=== PATIENT | female | born 1975 | race Caucasian/White ===

== ENCOUNTER 2023-01-12 13:26 | Emergency (ER) | payer OTHER, SELFPAY ==
[2023-01-12 13:31] VITALS: BP 158/88; PULSE 77; RESP 16; TEMP 36.7; O2SAT 99; BMI 47.6
--- NOTE | 2023-01-12 14:15 | CT_ITS ---
The [address] [address] Patient Name: RADHA BENTLEY MRN: [id number] date: 1975 Sex: F Assigned Patient Location: ER Current Patient Location: ER Accession/Order Number: [id number] Exam Date: 01/12/2023 14:38 Report Date: 01/12/2023 14:59 At the request of: ERWIN DOMINGUEZ Procedure: CT cervical spine wo con CT cervical spine CLINICAL: Neck pain. TECHNIQUE: Contiguous transaxial images obtained from skullbase through cervical spine without administration of intravenous contrast. Coronal and sagittal reformations were obtained. Dose reduction: mA and/or kV are were adjusted by automated exposure control software based upon patients height and weight. FINDINGS: There are no prior exams for comparison. There is no prevertebral soft tissue swelling or acute cervical spine fracture. There is no significant intervertebral disc space narrowing. There is no listhesis. The osseous central canal and osseous neural foramina are patent. There is atlantodental articulation osteoarthritis. CT/CT cervical spine wo con IMPRESSION: 1. No acute cervical spine fracture. Electronically authenticated by: MILEY SPRING Date: 01/12/2023 14:59
--- NOTE | 2023-01-12 14:19 | ED_ITS ---
HPI - Neck Pain/Injury General Chief Complaint: Neck Pain/Injury Stated Complaint: NECK PAIN Time Seen by Provider: 01/12/23 14:09 Source: patient Mode of arrival: walk-in History of Present Illness HPI Narrative: Patient is coming to the ER with a left-sided neck pain associated with no numbness tingling but she did mention that initially when she had the neck pain she felt that it was radiating down her back, the patient have a left hip and lower back pain that not a new complaint No numbness tingling or no radiation down her legs The patient also has no radiation down her arms no weakness She mentioned that the injury happened at work she was not carrying any heavy objects but she was turning her neck to the left side when all of a sudden the pain started Related Data Previous Rx's Medication Instructions Recorded diclofenac sodium 75 mg 75 mg PO BID PRN pain #14 tabs 01/12/23 tablet,delayed release orphenadrine citrate 100 mg 100 mg PO DAILY PRN muscle spasm 01/12/23 tablet,extended release #10 tabs Allergies Allergy/AdvReac Type Severity Reaction Status Date / Time amoxicillin [From Augmentin] Allergy Severe Verified 01/12/23 13:38 cefaclor [From Ceclor] Allergy Severe Verified 01/12/23 13:38 clavulanic acid Allergy Severe Verified 01/12/23 13:38 [From Augmentin] Sulfa (Sulfonamide Allergy Severe Verified 01/12/23 13:38 Antibiotics) Review of Systems ROS Status of ROS 10 or more systems reviewed and unremarkable except as noted in history and below Exam Narrative Exam Narrative: Nurses notes and vital signs reviewed and patient is not hypoxic. General: Well-appearing and in no apparent distress. Skin: Warm, dry, no pallor noted. No rash. Head: Normocephalic, atraumatic. Neck: Supple, left paraspinal muscle tenderness and no intervertebral line tenderness Eye: Pupils are equal, round and EOMI. No scleral icterus. Ears, Nose, Mouth, and Throat: TM are clear, no nasal mucosal hypertrophy. Oral mucosa is moist, no posterior oropharynx erythema, uvula is mid-line Cardiovascular: Regular Rate and Rhythm without murmur, gallop or rub. Respiratory: No accessory muscle use or respiratory distress. Lungs are clear to auscultation, no wheezing, rales or rhonchi Chest Wall: no tenderness Back: No midline thoracic or lumbar vertebral tenderness. No CVA tenderness Musculoskeletal: normal ROM, no calf or popliteal tenderness, no lower extremity edema/swelling GI: Abdomen is soft, non-distended. Normal bowel sounds. No masses appreciated. No tenderness to palpation. No rebound, guarding, or rigidity noted. Neurological: A&O x4. No cranial nerve dysfunction observed. No truncal ataxia. Moves all extremities. Sensation intact. Psychiatric: Cooperative and interactive. Normal mood and affect. Constitutional Vital Signs, click to edit/add: Last Vital Signs Temp 98.1 F 01/12/23 13:31 Pulse 77 01/12/23 13:31 Resp 16 01/12/23 13:31 BP 158/88 H 01/12/23 13:31 Pulse Ox 99 01/12/23 13:31 O2 Del Method Room Air 01/12/23 13:31 Course Vital Signs Vital signs: Vital Signs Temperature 98.1 F 01/12/23 13:31 Pulse Rate 77 01/12/23 13:31 Respiratory Rate 16 01/12/23 13:31 Blood Pressure 158/88 H 01/12/23 13:31 Pulse Oximetry 99 01/12/23 13:31 Oxygen Delivery Method Room Air 01/12/23 13:31 Temperature 98.1 F 01/12/23 13:31 Pulse Rate 77 01/12/23 13:31 Respiratory Rate 16 01/12/23 13:31 Blood Pressure 158/88 H 01/12/23 13:31 Pulse Oximetry 99 01/12/23 13:31 Oxygen Delivery Method Room Air 01/12/23 13:31 MDM - Neck Pain/Injury MDM Narrative Medical decision making narrative: Treated in the ER with Toradol and Norflex The patient also had a CAT scan of the cervical spine showing no acute significant pathology the patient was discharged home with more supportive care with rest from carrying any heavy objects more than 10 pounds for the next 2 to 3 days Follow-up with occupational health as outpatient Discharge Plan Discharge Chief Complaint: Neck Pain/Injury Clinical Impression: Strain of neck muscle Patient Disposition: Home, Self-Care Time of Disposition Decision: 15:14 Condition: Good Prescriptions / Home Meds: New orphenadrine citrate 100 mg tablet extended release 100 mg PO DAILY PRN (Reason: muscle spasm) Qty: 10 0RF diclofenac sodium 75 mg tablet,delayed release (DR/EC) 75 mg PO BID PRN (Reason: pain) Qty: 14 0RF Instructions: Cervical Strain (ED) Stand Alone Forms: Portal Instructions Referrals: [facility] [Outside] - As soon as possible Physician,Non-Staff, MD [Primary Care Provider] - 1 week
[2023-01-12] MEDS: ORPHENADRINE 60 MG/ 2 ML VIAL IM (14:22)
[2023-01-12] MEDS: KETOROLAC TROMETHAMINE 60 MG/2 ML VIAL IM (14:22)
== END 2023-01-12 15:39 | disposition home or self-care (01) ==
PROVIDERS: Emergency Provider Emergency Medicine
DX: S16.1XXA Strain of muscle, fascia and tendon at neck level, initial encounter (principal); X50.9XXA Other and unspecified overexertion or strenuous movements or postures, initial encounter
CPT/HCPCS: 72125; 96372; 99285

== ENCOUNTER 2025-01-24 12:11 | Emergency (ER) | payer OTHER, SELFPAY ==
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
[2025-01-24 12:14] VITALS: BP 175/94; PULSE 82; TEMP 36.9; O2SAT 100; BMI 38.0
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
--- OUTSIDE RECORDS SUMMARY | 2025-01-24 12:47 | XMS_ITS | Encounter Summary ---
Author Organization [facility] Address [address] [place] [address] Care Team Providers Care Perfect Binder Feeder Offbearer Name Role Phone Jacky Rolle MD Primary Care Provider [phone] Encounter Details DateTypeDepartmentCare Team (Latest Contact Info)Jputpscksok68/06/2025Travel Social History Tobacco UseTypesPacks/DayYears UsedDateSmoking Tobacco: NlzmznMsbhlvtvdg0927 - 2012Smokeless Tobacco: NeverAlcohol UseStandard Drinks/WeekCommentsYes0 (1 standard drink = 0.6 oz pure alcohol)PHQ-2AnswerDate RecordedPatient Health Questionnaire-2 Gbmqb43303/19/2024Humiliation, Afraid, Rape, and Kick questionnaireAnswerDate RecordedWithin the [...] relatives?Twice a week01/17/2025How often do you attend bahai or restorationism services?Never01/17/2025Do you belong to any clubs or organizations such as bahai groups, unions, fraternal or athletic groups, or school groups?No01/17/2025How often do you attend meetings of the clubs or organizations you belong to?Never01/17/2025re you , , , , never , or living with a partner?Never epgxcbs7101/17/2025 AUDIT-CAnswerDate RecordedQ1: How often do you have a drink containing alcohol? Monthly or less01/17/2025Q2: How many drinks containing alcohol do you have on a typical day when you are drinking?3 or Q3: How often do you have six or more drinks on one occasion?Less than lnqtubz7401/17/2025Overall Financial Resource Strain (CARDIA)AnswerDate RecordedHow hard is it for you to pay for the very basics like food, housing, medical care, and heating?Not hard at all 01/17/2025[facility] [place] [facility] - Occupational Stress QuestionnaireAnswerDate RecordedDo you feel stress - tense, restless, nervous, or anxious, or unable to sleep at night because yourmind is troubled all the time - these days?Only a mxsnsr7501/17/2025Exercise Vital SignAnswerDate Recorded On average, how many [...] were you homeless or living in a [place] health care facility (including now)?No01/17/2025B1300 Health LiteracyAnswerDate RecordedHow often do you need to have someone help you when you read instructions, pamphlets, or other written material from your doctor or pharmacy?Never01/17/2025CommentsUnknownSex and Gender InformationValue Date RecordedSex Assigned at BirthNot on fileLegal LbnImdcrt43/15/2023 11:19 PM EDTGender IdentityNot on fileSexual OrientationNot on filedocumented as of this encounter Functional Status * AUDIT-C ScoreAnswerDate of MgwhtgdzolJrkkrm006/06/2025 7:55 AM Lianne, Generic * Q1: How often do you have a drink containing alcohol?AnswerDate of Assessment AuthorMonthly or less01/17/2025 7:55 AM Lianne, Generic * Q2: How many drinks containing alcohol do you have on a typical day when you are drinking?AnswerDate of AssessmentAuthor3 or 7:55 AM EST [place], Generic * Q3: How often do you have six or more drinks on one occasion?AnswerDate of AssessmentAuthorLess than cyeukok6201/17/2025 7:55 AM Lianne, Generic * Over the past 2 weeks, how often have you been bothered by any of the following problems?QuestionAnswerDate of AssessmentAuthorLittle interest or pleasure in doing thingsNot at all01/17/2025 8:42 AM Concepcion Vitale LPN Feeling down, depressed, or hopelessNot at all01/17/2025 8:42 AM Concepcion Vitale LPNPatient Health Questionnaire-2 Xrqtv859 8:42 AM Concepcion Vitale LPN documented as of this encounter Plan of Treatment Not on file documented as of this encounter Visit Diagnoses Not on filedocumented in this encounter Care Teams Team MemberRelationshipSpecialtyStart DateEnd Date Jacky Rolle MD [address] [address] PCP - GeneralInternal Medicine03/21/23documented as of this encounter
--- OUTSIDE RECORDS SUMMARY | 2025-01-24 12:47 | XMS_ITS | Clinical Summary ---
Author Organization [facility] Address [address] [facility] [place] [address] Care Team Providers Care Head Tennis Professional Name Role Phone Ruslan Chong MD Unavailable [phone] Monique Jensen MD Unavailable [phone] Source Comments The following information is NOT included in Care Everywhere downloads:Psychiatric notes, ECG results, Cardiac Rehab notes, Pulmonary Function notes, data from [employer] (includes but not limited toPregnancy data,audiograms, eye exams, pre-surgical evaluation notes, well-child exam data).[facility] Allergies Active AllergyReactionsCriticalityNoted DateCommentsAmoxicillin-Pot Clavulanate Ytjhiksy37/09/2011upropionRash,Chest pain,Dry mouth,Cprgboo3912/09/2020efaclor Rash11/28/20152797WjksilzzwbmCkysomjw01/03/2000 took amoxicillin with no problem Sulfa Civrrrhojpc17/03/2000 stomache pains Medications MedicationSigDispense QuantityRefillsLast FilledStart DateEnd DateStatus Multiple Vitamin (MULTI-VITAMIN ORAL) Take by mouth daily.Active albuterol (PROVENTIL HFA) INHALATION HFA inhaler (VENTOLIN,PROAIR,PROVENTIL) 90mcg Inhale 2 Puffs by mouth every 4 hours as needed for Wheezing. 8.5 g ctive levothyroxine (SYNTHROID) 137 MCG tablet TAKE 1 TABLET BY MOUTH ONCE DAILY (30 MINUTES BEFORE BREAKFAST) 90 Tablet ctive venlafaxine (EFFEXOR XR) 37.5 MG ER capsule Take 1 Capsule by mouth daily. 90 Capsule 12/14/2022ctive triamterene-hydrochlorothiazide (DYAZIDE) 37.5-25 MG per capsule TAKE 1 CAPSULE BY MOUTH EVERY MORNING 90 Capsule 03/10/2023ctive Active Problems ProblemNoted DateDiagnosed DateCOVID-19 with pulmonary znjiggnsfvr12/28/2022 Yvzzouutfsmy29/18/2022ilateral carpal tunnel abgridlu42/02/2021arpal tunnel syndrome, hagrhvdwv30/08/2020Routine general medical examination at a health care mpmgbind73/27/2018Plantar jzzrrhepq07/27/2018Portal vein thrombosis 10/22/2015Right upper quadrant abdominal pain10/15/2015Postablative kzfymcrnofapaf31/14/2009sthma Overview (06/29/2018): asthma Other seborrheic dermatitisRosacea Resolved Problems ProblemNoted DateDiagnosed DateResolved DateGraves' icizgrl96 Overview (06/29/2018): Grave's disease Immunizations ImmunizationAdministration DatesNext DueInfluenza, unspecified formulation (CVX=88)01/25/2002MMR, Aohdnis-Gtdbd-Efnbhuj (CVX=03)02/08/2005Moderna Monovalent (12+ yrs) COVID-19 vaccine, mRNA, spike protein, LNP, PF, 100 mcg/0.5 mL (GVE=094)05/23/2021,04/25/2021TST-PPD, intradermal (PPD) (CVX=96)02/05/2005, 01/26/2005Td (adult), unspecified formulation (MPU=336)01/26/2005,08/10/1995Tdap (XGP=225)11/19/2013 Family History Medical HistoryRelationNameCommentsGood healthFatherGood healthMotherCoronary Artery DiseasePaternal GrandfatherHypertensionPaternal GrandfatherLipid Disorder Paternal GrandfatherCancerPaternal Grandmotherbrain tumorRelationNameStatus CommentsFatherMotherPaternal GrandfatherPaternal Grandmother Social History Tobacco UseTypesPacks/DayYears UsedDateSmoking Tobacco: FormerCigarettes0.55 Smokeless Tobacco: Never Tobacco Cessation:Counseling Given: Not Answered Alcohol UseStandard Drinks/WeekCommentsNo0 (1 standard drink = 0.6 oz pure alcohol)Humiliation, Afraid, Rape, and Kick questionnaireAnswerDate Recorded Within the last year, have you been afraid of your partner or ex-partner?No 07/07/2022Within the last year, have you been humiliated or emotionally abused in other ways by your partner or ex-partner?No07/07/2022Within the last year, have you been kicked, hit, slapped, or otherwise physically hurt by your partner or ex-partner?No07/07/2022Within the last year, have you been raped or forced to have any kind of sexual activity by your partner or ex-partner?No07/07/2022 Social Connection and Isolation Panel [NHANES]AnswerDate RecordedIn a typical week, how many times do you talk on the phone with family, friends, or neighbors?More than three times a week07/07/2022How often do you get together with friends or relatives?Once a week07/07/2022How often do you attend anabaptism or christian services?Never07/07/2022o you belong to any clubs or organizations such as anabaptism groups, unions, fraternal or athletic groups, or school groups? Yes07/07/2022How often do you attend meetings of the clubs or organizations you belong to?More than 4 times per year07/07/2022re you , , , , never , or living with a partner?Living with partner 07/07/2022Overall Financial Resource Strain (CARDIA)AnswerDate RecordedHow hard is it for you to pay for the very basics like food, housing, medical care, and heating?Not very hard07/07/2022HQ-2AnswerDate RecordedPHQ-2 Nojuc926 [place] [employer] - Occupational Stress Questionnaire AnswerDate RecordedDo you feel stress - tense, restless, nervous, or anxious, or unable to sleep at night because yourmind is troubled all the time - these days?To some htuxfq6207/07/2022Exercise Vital SignAnswerDate RecordedOn average, how many days per week do you engage in moderate to strenuous exercise (like a brisk walk)?3 days07/07/2022On average, how many minutes do you engage in exercise at this level?30 min07/07/2022Hunger Vital SignAnswerDate Recorded Within the past 12 months, you worried that your food would run out before you got the money to buymore.Never true07/07/2022Within the past 12 months, the food you bought just didn't last and you didn't have money to get more.Never true 07/07/2022RAPARE - TransportationAnswerDate RecordedIn the past 12 months, has lack of transportation kept you from medical appointments or from getting medications?No07/07/2022In the past 12 months, has lack of transportation kept you from meetings, work, or from getting things needed for daily living?No 07/07/2022Housing Stability Vital SignAnswerDate RecordedIn the last 12 months, was there a time when you were not able to pay the mortgage or rent on time?No 07/07/2022In the last 12 months, how many places have you lived?In the last 12 months, was there a time when you did not have a steady place to sleep or slept in pemaquidelter (including now)?No07/07/2022EducationAnswerDate RecordedWhat is the highest level of school you have completed or the highest degree you have received?Associate degree: occupational, technical, or vocational eogngiy2010/22/2020exually ActiveBirth ControlPartnersCommentsYesMale Substance UseTypesUse/WeekCommentsNoCommentsNoSex and Gender Information ValueDate RecordedSex Assigned at BirthNot on fileLegal RxbCfqwxi63/04/2012 8:07 AM ESTGender IdentityNot on fileSexual OrientationNot on file Last Filed Vital Signs Vital SignReadingTime TakenCommentsBlood Euxscwim827/8907/07/2022 3:28 PM EDT Wifib880407/07/2022 3:23 PM YWEVrhsjweamnm50.9 ??C (98.4 ??F)07/07/2022 3:23 PM EDTRespiratory Scgj804607/07/2022 3:23 PM EDTOxygen Tzzqdycxdp419%07/07/2022 3:23 PM EDTInhaled Oxygen Concentration--Nscbbg889.3 kg (271 lb 12.8 oz)07/07/2022 3:23 PM BLBRtnoic482.5 cm (5' 2 )07/07/2022 3:23 PM EDTBody Mass Index49.71 07/07/2022 3:23 PM EDT Plan of Treatment Health MaintenanceDue DateLast CryaIjhajztqTbxgtdhxlor40/03/1977Hepatitis C Kiavybkk33/03/1995Hepatitis A (HAV) Vaccine (optional start 19+ years)10/15/1995 Hepatitis B (HBV) Vaccine (1 of 3 - 19+ 3-dose series)10/15/1995Pneumococcal Vaccine(s) (1 of 2 - PCV)10/15/1995CRC Wwzglpcfy38/03/2022Cologuard (Stool DNA) 2021FIT2021TSH208/01/2021, 02/18/2020, 01/18/2019, Additional history existsBasic Metabolic Panel/ (Previously completed), 02/18/2020, 01/18/2019, Additional history existsMammography /, 1Pap Smear/01/2021, 02/28/2013, 02/11/2012, Additional history existsTetanus (Td or Tdap) Iafaftz2611/20/2023 11/19/2013, 01/26/2005, 08/10/1995COVID-19 Vaccine ( season) 503/02/2022, 04/25/2021Influenza Vaccine (#1)/ Worjrxhtvsy41/11/959081/01/2021, 02/18/2020, 01/18/2019, Additional history existsShingles (RZV) Vaccine (1 of 2)2026Tdap TdafzzfQrcrlgfuv01/08/2014 HIV UthyCccwdjotu71/07/2016, 12/18/2013, 01/26/2005, Additional history exists Goals GoalPatient Goal TypeAssociated ProblemsRecent ProgressPatient-Stated?Author Blood Pressure < 140/90 Blood Nefjvirk166/89(07/07/2022 3:28 PM EDT)Kadi Peters MD Lose weight GeneralNot on track(04/08/2015 10:39 AM EST)Geovanna Lopez MA Procedures Procedure NamePriorityDate/TimeAssociated DiagnosisCommentsMG MAMMO SCREEN BILAT KOBE W/TIQJebfwzn39/26/2023 12:48 PM EDT Screening mammogram for breast cancer SBRCayjyeu95/11/2021 9:47 AM EDT Irregular menses FULL LIPID BZLZLFBCsntysz67/11/2021 9:47 AM EDT Elevated cholesterol PAP JLWMATtceijo69/11/2021 9:47 AM EDT Encounter for gynecological examination with Papanicolaou smear of cervix BASIC METABOLIC YEEANMsbyrqw43/07/2020 9:37 AM EST Hypertension, unspecified type HIV 1/HIV 2 COMBO AG/EBWkxbabd84/07/2016 12:15 PM EST Portal vein thrombosis from Last 3 Months or Most Recently Relevant to Health Maintenance Results * MG MAMMO SCREEN BILAT KOBE W/CAD (07/07/2022 12:48 PM EDT)ComponentValueRef RangeTest MethodAnalysis TimePerformed AtPathologist SignatureBreast Density The breast tissue is heterogeneously dense, which may obscure detection of small masses.RADIOLOGYBI-RADS Category0: Incomplete, Needs Additional Imaging EvaluationRADIOLOGYEstimated lifetime Breast Cancer riskAverage (less than 15%, as per the Tyrer-Cuzick/BRISA model)RADIOLOGYAnatomical RegionLaterality ModalityMG ScreeningN/AMammographySpecimen (Source)Anatomical Location / LateralityCollection Method / VolumeCollection TimeReceived Time07/07/2022 12:48 PM EDT Narrative 07/07/2022 1:11 PM EDT EXAM: BILATERAL SCREENING MAMMOGRAM W/TOMOSYNTHESIS AND CAD CLINICAL HISTORY: Patient is 46 years old and is seen for screening. The patient has no personal history of cancer. The patient has no family history of breast cancer. COMPARISON: The present examination has been compared to a prior imaging study performed at [facility] on 11/04/2020. TECHNIQUE: The following mammographic views were obtained: bilateral CC, CC with tomosynthesis, MLO and MLO with tomosynthesis. Computer-aided detection was utilized by the radiologist in the interpretation of this examination. MAMMOGRAM FINDINGS: The breast tissue is heterogeneously dense, which may obscure detection of small masses. There is a mass in the lower inner quadrant of the left breast at posterior depth. No suspicious masses, calcifications or other abnormalities are seen in the right breast. IMPRESSION: Mass in the left breast requires additional evaluation. A diagnostic left breast ultrasound exam ([id number]) is recommended. There is no evidence of malignancy in the right breast. BI-RADS Category 0: Incomplete, Needs Additional Imaging Evaluation The Breast Center Coordinator and Navigator will place a reflexive Epic order, contact and schedulethe appropriate appointments. RISK ASSESSMENT: Estimated lifetime breast cancer risk: Average (less than 15%, as per the Tyrer-Cuzick/BRISA model) NCI Lifetime Risk Score: 9.7% Procedure Note Pamella Stapleton MD - 07/07/2022 EXAM: BILATERAL SCREENING MAMMOGRAM W/TOMOSYNTHESIS AND CAD CLINICAL HISTORY: Patient is 46 years old and is seen for screening. The patient has nopersonal history of cancer. The patient has no family history of breastcancer. COMPARISON: The present examination has been compared to a [facility]. TECHNIQUE: The following mammographic views were obtained: bilateral CC, CC with tomosynthesis, MLO and MLO with tomosynthesis. Computer-aided detectionwas utilized by the radiologist in the interpretation of thisexamination. MAMMOGRAM FINDINGS: The breast tissue is heterogeneously dense, which may obscure detection ofsmall masses. There is a mass in the lower inner quadrant of the left breast atposterior depth. No suspicious masses, calcifications or other abnormalities are seen inthe right breast. IMPRESSION: Mass in the left breast requires additional evaluation. A diagnostic leftbreast ultrasound exam ([id number]) is recommended. There is no evidence of malignancy in the right breast. BI-RADS Category 0: Incomplete, Needs Additional Imaging Evaluation The Breast Center Coordinator and Navigator will place a reflexive Epicorder, contact and schedule the appropriate appointments. RISK ASSESSMENT: Estimated lifetime breast cancer risk: Average (less than 15%, as per the Tyrer-Cuzick/BIRSA model) NCI Lifetime Risk Score: 9.7% Authorizing ProviderResult TypeResult StatusMarAllison BYRD MAMMOGRAPHY Final Result * PAP SMEAR (10/22/2020 9:47 AM EDT)ComponentValueRef RangeTest MethodAnalysis TimePerformed AtPathologist SignatureCase ReportGynecologic Cytology Report ? Case: [id number] ? Authorizing Provider: ??Monique Jensen MD ?Collected: ? 10/22/2020 0947 ? Ordering Location: ? [facility] ? Received: ?10/23/2020 0955 ? HEALTH INFORMATION SYSTEMS TECHNICIAN ? First Screen: ?PersolRowena Klein, ? CT(ASCP) ? Specimen: ?CTP PAP SCREEN, Cervical Thin Prep ? 10/28/2020 9:30 AM [facility] LABORATORYSpecimen AdequacySatisfactory for evaluation; endocervical/transformation zone component rlkkvmw8510/28/2020 9:30 AM [facility] LABORATORYGeneral CategorizationNegative for intraepithelial lesion or bsycscryks91/17/2021 9:30 AM [facility] LABORATORYEvaluated by: . I certify that I personally conducted the diagnostic evaluation of the above specimen(s) and have rendered the final diagnosis(es). 10/28/2020 9:30 AM [facility] LABORATORYReflex HPVPerform HPV if Negative or ASCUS10/28/2020 9:30 AM [facility] LABORATORYEducational Note10/28/2020 9:30 AM [facility] LABORATORYComment: The Pap smear is a screen test for the detection of precancerous or cancerous lesions. A negative result does not entirely exclude the presence of an abnormality. This ThinPrep pap test was scanned by the [employer] Imaging System ([employer]), as well as examined by the certified addiction counselor and/or Cytopathologist listed above to enhance the sensitivity of this screening test for cervical cancer and precancerous disease. Specimen (Source)Anatomical Location / LateralityCollection Method / Volume Collection TimeReceived TimeThinPrep (Cervical Thin Prep)10/22/2020 9:47 AM EDT 10/23/2020 9:55 AM EDT Narrative Authorizing ProviderResult TypeResult StatusMonique BYRD CP/AP ORDERABLEFinal ResultPerforming OrganizationAddressty/State/ZIP CodePhone Number [facility] [address] [place] [address] * TSH (10/22/2020 9:47 AM EDT)ComponentValueRef RangeTest MethodAnalysis Time Performed AtPathologist SignatureTSH3.1010.450 - 5.330 uIU/mL10/22/2020 5:09 PM EDCOOS[facility] PATHOLOG[facility] LABORATORYComment: Referance range for women as applicable: First Trimester: ?? 0. 050 to 3.700 uIU/mL Second Trimester: ??0. 310 to 4.350 uIU/mL Third Trimester: ?? 0. 410 to 5.180 uIU/mL Specimen (Source)Anatomical Location / LateralityCollection Method / Volume Collection TimeReceived TimeBloodBLOOD SPECIMEN / UnknownVenipuncture / Unknown 10/22/2020 9:47 AM EDT10/22/2020 1:51 PM EDT Narrative Authorizing ProviderResult TypeResult StatusMonique Jensen MD98 GENERAL LAB Final ResultPerforming OrganizationAddressCity/State/ZIP CodePhone Number [facility] [address] [place] [phone] * (ABNORMAL) FULL LIPID PROFILE (10/22/2020 9:47 AM EDT)ComponentValueRef Range Test MethodAnalysis TimePerformed AtPathologist RfvlsipadSnlsyipkmmh333(H)<181 mg/dL10/22/2020 6:16 PM EDCO[facility] UFXEOCLTLZGhroirlniloaa750(H)<151 mg/dL10/22/2020 6:16 PM EDCO[facility] PATHOLOGY LABORATORYHDL Txcsmjmremz45(L)>54 mg/dL10/22/2020 6:16 PM EDCO[facility] PATHOLOGY LABORATORYLDL beflnzftdmj986(H)<111 mg/dL10/22/2020 6:16 PM EDCO[facility] PATHOLOGY LABORATORYNon-HDL Bswvlvnmadb049(H) <130 mg/dL10/22/2020 6:16 PM EDCO[facility] PATHOLOGY LABORATORYChol/HDL Ratio4.69 10/22/2020 6:16 PM [facility] LABORATORYLDL/HDL Ratio2.98<3.57010/22/2020 6:16 PM [facility] LABORATORYSpecimen (Source)Anatomical Location / LateralityCollection Method / VolumeCollection TimeReceived TimeBloodBLOOD SPECIMEN / UnknownVenipuncture / Whkzuja4010/22/2020 9:47 AM EDT10/22/2020 1:51 PM EDT Narrative Authorizing ProviderResult TypeResult StatusPaula Tre Jensen MD98 GENERAL LAB Final ResultPerforming OrganizationAddressCity/State/ZIP CodePhone Number [facility] [address] [place] [address] * (ABNORMAL) BASIC METABOLIC PANEL (02/18/2020 9:37 AM EST)ComponentValueRef RangeTest MethodAnalysis TimePerformed AtPathologist JnimetfzkEubbqmo475(H)68 - 110 mg/dL02/18/2020 2:09 PM [facility] VWOTSOOENZAcdjwx515584 - 148 mmol/L104/20/2019 2:09 PM [facility] LABORATORYPotassium4.03.3 - 5.3 mmol/L104/20/2019 2:09 PM [facility] LABORATORYCarbon Nrgjdwe1229 - 30 mmol/L104/20/2019 2:09 PM [facility] DCBGKSYZEGRdqoindx47775 - 111 mmol/L 02/18/2020 2:09 PM [facility] LABORATORYBlood Urea Fifocdaf769 - 22 mg/dL02/18/2020 2:09 PM [facility] LABORATORYCreatinine0.800.50 - 1.10 mg/dL02/18/2020 2:09 PM [facility] LABORATORYCalcium9.78.4 - 10.4 mg/dL 02/18/2020 2:09 PM [facility] LABORATORYAnion Nah707 - 13104/20/2019 2:09 PM [facility] LABORATORYEstimated GFR (CKD-EPI)91>=60 mL/min/1.73sqm 02/18/2020 2:09 PM [facility] PATH[facility] LABORATORYSpecimen (Source)Anatomical Location / LateralityCollection Method / VolumeCollection TimeReceived Time BloodBLOOD SPECIMEN / UnknownVenipuncture / Ckmtrot3302/18/2020 9:37 AM EST 02/18/2020 1:41 PM EST Narrative Authorizing ProviderResult TypeResult StatusKadi Moreno MD98 GENERAL LAB Final ResultPerforming OrganizationAddressty/State/ZIP CodePhone Number [facility] [address] [place] [address] * HIV 1/HIV 2 COMBO AG/AB (01/19/2016 12:15 PM EST)ComponentValueRef RangeTest MethodAnalysis TimePerformed AtPathologist SignatureHIV 1/2 Ag/AbNonreactive Nonreactive 01/19/2016 5:37 PM ESTUNM CHILDREN'S H[facility] PATHOLOGY LABORATORYSpecimen (Source)Anatomical Location / LateralityCollection Method / VolumeCollection TimeReceived TimeBlood BLOOD SPECIMEN / UnknownVenipuncture / Ojsgwfc2601/19/2016 12:15 PM EST01/19/2016 2:48 PM EST Narrative Authorizing ProviderResult TypeResult StatusDat BYRD HIV/HEP/SYPH TESTINGFinal ResultPerforming OrganizationAddressty/State/ZIP CodePhone Number [facility] [address] [place] [phone] from Last 3 Months or Most Recently Relevant to Health Maintenance Insurance Advance Directives TypeDate RecordedPatient RepresentativeExplanationLiving Will06/29/2006Healthcare Power of Attorney06/29/2006 * No Code Status (Latest Code Status on File) Date ActivatedDate InactivatedComments07/22/2003 3:05 PM07/22/2003 3:05 PM Care Teams Team MemberRelationshipSpecialtyStart DateEnd Date Ruslan Chong MD [address] [place] [address] PhysicianOrthopaedics05/16/20 Monique Jensen MD [address] [place] [address] PhysicianObstetrics/Gynecology11/14/20
--- OUTSIDE RECORDS SUMMARY | 2025-01-24 12:47 | XMS_ITS | Encounter Summary ---
Author Organization [facility] Address [address] [place] [address] Care Team Providers Care Ehs Manager Name Role Phone Jacky Rolle MD Primary Care Provider [phone] Encounter Details DateTypeDepartmentCare Team (Latest Contact Info)Rikcfvpxuuc42/06/2025bstract [facility] [address] [place] [address] Jacky Rolle MD [address] [place] [address] Social History Tobacco UseTypesPacks/DayYears UsedDateSmoking Tobacco: PussziFhnikwhzrz0770 - 2012Smokeless Tobacco: NeverAlcohol UseStandard Drinks/WeekCommentsYes0 (1 standard drink = 0.6 oz pure alcohol)PHQ-2AnswerDate RecordedPatient Health Questionnaire-2 Hetww42703/19/2024Humiliation, Afraid, Rape, and Kick questionnaireAnswerDate RecordedWithin the [...] sexual activity by your part ner or ex-partner?No11/06/2025Social Connection and Isolation PanelAnswerDate RecordedIn a typical week, how many times do you talk on the phone with family, friends, or neighbors?More than three times a week01/17/2025How often do you get together with friends or relatives?Twice a week01/17/2025How often do you attend uatsdin or yarsanism services?Never01/17/2025Do you belong to any clubs or organizations such as uatsdin groups, unions, fraternal or athletic groups, or school groups?No01/17/2025How often do you attend meetings of the clubs or organizations you belong to?Never01/17/2025re you , , , , never , or living with a partner?Never obfxwed4401/17/2025 AUDIT-CAnswerDate RecordedQ1: How often do you have a drink containing alcohol? Monthly or less01/17/2025Q2: How many drinks containing alcohol do you have on a typical day when you are drinking?3 or Q3: How often do you have six or more drinks on one occasion?Less than sjnfmkq1301/17/2025Overall Financial Resource Strain (CARDIA)AnswerDate RecordedHow hard is it for you to pay for the very basics like food, housing, medical care, and heating?Not hard at all 01/17/2025Finsteward [facility] [place] [facility] Occupational [employer] - Occupational Stress QuestionnaireAnswerDate RecordedDo you feel stress - tense, restless, nervous, or anxious, or unable to sleep at night because yourmind is troubled all the time - these days?Only a hxczxf7801/17/2025Exercise Vital SignAnswerDate Recorded On average, how many [...] were you homeless or living in a group home (including now)?No01/17/2025B1300 Health LiteracyAnswerDate RecordedHow often do you need to have someone help you when you read instructions, pamphlets, or other written material from your doctor or pharmacy?Never01/17/2025CommentsUnknownSex and Gender InformationValue Date RecordedSex Assigned at BirthNot on fileLegal OsoEptqlv17/15/2023 11:19 PM EDTGender IdentityNot on fileSexual OrientationNot on filedocumented as of this encounter Functional Status * AUDIT-C ScoreAnswerDate of CmpkkdtunzFasjuy022/06/2025 7:55 AM Lianne Generic * Q1: How often do you have a drink containing alcohol?AnswerDate of Assessment AuthorMonthly or less01/17/2025 7:55 AM Lianne Generic * Q2: How many drinks containing alcohol do you have on a typical day when you are drinking?AnswerDate of AssessmentAuthor3 or 7:55 AM NORMA Perry Generic * Q3: How often do you have six or more drinks on one occasion?AnswerDate of AssessmentAuthorLess than vmufsej2001/17/2025 7:55 AM Lianne Generic * Over the past 2 weeks, how often have you been bothered by any of the following problems?QuestionAnswerDate of AssessmentAuthorLittle interest or pleasure in doing thingsNot at all01/17/2025 8:42 AM Concepcion Vitale LPN Feeling down, depressed, or hopelessNot at all01/17/2025 8:42 AM Concepcion Vitale LPNPatient Health Questionnaire-2 Djzbv74803/19/2024 8:42 AM Concepcion Vitale LPN documented as of this encounter Plan of Treatment Not on file documented as of this encounter Visit Diagnoses Not on filedocumented in this encounter Care Teams Team MemberRelationshipSpecialtyStart DateEnd Date Jacky Rolle MD [address] [place] [id number] PCP - GeneralInternal Medicine03/21/23documented as of this encounter
--- OUTSIDE RECORDS SUMMARY | 2025-01-24 12:49 | XMS_ITS | CCD ---
Author Organization [facility] Care Team Providers Care Tree Shear Operator Name Role Phone Kadi Moreno MD Primary Care Provider Ruslan Chong MD Unavailable [phone] Monique Jensen MD, V. Unavailable [facility] Primary Care Unavailable LATIA HOLLAND Consulting Unavailable AMALIA, LATIA Admitting Unavailable LATIA HOLLAND Attending Unavailable ADARSH ., JAKOB Consulting Unavailable RONI RAMOS Consulting Unavailable Kadi Moreno MD Primary Care Provider Ruslan Chong MD Unavailable [phone] Monique Jensen MD, V. Unavailable PROVIDER, UNKNOWN Attending Unavailable KADI MORENO Primary Care Unavailable OMAR, KAVON Referring Unavailable PROVIDER, UNKNOWN Admitting Unavailable PROVIDER, UNKNOWN Attending Unavailable PROVIDER, UNKNOWN Admitting Unavailable KADI MORENO Primary Care Unavailable PROVIDER, UNKNOWN Attending Unavailable KADI MORENO Primary Care Unavailable DANAWABRYNN, KAVON Referring Unavailable PROVIDER, UNKNOWN Admitting Unavailable PROVIDER, UNKNOWN Attending Unavailable KADI MORENO Primary Care Unavailable DANAWALA, KAVON Referring Unavailable PROVIDER, UNKNOWN Admitting Unavailable ESEQUIEL Rolle Primary Care Provider MD Suze Gonzalez Emergency Provider Jacky Rolle MD Primary Care Provider Ruslan Chong MD Unavailable Suze Gonzalez Attending Unavailable Suze Gonzalez Admitting Unavailable Jacky Rolle Primary Care Unavailable ROSALIO, JOSELYN Attending Unavailable ALISHA LOU Attending Unavailable SANTAAMRIA, JOSELYN Attending Unavailable SANTAMARIA, JOSELYN Attending Unavailable SANTAMARIA, JOSELYN Attending Unavailable SANTAMARIA, JOSELYN Attending Unavailable HEMMER, ALISHA Berry Attending Unavailable HEMMER, ALISHA Berry Attending Unavailable MEE PRAKASH Attending Unavailable HEMMER, ALISHA Berry Attending Unavailable HEMMER, ALISHA Berry Attending Unavailable SANTAMARIA, JOSELYN Attending Unavailable JACKY ROLLE Referring Unavailable SANTAMARIA, JOSELYN Attending Unavailable SANTAMARIA, JOSELYN Attending Unavailable SANTAMARIA, JOSELYN Attending Unavailable SANTAMARIA, JOSELYN Attending Unavailable SANTAMARIA, JOSELYN Attending Unavailable Allergies Allergy ClassificationReported Allergen(s)Allergy TypeDate of OnsetReaction(s) Facility (20 sources)Amoxicillin / Clavulanate; Translations: [AMOXICILLIN-POT CLAVULANATE]Drug Lmimnwe45-40-2643Rghfqyhk, GI intoleranceMetro[facility] (20 sources)buPROPion; Translations: [BUPROPION]Drug Ggoaaxz03-25-8650Xtzz, Chest pain, Dry mouth, Itching, OtherMetro[facility] Work Phone: (20 sources)Cefaclor; Translations: [CEFACLOR]Drug Xmkrvxa88-46-5170Hyet [facility] Work Phone: (20 sources)Penicillins; Translations: [PENICILLINS]Propensity to adverse reactions to vyfe42-74-1991Rcildsyv, GI intoleranceMetroHealth Work Phone: (20 sources)Sulfonamides (Antibiotic); Translations: [SULFA ANTIBIOTICS] Propensity to adverse reactions to tvjb25-82-8282GpdsbTppvfu (2 sources)AmoxicillinDrug Bhzdozc10-24-5048KgojzvwbWzf [facility] Repository (1 source)Amoxicillin / ClavulanateDrug Nsyxnky17-75-3361Ghp [facility] Repository (1 source)CefaclorDrug Ctzykjs80-97-2576Lzp [facility] Repository (1 source)Sulfonamides (Antibiotic)Drug allergy (disorder)69-40-2423Nzx [facility] Repository (2 sources)Clavulanate; Translations: [clavulanic acid]Drug Ifeuttv56-20-7069 [facility] (2 sources)Sulfonamides (Antibiotic); Translations: [Sulfa (Sulfonamide Antibiotics)]Allergy to ihzpgvftw64-09-2248Ewrvdlromtbgtdct [facility] (12 sources)Amphetamine / DextroamphetamineDrug Poabnnf66-72-2156KoyyoljrCFNL Healthcare Work Phone: (8 sources)LisdexamfetamineDrug Motrafl69-16-4639E[facility] (1 source)AmoxicillinDrug Yojsouk24-67-3048KslgjtqiiPremier Health [facility] (1 source)CefaclorDrug Rfbfvdj32-52-9669CahtukxjyPremier Health [facility] Rep[facility] (2 sources)atomoxetineDrug Iikyyzz09-73-6364DjceaLQNQ Healthcare Medications Current Medications MedicationDrug Class(es)DatesSig (Normalized)Sig (Original)[id number] 200 actuat albuterol 0.09 mg/actuat metered dose inhaler (12 sources)beta2-Adrenergic AgonistStart: 79-55-9216gazo 2 puff(s) by mouth every four hours as needed for wheezingalbuterol (PROVENTIL HFA) INHALATION HFA inhaler (VENTOLIN,PROAIR,PROVENTIL) 90mcg Inhale 2 Puffs by mouth every 4 hours as needed for Wheezing. 8.5 g 1 03/31/2021 Rhjjyx59 hr amphetamine aspartate 3.75 mg / amphetamine sulfate 3.75 mg / dextroamphetamine saccharate 3.75 mg / dextroamphetamine sulfate 3.75 mg extended release oral capsule (1 source)Central Nervous System StimulantStart: 06-13-2024 End: 04-47-0837odqj 1 capsule by mouth every twenty-four hours in the morning amphetamine-dextroamphetamine XR (Adderall XR) 15 MG 24 hr capsule Indications: Attention or concentration deficit Take 1 capsule (15 mg) by mouth in the morning. Do not crush or chew.. 30 capsule 06/13/2024 07/13/2024 Active atomoxetine 25 mg oral capsule (12 sources)Norepinephrine Reuptake InhibitorStart: 07-31-2024 End: 56-52-4202hqld 1 capsule by mouth once dailyatomoxetine (Strattera) 25 MG capsule Indications: Attention or concentration deficit Take 1 capsule (25 mg) by mouth Daily Swallow capsule whole; do not open. If opened accidentally, do not touch eyes; wash hands immediately (product is an eye irritant). 100 capsule 3 07/31/2024 01/17/2025 DiscontinuedcloNIDine hydrochloride 0.1 mg oral tablet (2 sources)Central alpha-2 Adrenergic AgonistStart: 36-88-1227guxm 1 tablet by mouth in the morningcloNIDine (Catapres) 0.1 MG tablet Indications: Attention or concentration deficit Take 1 tablet (0.1 mg) by mouth in the morning and 1 tablet (0.1 mg) before bedtime. 60 tablet 2 01/17/2025 ActiveStart: 01-17-2025 take 1 tablet by mouth in the morningcloNIDine (Catapres) 0.1 MG tablet Indications: Attention or concentration deficit Take 1 tablet (0.1 mg) by mouth in the morning and 1 tablet (0.1 mg) before bedtime. 60 tablet 2 01/17/2025 Activecodeine phosphate 2 mg/ml / guaiFENesin 40 mg/ml oral solution (3 sources)Opioid AgonistStart: 07-07-2022 End: 63-71-7973qdsv 5 mL by mouth every four hours as needed for cough guaifenesin-codeine 200-10 MG/5ML oral liquid Indications: Cough, unspecified type Take 5 mL by mouth every 4 hours as needed for Cough for up to 7 days. 240 mL 0 07/07/2022 07/14/2022 ActivehydroCHLOROthiazide 25 mg / triamterene 37.5 mg oral capsule (20 sources)Potassium-sparing Diuretic, Thiazide DiureticStart: 19-56-8123kzvw 1 capsule by mouth in the morningtriamterene-hydroCHLOROthiazide (Dyazide) 37.5-25 MG capsule Indications: Primary hypertension Take1 capsule by mouth in the morning. 90 capsule 3 05/14/2024 ActiveStart: 44-05-0240jjwv 1 capsule by mouth in the morningtriamterene-hydroCHLOROthiazide (Dyazide) 37.5-25 MG capsule Indications: Primary hypertension (CMS/HCC) Take 1 capsule by mouth in the morning. 90 capsule 2 06/14/2023 ActiveStart: 49-79-0379lkgb 1 capsule by mouth once daily in the morningtriamterene-hydrochlorothiazide (DYAZIDE) 37.5-25 MG per capsule TAKE 1 CAPSULE BY MOUTH EVERY MORNING 90 Capsule 03/10/2023 Active Start: 66-33-2731xcyd 1 capsule by mouth once daily in the morningtriamterene- hydrochlorothiazide (DYAZIDE) 37.5-25 MG per capsule Take 1 Capsule by mouth every morning. 90 Capsule 3 01/08/2022 ActivelevoFLOXacin 750 mg oral tablet (5 sources)Quinolone AntimicrobialStart: 11-18-2023 End: 63-91-0011mivy 1 tablet by mouth once dailylevoFLOXacin (Levaquin) 750 MG tablet Indications: Acute pyelonephritis Take 1 tablet (750 mg) by mouth Daily for 6 days 6 tablet 11/22/2023 11/28/2023 Activelevothyroxine sodium 0.137 mg oral tablet (20 sources)l-ThyroxineStart: 26-56-4138ypbg 1 tablet by mouth before mealtime levothyroxine (Synthroid, Levoxyl) 137 MCG tablet Indications: Postablative hypothyroidism Take 137mcg by mouth in the morning. Take before meals. 90 tablet 3 04/02/2024 ActiveStart: 12-08-2022 End: 29-95-1037pvjc 1 tablet by mouth before mealtimelevothyroxine (Synthroid, Levoxyl) 137 MCG tablet Indications: Postablative hypothyroidism (CMS/HCC) Take 137 mcg by mouth in the morning. Take before meals. 90 tablet 2 06/14/2023 03/31/2024 Discontinued (Reorder)Start: 96-58-5040kged 1 tablet by mouth once daily 30 minutes before breakfastlevothyroxine (SYNTHROID) 137 MCG tablet Take 137 mcg by mouth daily (30 minutes before breakfast).90 Tablet 3 01/08/2022 ActiveMultiple Vitamin (MULTI-VITAMIN ORAL) (12 sources)Multiple Vitamin (MULTI-VITAMIN ORAL) Take by mouth daily. Active Multiple Vitamin (MULTI-VITAMIN ORAL) Take by mouth daily. 0 ActiveoxyCODONE hydrochloride 5 mg oral capsule (1 source)Opioid AgonistStart: 16-58-2526rxba 5 mg by mouth every eight hours Oxycodone Active 5 MG PO Q8H 6 2 November 17ermethrin 50 mg/ml topical cream (2 sources)PyrethroidStart: 01-17-2025 End: 96-67-2389sydiypdfwi (Elimite) 5 % cream Indications: Dermatitis Apply topically 1 (one) time for 1 dose Apply to skin from hairline to toes and wash off 8-10 hours later. 60 g 01/17/2025 01/17/2025 Activephenazopyridine hydrochloride 200 mg delayed release oral tablet (2 sources)Start: 11-22-2023 End: 15-65-9246vdox 1 tablet by mouth three times daily as needed for muscle spasmsphenazopyridine (Pyridium) 200 MG tablet Indications: Acute pyelonephritis Take 1 tablet (200 mg) by mouth 3 (three) times a day as needed for bladder spasms for up to 2 days 6 tablet 11/22/2023 11/24/2023 ActivepredniSONE 20 mg oral tablet (3 sources)Start: 07-07-2022 End: 73-12-1615lovw 2 tablets by mouth once dailypredniSONE (DELTASONE) 20 MG tablet Take 2 Tablets by mouth daily for 5 days. 10 Tablet 0 07/07/2022 07/12/2022 ActivetraMADol hydrochloride 50 mg oral tablet (20 sources)Opioid AgonistStart: 04-02-2024 End: 16-96-9252syzl 1 tablet by mouth every six hours for paintraMADol (Ultram) 50 MG tablet Indications: Bilateral hand pain Take 1 tablet (50 mg) by mouth every 6 (six) hours if needed for severe pain 90 tablet 11/13/2024 ActiveStart: 02-08-2024 End: 84-49-8688pegi 1 tablet by mouth every six hours for paintraMADol (Ultram) 50 MG tablet Indications: Bilateral hand pain Take 1 tablet (50 mg) by mouth every 6 (six) hours if needed for severe pain for up to 10 days 30 tablet 02/27/2024 ActiveStart: 01-20-2024 End: 53-78-6832phuz 1 tablet by mouth every six hours for paintraMADol (Ultram) 50 MG tablet Indications: Nephrolithiasis Take 1 tablet (50 mg) by mouth every 6 (six) hours if needed for severe pain for up to 10 days 30 tablet 01/20/2024 01/30/2024 ActiveStart: 12-09-2023 End: 63-34-6280nkjn 1 tablet by mouth every six hours for paintraMADol (Ultram) 50 MG tablet Indications: Nephrolithiasis Take 1 tablet (50 mg) by mouth every 6 (six) hours if needed for severe pain for up to 10 days 30 tablet 12/09/2023 12/19/2023 ActiveStart: 11-21-2023 End: 78-38-7477dfia 1 tablet by mouth every six hours for paintraMADol (Ultram) 50 MG tablet Indications: Nephrolithiasis Take 1 tablet (50 mg) by mouth every 6 (six) hours if needed for severe pain for up to 10 days 30 tablet 11/21/2023 12/01/2023 ActivevalACYclovir 1000 mg oral tablet (4 sources)Herpesvirus Nucleoside Analog DNA Polymerase Inhibitor, Herpes Simplex Virus Nucleoside Analog DNA Polymerase Inhibitor, Herpes Zoster Virus Nucleoside Analog DNA Polymerase InhibitorStart: 12-24-2024 End: 93-88-8504duqz 1 tablet by mouth every eight hoursvalACYclovir (Valtrex) 1 g tablet Indications: Herpes zoster without complication Take 1 tablet (1,000 mg) by mouth every 8 (eight) hours for 7 days 21 tablet 12/24/2024 12/31/2024 ActiveStart: 10-31-2023 End: 61-44-8082glkm 1 tablet by mouth in the morning, then take 1 tablet by mouth in the evening, then take 1 tablet by mouth at bedtimevalACYclovir (Valtrex) 1 g tablet Indications: Herpes zoster without complication Take 1 tablet (1,000 mg) by mouth in the morning and 1 tablet (1,000 mg) in the evening and 1 tablet (1,000 mg) before bedtime. Do all this for 7 days. 21 tablet 10/31/2023 11/07/2023 Lnjhax09 hr venlafaxine 37.5 mg extended release oral capsule (20 sources)Serotonin and Norepinephrine Reuptake InhibitorStart: 11-13-2024 End: 73-00-5091weyo 1 capsule by mouth once dailyvenlafaxine XR (Effexor XR) 37.5 MG 24 hr capsule Indications: Generalized anxiety disorder Take 1 capsule (37.5 mg) by mouth Daily 30 capsule 5 11/13/2024 01/17/2025 Discontinued (Ineffective)Start: 06-01-2024 End: 59-94-8257wxdt 1 capsule by mouth once dailyvenlafaxine XR (Effexor XR) 75 MG 24 hr capsule Indications: Generalized anxiety disorder Take 1 capsule by mouth once daily 30 capsule 11 06/01/2024 11/13/2024 Discontinued (Reorder) Start: 76-34-9282mwkk 1 capsule by mouth once dailyvenlafaxine XR (Effexor XR) 75 MG 24 hr capsule Indications: Generalized anxiety disorder (CMS/HCC)Take 1 capsule by mouth once daily 30 capsule 04/30/2024 ActiveStart: 83-79-8952luym 1 capsule by mouth once dailyvenlafaxine XR (Effexor XR) 75 MG 24 hr capsule Indications: Generalized anxiety disorder (CMS/HCC)Take 1 capsule (75 mg) by mouth Daily 30 capsule 04/02/2024 ActiveStart: 02-08-2024 End: 54-13-6700fjox 1 capsule by mouth once dailyvenlafaxine XR (Effexor XR) 75 MG 24 hr capsule Indications: Generalized anxiety disorder (CMS/HCC)Take 1 capsule (75 mg) by mouth Daily 02/08/2024 03/31/2024 Discontinued (Reorder) Start: 12-14-2022 End: 77-92-4327gujf 1 capsule by mouth once dailyvenlafaxine XR (Effexor XR) 37.5 MG 24 hr capsule Indications: Rosacea Take 1 capsule (37.5 mg) by mouth Daily 90 capsule 2 06/14/2023 02/08/2024 Discontinued (Reorder)Start: 01-08-2022 End: 57-66-4074xvsv 1 capsule by mouth once dailyvenlafaxine (EFFEXOR XR) 37.5 MG ER capsule Take 1 Capsule by mouth daily. 90 Capsule 3 01/08/2022 Active Completed/Discontinued Medications MedicationDrug Class(es)DatesSig (Normalized)Sig (Original)busPIRone hydrochloride 10 mg oral tablet (20 sources)Start: 02-08-2024 End: 18-49-1631ctcp 1 tablet by mouth twice daily as needed for anxietybusPIRone (Buspar) 10 MG tablet Indications: Generalized anxiety disorder (CMS/HCC) Take 1 tablet (10 mg) by mouth 2 (two) times a day as needed (Anxiety) 60 tablet 2 02/08/2024 04/24/2024 Discontinued (Ineffective)cyclobenzaprine hydrochloride 10 mg oral tablet (20 sources)Muscle RelaxantStart: 11-17-2023 End: 39-95-1841fwet 1 tablet by mouth in the morning, then take 1 tablet by mouth in the evening, then take 1 tablet by mouth at bedtimecyclobenzaprine (Flexeril) 10 MG tablet Indications: Muscle spasm Take 1 tablet (10 mg) by mouth inthe morning and 1 tablet (10 mg) in the evening and 1 tablet (10 mg) before bedtime. Do all this for 20 days. 30 tablet 1 11/17/2023 12/24/2024 Discontinued (Therapy completed)Start: 09-56-2781unpd 1 tablet by mouth in the morning, then take 1 tablet by mouth in the evening, then take 1 tablet by mouth at bedtime cyclobenzaprine (Flexeril) 10 MG tablet Indications: Muscle spasm Take 1 tablet (10 mg) by mouth inthe morning and 1 tablet (10 mg) in the evening and 1 tablet (10 mg) before bedtime. Do all this for 20 days. 30 tablet 1 04/13/2023 Active diclofenac sodium 75 mg delayed release oral tablet (6 sources)Nonsteroidal Anti-inflammatory DrugStart: 01-12-2023 End: 00-49-4554tvxh 1 tablet by mouth twice daily as neededdiclofenac (Voltaren) 75 MG EC tablet Take 75 mg by mouth 2 (two) times a day as needed 01/12/2023 0 11/22/2023 Discontinuedgabapentin 300 mg oral capsule (6 sources)Anti-epileptic AgentStart: 04-13-2023 End: 43-38-5164nafp 1 capsule by mouth in the morninggabapentin (Neurontin) 300 MG capsule Indications: Herpes zoster without complication Take 1 capsule (300 mg) by mouth in the morning and 1 capsule (300 mg) before bedtime. 60 capsule 2 04/13/2023 11/22/2023 Discontinuedlisdexamfetamine dimesylate 30 mg oral capsule (13 sources)Central Nervous System StimulantStart: 06-11-2024 End: 25-05-5708ahqc 1 capsule by mouth in the morninglisdexamfetamine (Vyvanse) 30 MG capsule Indications: Attention or concentration deficit , Binge eating Take 1 capsule (30 mg) by mouth in the morning. 30 capsule 06/11/2024 06/12/2024 Discontinued (Side effects)Start: 04-24-2024 End: 12-71-2137viqu 1 capsule by mouth in the morninglisdexamfetamine (Vyvanse) 20 MG capsule Indications: Attention or concentration deficit , Binge eating Take 1 capsule (20 mg) by mouth in the morning. 30 capsule 04/24/2024 05/24/2024 Activenystatin 464249 unt/ml oral suspension (20 sources)Polyene AntifungalStart: 03-21-2023 End: 07-06-4023pkfxnayb (Mycostatin) 631510 UNIT/ML suspension 03/21/2023 04/24/2024 Discontinued (Therapy completed)ondansetron 4 mg oral tablet (20 sources)Serotonin-3 Receptor AntagonistStart: 11-18-2023 End: 11-55-6850bdkl 1 tablet by mouth every eight hours for nauseaondansetron (Zofran) 4 MG tablet Indications: Nephrolithiasis Take 1 tablet (4 mg) by mouth every 8(eight) hours if needed for nausea 20 tablet 11/21/2023 06/12/2024 Discontinued (Other)1 ml triamcinolone acetonide 40 mg/ml prefilled syringe (4 sources)CorticosteroidStart: 01-17-2025 End: 61-28-2562vopkdybmiarow acetonide (Kenalog-40) injection 40 mgStart: 01-17-2025 End: 64-88-5627vudfnw 40 mg by intramuscular injection once40 mg, Intramuscular, Once, On Tue01/17/25 at 0915, For 1 dose Problems Active Problems Problem ClassificationProblemDateDocumented DateEpisodic/ChronicAdjustment disorders (20 sources)Adjustment disorder with mixed anxiety and depressed mood; Translations: [Adjustment disorder with mixed anxiety and depressed mood]Onset: 538349-65-9929PcwyshcKxpbmrmr reactions (2 sources)Urticaria; Translations: [Urticaria, unspecified]37-08-1121Sodydwrb Anxiety disorders (20 sources)Generalized anxiety disorder; Translations: [Generalized anxiety disorder]Onset: 448997-80-7755ZbsxgvpLwvegp (20 sources)Asthma; Translations: [Unspecified asthma, uncomplicated]Onset: 226326-00-8993LyvvqcoHxdlokroh-waghawb, conduct, and disruptive behavior disorders (2 sources)Attention deficit hyperactivity disorder, predominantly inattentive type; Translations: [Other specified behavioral and emotional disorders with onset usually occurring in childhood and adolescence]24-45-3754KmdlibvTtcldgtf of urinary tract (5 sources)Kidney stone; Translations: [Calculus of kidney]48-06-0315Cinbvkeg Complications of surgical procedures or medical care (20 sources)Postablative hypothyroidism; Translations: [Postprocedural hypothyroidism]Onset: 351344-22-5961MunrnzwNxuzpppuk hypertension (20 sources)Hypertensive disorder; Translations: [Essential (primary) hypertension]Onset: 825048-37-1771VwobrgpJagzbdbktjpju and screening for infectious disease (2 sources)Exposure to sexually transmissible disorder; Translations: [Contact with and (suspected) exposure to infections with a predominantly sexual mode of transmission]37-85-0802OwbvatspRypoy inflammatory condition of skin (20 sources)Rosacea; Translations: [Rosacea, unspecified]Onset: 03-08-2023 25-57-6728AcfwukpNnjjm nervous system disorders (2 sources)Poor concentration; Translations: [Attention and concentration deficit]86-12-2075NdtgndkMfjlk nervous system disorders (20 sources)Disturbance of attention; Translations: [Attention and concentration deficit]Onset: 443867-17-9534BghlttqXacjs nervous system disorders (20 sources)Chronic pain; Translations: [Other chronic pain]Onset: 04-24-2024 78-54-3435FcdsepiKqdfn nutritional; endocrine; and metabolic disorders (20 sources)Severe obesity; Translations: [Class 3 severe obesity due to excess calories with serious comorbidity and body mass index (BMI) of 45.0 to 49.9 in adult ([facility])]Onset: 459189-57-7726KllgndrEdjqh nutritional; endocrine; and metabolic disorders (3 sources)Polyphagia; Translations: [Polyphagia]11-11-1935JelchaiiPfqem skin disorders (4 sources)Inflammatory dermatosis; Translations: [Dermatitis, unspecified] 10-46-9019IkapesqbExkek upper respiratory infections (1 source)Acute upper respiratory infection, unspecified; Translations: [ACUTE UP RESPIRATORY INFECTION UNS]Onset: 56-04-4105RovgyxxnOuysfmxjh and history of mental health and substance abuse codes (1 source)Personal history of nicotine dependence; Translations: [PERSONAL HISTORY OF NICOTINE DEPEND]Onset: 76-35-3685EirzzixlNqoqnqksowqp (2 sources)COUGH, UNSPECIFIED; Translations: [COUGH, UNSPECIFIED]Onset: 84-47-2547Qjkrengdtwzh (1 source)PERSONAL HISTORY OF COVID-19; Translations: [PERSONAL HISTORY OF COVID-19]Onset: 23-50-0000Iznztpvebwsu (4 sources)Patient encounter mjshxu61-43-8113 Past or Other Problems Problem ClassificationProblemDateDocumented DateEpisodic/ChronicAbdominal pain (20 sources)Right upper quadrant pain; Translations: [Right upper quadrant pain] Onset: 10-15-2015 Resolved: 709457-14-4863SsiomhbzYisjzul disorders (20 sources)Irritability and anger; Translations: [Irritability and anger]Onset: 334199-10-8646UurkinukSjkxjphy mellitus without complication (20 sources)Impaired fasting glycemia; Translations: [Impaired fasting glucose] Onset: 174128-81-6404FzljexrtDajdz connective tissue disease (20 sources)Plantar fasciitis; Translations: [Plantar fascial fibromatosis] Onset: 689022-42-6974OcsizufeSbewu connective tissue disease (20 sources)Pain of bilateral hands; Translations: [Pain in right hand]Onset: 121818-14-0946ZjfyewvxTaurw infections; including parasitic (17 sources)Personal history of other infectious and parasitic diseases; Translations: [History of COVID-19]Onset: 679245-48-4887MkgmfwyxBmtua inflammatory condition of skin (20 sources)Seborrheic dermatitis; Translations: [Other seborrheic dermatitis] Onset: 897441-62-2648OxtocskuKrlnz liver diseases (20 sources)ALT (SGPT) level raised; Translations: [Elevated ALT measurement] Onset: 051274-95-4323MxxbgxoyPpawf nervous system disorders (20 sources)Bilateral carpal tunnel syndrome; Translations: [Carpal tunnel syndrome, bilateral upper limbs]Onset: 12-20-2019 Resolved: 112753-03-9335HuppobsZpfwn screening for suspected conditions (not mental disorders or infectious disease) (20 sources)Patient encounter status; Translations: [Encounter for screening mammogram for malignant neoplasm of breast]Onset: 71-44-8189PejvqyugDxqqgecsh; thrombophlebitis and thromboembolism (20 sources)Portal vein thrombosis; Translations: [Portal vein thrombosis]Onset: 939281-17-1197XdgjjbpfYaztlgv disorders (12 sources)Graves' disease; Translations: [Thyrotoxicosis with diffuse goiter without thyrotoxic crisis or storm]Onset: 10-25-2008 Resolved: 961956-18-2315PerpwwwSltkuznnrtfy (1 source)COUGH, UNSPECIFIED; Translations: [COUGH, UNSPECIFIED]Onset: 65-67-2529Ufjzqxmapcgq (2 sources)Cancer cervix screening ekybpg78-55-5248Pguszat tract infections (20 sources)Pyelonephritis; Translations: [Tubulo-interstitial nephritis, not specified as acute or chronic]Onset: 02-08-2024 Resolved: 668531-64-0451GrwtwdqmCaqqp infection (20 sources)Disease caused by 2019-nCoV; Translations: [COVID-19]Onset: 04-10-2021 Resolved: 048625-47-5612Mjnvlzac Results Test NameValueInterpretationReference RangeFacilityHIV 1/2 ANTIGEN/ANTIBODY,FOURTH GENERATION W/RFLon 34-60-0505WQU AG/AB, 4TH GEN Oql-HulcidmdLleddrLWR-ITGPELQOLbswl DiagnosticsComment on above:Performed By: #### [id number] #### [facility] [address] , [address] [place] [address] Blood Bank Specialist: Pantera Gavriia MDMOAngel FINAL INTERPRETATIONNormalQuest DiagnosticsComment on above:Result Comment: HIV Negative HIV-1 antigen and HIV-1/HIV-2 antibodies were not detected. There is no laboratory evidence of HIV infection.Performed By: #### [id number] #### [facility] [address] , [address] [place] [id number] Blood Bank Specialist: Pantera Gaviria MDCBC (INCLUDES DIFF/PLT)on 94-25-7270Xgrwmmvod (Bld) [#/Vol]0.037 10*3/uLNormal0-200Quest DiagnosticsComment on above:Performed By: #### [id number] #### [facility] [address], [address] [place] [address] Blood Bank Specialist: Pantera Gaviria MD #### [id number], [id number] #### [facility] [address] Blood Bank Specialist: Minal UmanaiBasophils/100 WBC (Bld)0.6 %NormalQuest DiagnosticsComment on above:Performed By: #### 7600 #### [facility] [address], [address] [place] [address] Blood Bank Specialist: Pantera Gaviria MD #### [id number], 45373 #### [facility] [address] Blood Bank Specialist: Minal Harry FlatiEosinophils (Bld) [#/Vol]0.143 10*3/uLNormal 15-500Quest DiagnosticsComment on above:Performed By: #### 7600 #### [facility] [address], [address] [place] [address] Blood Bank Specialist: Pantera Gaviria MD #### [id number], [id number] #### [facility] [address] Blood Bank Specialist: Minal Harry FlatiEosinophils/100 WBC (Bld)2.3 %NormalQuest DiagnosticsComment on above:Performed By: #### 7600 #### [facility] [address], [address] [place] [address] Blood Bank Specialist: Pantera Gaviria MD #### [id number], 53178 #### [facility] [address] Blood Bank Specialist: Minal UmanaiErythrocyte distribution width (RBC) [Ratio] 13.5 %Bwknsb22.0-15.0Quest DiagnosticsComment on above:Performed By: #### 7600 #### [facility] [address], [address] [place] [address] Blood Bank Specialist: Pantera Gaviria MD #### [id number], 79437 #### [facility] [address] [place] [address] Blood Bank Specialist: Minal Harry FlatiHematocrit (Bld) [Volume fraction]47.6 %High 35.0-45.0Quest DiagnosticsComment on above:Performed By: #### 7600 #### [facility] [address], [address] [place] [address] Blood Bank Specialist: Pantera Gaviria MD #### [id number], 57182 #### [facility] [address] [place], [place] [address] Blood Bank Specialist: Minal Harry FlatiHemoglobin (Bld) [Mass/Vol]15.7 g/dLHigh 11.7-15.5Quest DiagnosticsComment on above:Performed By: #### 7600 #### [facility] [address], [address] [place] [address] Blood Bank Specialist: Pantera Gaviria MD #### [id number], 48359 #### [facility] [address] [place] [address] Blood Bank Specialist: Minal Harry FlatiLymphocytes (Bld) [#/Vol]2.418 10*3/uLNormal 850-3900Quest DiagnosticsComment on above:Performed By: #### 7600 #### [facility] [address], [address] [place], [place] [address] Blood Bank Specialist: Pantera Gaviria MD #### [id number], [id number] #### [facility] [address] [place] [address] Blood Bank Specialist: Minal Harry FlatiLymphocytes/100 WBC (Bld)39.0 %NormalQuest DiagnosticsComment on above:Performed By: #### 7600 #### [facility] [address], [address] [place] [address] Blood Bank Specialist: Pantera Gaviria MD #### [id number], 26287 #### [facility] Blood Bank Specialist: Minal UmanaiMCH (RBC) [Entitic mass]29.2 hcLsqopt53.0-33.0 [facility] DiagnosticsComment on above:Performed By: #### 7600 #### [facility] [address], [address] [place] [address] Blood Bank Specialist: Pantera Gaviria MD #### [id number], 71545 #### [facility] [address] Blood Bank Specialist: Minal UmanaiMCHC (RBC) [Mass/Vol]33.0 g/vRWwsldq70.0-36.0 [facility] DiagnosticsComment on above:Result Comment: For adults, a slight decrease in the calculated MCHC value (in the range of 30 to 32 g/dL) is most likely not clinically significant; however, it should be interpreted with caution in correlation with other red cell parameters and the patient's clinical condition.Performed By: #### 7600 #### [facility] [address], [address] [place] [address] Blood Bank Specialist: Pantera Gaviria MD #### [id number], 71728 #### [facility] [address] Blood Bank Specialist: Minal UmanaiMCV (RBC) [Entitic vol]88.5 jJIkvrdu27.0-100.0 [facility] DiagnosticsComment on above:Performed By: #### 7600 #### [facility] [address], [address] [place] [address] Blood Bank Specialist: Pantera Gaviria MD #### [id number], 55164 #### [facility] [address] Blood Bank Specialist: Minal R FlatiMonocytes (Bld) [#/Vol]0.502 10*3/uLNormal 200-950Quest DiagnosticsComment on above:Performed By: #### 7600 #### [facility] [address], [address] [place] [address] Blood Bank Specialist: Pantera Gaviria MD #### [id number], [id number] #### [facility] [address] [place] [address] Blood Bank Specialist: Minal Harry FlatiMonocytes/100 WBC (Bld)8.1 %NormalQuest DiagnosticsComment on above:Performed By: #### 7600 #### [facility] [address], [address] [place] [address] Blood Bank Specialist: Pantera Gaviria MD #### [id number], 35647 #### [facility] [address] Blood Bank Specialist: Minal Harry FlatiNeutrophils (Bld) [#/Vol]3.1 10*3/uLNormal 1500-7800Quest DiagnosticsComment on above:Performed By: #### 7600 #### [facility] [address], [address] [place] [address] Blood Bank Specialist: Pantera Gaviria MD #### [id number], 09695 #### [facility] [address] [place] [address] Blood Bank Specialist: Minal Harry FlatiNeutrophils/100 WBC (Bld)50.0 %NormalQuest DiagnosticsComment on above:Performed By: #### 7600 #### [facility] [address], [address] [place] [address] Blood Bank Specialist: Pantera Gaviria MD #### [id number], 38906 #### [facility] [address] [place], [place] [address] Blood Bank Specialist: Minal Harry FlatiPlatelet mean volume (Bld) [Entitic vol]9.6 fL Normal7.5-12.5Quest DiagnosticsComment on above:Performed By: #### 7600 #### [facility] [address], [address] [place] [address] Blood Bank Specialist: Pantera Gaviria MD #### [id number], 70040 #### [facility] [address] [place] [address] Blood Bank Specialist: Minal UmanaiPlatelets (Bld) [#/Vol]285 10*3/uLNormal 140-400Quest DiagnosticsComment on above:Performed By: #### 7600 #### [facility] [address] , [address] [place] [address] Blood Bank Specialist: Pantera Gaviria MD #### [id number], 07586 #### [place] [address] Blood Bank Specialist: Minal UmanaiRBC (Bld) [#/Vol]5.38 10*6/uLHigh3.80-5.10 [facility] DiagnosticsComment on above:Performed By: #### 7600 #### [facility] [place] [address], [address] [place] [address] Blood Bank Specialist: Pantera Gaviria MD #### [id number], 11255 #### [place] [address] Blood Bank Specialist: Minal UmanaiWBC (Bld) [#/Vol]6.2 10*3/uLNormal3.8-10.8 [facility]osticsComment on above:Performed By: #### 7600 #### [facility] [address] , [address] [place] [address] Blood Bank Specialist: Pantera Gaviria MD #### [id number], 26542 #### [place] [address] Blood Bank Specialist: Minal UmanaiCOMPREHENSIVE METABOLIC PANELon 10-02-2024 Albumin [Mass/Vol]4.6 g/dLNormal3.6-5.1Quest DiagnosticsComment on above: Performed By: #### 7600 #### [facility] of [address], [address] [place] [address] Blood Bank Specialist: Pantera Gaviria MD #### [id number], 30861 #### [facility] [address] [place], [place] [address] Blood Bank Specialist: Minal Harry FlatiAlbumin/Globulin [Mass ratio]1.8 {ratio}Normal 1.0-2.5Quest DiagnosticsComment on above:Performed By: #### 7600 #### [facility] of [address], [address] [place] [address] Blood Bank Specialist: Pantera Gaviria MD #### [id number], 47610 #### [facility] Blood Bank Specialist: Minal Harry FlatiALP [Catalytic activity/Vol]67 U/LBeemnx98-672 [facility] DiagnosticsComment on above:Performed By: #### 7600 #### [facility] of [address], [address] [place] [address] Blood Bank Specialist: Pantera Gaviria MD #### 6399, 36210 #### [facility] [address] [place] [address] Blood Bank Specialist: Minal Harry FlatiALT [Catalytic activity/Vol]20 U/LNormal6-29 [facility] DiagnosticsComment on above:Performed By: #### 7600 #### [facility] [place] [address] [address] , [address] [place] [address] Blood Bank Specialist: Pantera Gaviria MD #### [id number], 09941 #### [facility] [address] [place], [place] [address] Blood Bank Specialist: Minal Harry FlatiAST [Catalytic activity/Vol]15 U/GFxysai05-88 [facility]osticsComment on above:Performed By: #### 7600 #### [facility] [place] [address] [address] , [address] [place] [address] Blood Bank Specialist: Pantera Gvairia MD #### 6399, 50914 #### [facility] [address] [place], [place] [address] Blood Bank Specialist: Minal Harry FlatiBilirubin [Mass/Vol]0.6 mg/dLNormal0.2-1.2 [facility] DiagnosticsComment on above:Performed By: #### 7600 #### [facility] [address], [address] [place] [address] Blood Bank Specialist: Pantera Gaviria MD #### 6399, 76078 #### [facility] [address] [place], [place] [phone] Blood Bank Specialist: Minal UmanaiBUN/CREATININE RATIOSEE NOTE:Normal6-22Quest DiagnosticsComment on above:Result Comment: Not Reported: BUN and Creatinine are within reference range.Performed By: #### 7600 #### [facility] [address], [address] [place] [address] Blood Bank Specialist: Pantera Gaviria MD #### 6399, 10887 #### [facility] [address] [place], [place] [address] Blood Bank Specialist: Minal Harry FlatiCalcium [Mass/Vol]9.7 mg/dLNormal8.6-10.2Quest DiagnosticsComment on above:Performed By: #### 7600 #### [facility] [address], [address] [place] [address] Blood Bank Specialist: Pantera Gaviria MD #### 6399, 59910 #### [facility] [address] [place] [phone] Blood Bank Specialist: Minal Harry FlatiChloride [Moles/Vol]104 mmol/GJpkkob96-661 [facility]osticsComment on above:Performed By: #### 7600 #### [facility] [address], [address] [place] [address] Blood Bank Specialist: Pantera Gaviria MD #### 6399, 55130 #### [facility] [address] [place], [place] [address] Blood Bank Specialist: Minal Harry FlatiCO2 [Moles/Vol]30 mmol/QGgbgjl90-46Nzbki DiagnosticsComment on above:Performed By: #### 7600 #### [facility] [address], [address] [place] [address] Blood Bank Specialist: Pantera Gaviria MD #### 6399, 63359 #### [facility] [address] [place], [place] [address] Blood Bank Specialist: Minal Harry FlatiCreatinine [Mass/Vol]0.73 mg/dLNormal0.50-0.99 [facility] DiagnosticsComment on above:Performed By: #### 7600 #### [facility] [address], [address] [place] [address] Blood Bank Specialist: Pantera Gaviria MD #### 6399, 28953 #### [facility] [address] Blood Bank Specialist: Minal UmanaiGFR/1.73 sq M.predicted among non-blacks MDRD (S/P/Bld) [Vol rate/Area]102 mL/min/{1.73_m2}Normal> OR = 60[facility] Comment on above:Performed By: #### 7600 #### [facility] [address], [address] [place] [address] Blood Bank Specialist: Pantera Gaviria MD #### 6399, 97025 #### [facility] Blood Bank Specialist: Minal Harry FlatiGlobulin (S) [Mass/Vol]2.5 g/dLNormal1.9-3.7 [facility] DiagnosticsComment on above:Performed By: #### 7600 #### [facility] [address], [address] [place] [address] Blood Bank Specialist: Pantera Gaviria MD #### 6399, 85178 #### [facility] Blood Bank Specialist: Minal Harry FlatiGlucose [Mass/Vol]93 mg/tJWsqudk16-47Rfqey DiagnosticsComment on above:Result Comment: Fasting reference intervalPerformed By: #### 7600 #### [facility] [address], [address] [place] [address] Blood Bank Specialist: Pantera Gaviria MD #### 6399, 94338 #### [facility] [address] Blood Bank Specialist: Minal Harry FlatiPotassium [Moles/Vol]3.9 mmol/LNormal3.5-5.3 [facility]osticsComment on above:Performed By: #### 7600 #### [facility] [address], [address] [place] [address] Blood Bank Specialist: Pantera Gaviria MD #### 6399, 02363 #### [facility] [address] [place] [address] Blood Bank Specialist: Minal Harry FlatiProtein [Mass/Vol]7.1 g/dLNormal6.1-8.1Quest DiagnosticsComment on above:Performed By: #### 7600 #### [facility] [address], [address] [place] [address] Blood Bank Specialist: Pantera Gaviria MD #### 6399, 02770 #### [facility] [address] Blood Bank Specialist: Minal Harry FlatiSodium [Moles/Vol]142 mmol/MUzavic726-636Nfnom DiagnosticsComment on above:Performed By: #### 7600 #### [facility] [address], [address] [place] [address] Blood Bank Specialist: Pantera Gaviria MD #### 6399, 77681 #### [facility] [address] Blood Bank Specialist: Minal Harry FlatiUrea nitrogen [Mass/Vol]17 mg/dLNormal7-25 [facility] DiagnosticsComment on above:Performed By: #### 7600 #### [facility] [address], [address] [place], [place] [address] Blood Bank Specialist: Pantera Gaviria MD #### 6399, 43567 #### [facility] [address] [place] [address] Blood Bank Specialist: Minal UmanaiHEMOGLOBIN A1con 07-41-3685TpB9u (Bld) [Mass fraction]5.7 %High<5.7Quest DiagnosticsComment on above:Result Comment: For someone without known diabetes, a hemoglobin A1c value between 5.7% and 6.4% is consistent with prediabetes and should be confirmed with a follow-up test. For someone with known diabetes, a value <7% indicates that their diabetes is well controlled. A1c targets should be individualized based on duration of diabetes, age, comorbid conditions, and other considerations. This assay result is consistent with an increased risk of diabetes. Currently, no consensus exists regarding use of hemoglobin A1c for diagnosis of diabetes for children.Performed By: #### 7600 #### [facility] [address], [address] [place], [place] [address] Blood Bank Specialist: Pantera Gaviria MD #### 6399, 92973 #### [facility] [address] [place] [address] Blood Bank Specialist: Minal UmanaiLIPID PANEL, STANDARDon 94-31-8720Doqbhcnbjvo [Mass/Vol]202 mg/dLHigh<200Quest DiagnosticsComment on above:Order Comment: FASTING:YES FASTING: YESPerformed By: #### 7600 #### [facility] [address], [address] [place], [place] [address] Blood Bank Specialist: Pantera Gaviria MD #### 6399, 80686 #### [facility] [address] [place] [address] Blood Bank Specialist: Minal UmanaiCholesterol in HDL [Mass/Vol]47 mg/dLLow> OR = 50Quest DiagnosticsComment on above:Order Comment: FASTING:YES FASTING: YESPerformed By: #### 7600 #### [facility] [address] [facility], [address] Blood Bank Specialist: Pantera Gaviria MD #### 6399, 57486 #### [facility] [address] [place] [address] Blood Bank Specialist: Minal UmanaiCholesterol in LDL [Mass/Vol]130 mg/dLHigh [facility] DiagnosticsComment on above:Order Comment: FASTING:YES FASTING: YESResult Comment: Reference range: <100 Desirable range <100 mg/dL for primary prevention; <70 mg/dL for patients with CHD or diabetic patients with > or = 2 CHD risk factors. LDL-C is now calculated using the Rhonda calculation, which is a validated novel method providing better accuracy than the Friedewald equation in the estimation of LDL-C. Anjum SS et al. LEONID. 2013;310(19): 5288-5930 (http://education.[employer]/faq/KVS994)Performed By: #### 7600 #### [facility] [address], [address] [place], [place] [address] Blood Bank Specialist: Pantera Gaviria MD #### 6399, 52774 #### [facility] [address] [place] [address] Blood Bank Specialist: Minal UmanaiCholesterol.total/Cholesterol in HDL [Mass ratio]4.3 {ratio}Normal<5.0Quest DiagnosticsComment on above:Order Comment: FASTING:YES FASTING: YESPerformed By: #### 7600 #### [facility] [address] [facility], [address] [place] [address] Blood Bank Specialist: Pantera Gaviria MD #### 6399, 80828 #### [facility] [address] [place] [address] Blood Bank Specialist: Minal UmanaiNON HDL CZQJGBJCUOV376 mg/dL (calc)High<130 [facility] DiagnosticsComment on above:Order Comment: FASTING:YES FASTING: YESResult Comment: For patients with diabetes plus 1 major ASCVD risk factor, treating to a non-HDL-C goal of <100 mg/dL (LDL-C of <70 mg/dL) is considered a therapeutic option.Performed By: #### 7600 #### [facility] [address], [address] [place] [address] Blood Bank Specialist: Pantera Gaviria MD #### 6399, 94763 #### [facility] [address] [place] [address] Blood Bank Specialist: Minal UmanaiTriglyceride [Mass/Vol]134 mg/dLNormal<150 [facility] DiagnosticsComment on above:Order Comment: FASTING:YES FASTING: YESPerformed By: #### 7600 #### [facility] [address], [address] [place] [address] Blood Bank Specialist: Pantera Gaviria MD #### 6399, 19710 #### [facility] [address] [place] [address] Blood Bank Specialist: Minal UmanaiTSH W/REFLEX TO FT4on 56-94-5603OWI W/REFLEX TO FT40.94 mIU/LNormalQuest DiagnosticsComment on above:Result Comment: Reference Range > or = 20 Years 0.40-4.50 Ranges First trimester 0.26-2.66 Second trimester 0.55-2.73 Third trimester 0.43-2.91Performed By: #### 19563 #### [facility] [address], [address] [place] [address] Blood Bank Specialist: Pantera Gaviria MDUrinalysis macro (dipstick) panel (U)on 44-61-8701Dtzslvvhr, UANegativeNegative - 4(70) +++ mg/dLNOMS HealthcareBlood, UAPositiveNegative - 50 Khanh/mcLNOMS HealthcareComment on above:Trace, Non-hemolyzedClarity, UACloudyNOMS HealthcareColor, UALight YellowNOMS HealthcareGlucose, UANegativeNegative - 2000(110) ++++ mg/dLNOMS Healthcare Interpretation and review of laboratory resultsAbnormalNOIA HealthcareKetones, UANegativeNegative - 160(16) ++++ mg/dLJohn J. Pershing VA Medical CenterLeukocytes, UA3+Negative - 500+++ Troy/mcLNOSSM Health Cardinal Glennon Children's HospitalNitrite, UANegativeNegative - PositiveNOIA HealthcarepH, UA6.05 - 9NOIA HealthcareProtein, UANegativeNegative - 2000(20) ++++ mg/dLTIMPANOGOS REGIONAL HOSPITAL HealthcareSpec Grav, UA1.0151 - 1.03NOIA HealthcareUrobilinogen, UA0.20.2 - 12 mg/dLRay County Memorial Hospital HealthcareAlanine aminotransferase [Enzymatic activity/volume] in Serum or PlasmaOrdered By: Suze Gonzalez on 24-66-1267KTJ [Catalytic activity/Vol]27 U/L7-52Prem[facility] Atrium Medical CenterAlbumin [Mass/volume] in Serum or Plasma by Bromocresol green (BCG) dye binding methoOrdered By: Suze Gonzalez on 78-56-8266Qktefqb BCG dye [Mass/Vol] 4.5 g/dL3.5-5.7FMiddletown HospitalAlkaline phosphatase [Enzymatic activity/volume] in Serum or PlasmaOrdered By: Suze Gonzalez on 86-38-4533PEY [Catalytic activity/Vol]55 U/P66-523IrhxlhqagPremier Health Atrium Medical CenterAspartate aminotransferase [Enzymatic activity/volume] in Serum or PlasmaOrdered By: Suze Gonzalez on 07-65-2360HOJ [Catalytic activity/Vol]20 U/T11-42LyauxrcivPremier Health Atrium Medical CenterBacteria [Presence] in Urine by AutomatedOrdered By: Suze Gonzalez on 16-15-5241Tiujvsdq Auto Ql (U)Rare [HPF]None SeenPremier Health Atrium Medical CenterBasophils Auto (Bld) [#/Vol]Ordered By: Suze Gonzalez on 30-20-8669Lkcifduft (Bld) [#/Vol]0.1 10*3/uL0.0-0.2FMiddletown HospitalBasophils/100 WBC Auto (Bld)Ordered By: Suze Gonzalez on 11-18-2023 Basophils/100 WBC (Bld)1.0 %.[facility] Medical CenterBilirubin Test strip Ql (U)Ordered By: Suze Gonzalez on 75-07-8862Tsojpmwle Ql (U)Negative NegativePremier Health Atrium Medical CenterBilirubin.direct [Mass/volume] in Serum or PlasmaOrdered By: Suze Gonzalez on 93-81-8879Nwpppvnxf.direct [Mass/Vol] 0.10 mg/dL0.03-0.18FMiddletown HospitalBilirubin.total [Mass/volume] in Serum or PlasmaOrdered By: Suze Gonzalez on 11-18-2023 Bilirubin [Mass/Vol]0.4 mg/dL0.3-1.0Prem[facility] Medical CenterCalcium [Mass/volume] in Serum or PlasmaOrdered By: Suze oGnzalez on 78-14-7894Flnaqay [Mass/Vol]9.5 mg/dL8.6-10.3FMiddletown HospitalCarbon dioxide, total [Moles/volume] in Serum or PlasmaOrdered By: Suze Gonzalez on 11-18-2023 CO2 [Moles/Vol]29.4 mmol/L21.0-31.0Prem[facility] Medical CenterChloride [Moles/volume] in Serum or PlasmaOrdered By: Suze Gonzalez on 11-18-2023 Chloride [Moles/Vol]103 mmol/R87-612KxxaauyrtPremier Health Atrium Medical CenterColor Auto (U)Ordered By: Suze Gonzalez on 39-12-0792Psupu (U)Light-yellowYellowPremier Health Atrium Medical CenterCreatinine [Mass/volume] in Serum or PlasmaOrdered By: Suze Gonzalez on 19-82-0746Flmyolcncu [Mass/Vol]0.95 mg/dL0.60-1.20[facility] Medical CenterEosinophils Auto (Bld) [#/Vol]Ordered By: Suze Gonzalez on 49-21-2226Lrymikstwoe (Bld) [#/Vol]0.3 10*3/uL0.0-0.45Prem[facility] Medical CenterEosinophils/100 WBC Auto (Bld)Ordered By: Suze Gonzalez on 16-30-5691Pqbzajgcwwb/100 WBC (Bld)3.0 %.[facility] Epithelial cells.squamous [#/area] in Urine sediment by Automated countOrdered By: Suze Gonzalez on 16-91-7219Hlwyaptxcn cells.squamous Auto (Urine sed) [#/Area]1-2 [HPF]0-2FMiddletown HospitalErythrocyte distribution width Auto (RBC) [Ratio]Ordered By: Suze Gonzalez on 54-08-3875Acztisqhgui distribution width (RBC) [Ratio]13.9 %11.9-15.3FMiddletown Hospital Erythrocytes [#/area] in Urine sediment by Automated countOrdered By: Suze Gonzalez on 45-47-2023WMT Auto (Urine sed) [#/Area]1-2 [HPF]0-4FMiddletown HospitalGlobulin Calc (S) [Mass/Vol]Ordered By: Suze Gonzalez on 72-45-2385Rxfylufh (S) [Mass/Vol]2.4 g/dLPremier Health Atrium Medical Center Glucose [Mass/volume] in Serum or PlasmaOrdered By: Suze Gonzalez on 11-18-2023 Glucose [Mass/Vol]114 mg/sUZroc82-831XounylbwaPremier Health Atrium Medical CenterComment on above:ADA recommended reference rangeRandom Glucose Reference Range is dependent on time and content of last meal. Glucose of more than 200 mg/dL in a nonstressed, ambulatory subject supports the diagnosisof Diabetes Mellitus. Glucose [Mass/volume] in Urine by Test stripOrdered By: Suze Gonzalez on 35-04-4685Qgchkjm Test strip (U) [Mass/Vol]Normal mg/dLNormalPremier Health Atrium Medical CenterHCG ( test) IA.rapid Ql (U)Ordered By: Suze Gonzalez on 95-77-7760NMM ( test) Ql (U)NegativePremier Health Atrium Medical Center Hematocrit Auto (Bld) [Volume fraction]Ordered By: Suze Gonzalez on 11-18-2023 Hematocrit (Bld) [Volume fraction]41.8 %34.0-46.4FMiddletown HospitalHemoglobin Test strip Ql (U)Ordered By: Suze Gonzalez on 11-18-2023 Hemoglobin Ql (U)NegativeNegativePremier Health Atrium Medical CenterHemoglobin [Mass/volume] in BloodOrdered By: Suze Gonzalez on 03-99-2127Zvmwjxisds (Bld) [Mass/Vol]14.5 g/dL11.8-15.4FMiddletown HospitalHyaline casts [#/area] in Urine sediment by Automated countOrdered By: Suze Gonzalez on 28-77-9771Bkzeiqy casts Auto (Urine sed) [#/Area]0-8 [LPF]0-8Prem[facility]rium Medical CenterKetones Test strip Ql (U)Ordered By: Suze Gonzalez on 11-18-2023 Ketones Ql (U)NegativeNegativePremier Health Atrium Medical CenterLeukocyte esterase [Presence] in Urine by Test stripOrdered By: Suze Gonzalez on 65-26-1618Xetiuxlmy esterase Test strip Ql (U)3+HighNegativePremier Health Atrium Medical CenterLeukocytes [#/area] in Urine sediment by Automated countOrdered By: Suze Gonzalez on 64-28-5338GOL Auto (Urine sed) [#/Area]10-19 [HPF]High0-4 [facility] Medical CenterLeukocytes [#/volume] corrected for nucleated erythrocytes in Blood by Automated counOrdered By: Suze Gonzalez on 11-18-2023 WBC corrected for nucl RBC Auto (Bld) [#/Vol]8.5 10*3/uL3.8-11.6FMiddletown HospitalLipase [Enzymatic activity/volume] in Serum or Plasma Ordered By: Suze Gonzalze on 40-07-2561Iegllc [Catalytic activity/Vol]49.0 U/L 11.0-82.0[facility] Medical CenterLymphocytes Auto (Bld) [#/Vol]Ordered By: Suze Gonzalez on 20-32-0592Oqcfmouupjq (Bld) [#/Vol]3.5 10*3/uL1.00-4.8 [facility] CenterLymphocytes/100 WBC Auto (Bld)Ordered By: Suze Gonzalez on 01-49-9759Ovdjvhvkzdv/100 WBC (Bld)40.9 %.[facility] Auto (RBC) [Entitic mass]Ordered By: Suze Gonzalez on 22-92-1464TQI (RBC) [Entitic mass]30.1 pg24.7-34.3FThe Surgical Hospital at SouthwoodsHC Auto (RBC) [Mass/Vol]Ordered By: Suze Gonzalez on 24-04-9407YBCF (RBC) [Mass/Vol]34.7 g/dL32.0-35.0[facility] CenterMCV Auto (RBC) [Entitic vol]Ordered By: Suze Gonzalez on 32-44-2965XNV (RBC) [Entitic vol]86.7 pF42-229GlvvcgqbmPremier Health Atrium Medical CenterMonocyte distribution width [Entitic volume] in Blood by AutomatedOrdered By: Suze Gonzalez on 11-18-2023 Monocyte distribution width Auto (Bld) [Entitic vol]18.55 %0.00-20.00[facility] CenterMonocytes Auto (Bld) [#/Vol]Ordered By: Suze Gonzalez on 90-64-0132Jqwttmxre (Bld) [#/Vol]0.7 10*3/uL0.0-0.8[facility] CenterMonocytes/100 WBC Auto (Bld)Ordered By: Suze Gonzalez on 11-18-2023 Monocytes/100 WBC (Bld)8.5 %.[facility] CenterMucus [Presence] in Urine by AutomatedOrdered By: Suze Gonzalez on 06-76-7572Rglzj Auto Ql (U) Rare [LPF][facility] CenterNeutrophils Auto (Bld) [#/Vol]Ordered By: Suze Gonzalez on 92-94-9126Avywhqxrkem (Bld) [#/Vol]4.0 10*3/uL1.8-7.7 [facility] CenterNeutrophils/100 WBC Auto (Bld)Ordered By: Suze Gonzalez on 12-80-8847Gtteqdepmsq/100 WBC (Bld)46.6 %.[facility] CenterNitrite Test strip Ql (U)Ordered By: Suze Gonzalez on 11-18-2023 Nitrite Ql (U)NegativeNegativePremier Health Atrium Medical CenterNo Panel InformationOrdered By: Suze Gonzalez on 05-77-3249Qjfmyseov GFR (CKD-EPI)> 60.0 mL/MinPremier Health Atrium Medical CenterPharmacy Creatinine Clearance (Chem93.06 [facility] CenterNucleated erythrocytes [Presence] in Blood by Automated countOrdered By: Suze Gonzalez on 49-11-1202Dedainbdt RBC Auto Ql (Bld)0.1 /100{WBC}0-0.5FMiddletown HospitalPlatelet mean volume Auto (Bld) [Entitic vol]Ordered By: Suze Gonzalez on 82-10-4093Nszsyguh mean volume (Bld) [Entitic vol]7.7 fL6.3-10.7FMiddletown Hospital Platelets Auto (Bld) [#/Vol]Ordered By: Suze Gonzalez on 22-40-9053Pcscclwax (Bld) [#/Vol]260 10*3/cB556-923XysgmngzfPremier Health Atrium Medical CenterPotassium [Moles/volume] in Serum or PlasmaOrdered By: Suze Gonzalez on 11-18-2023 Potassium [Moles/Vol]3.7 mmol/L3.5-5.1FMiddletown HospitalProtein Test strip (U) [Mass/Vol]Ordered By: Suze Gonzalez on 45-94-2907Jvwvfzj (U) [Mass/Vol]NegativeNegativePremier Health Atrium Medical CenterProtein [Mass/volume] in Serum or PlasmaOrdered By: Suze Gonzalez on 21-33-3181Qlsdqdz [Mass/Vol]6.9 g/dL6.4-8.9[facility] Medical CenterRBC Auto (Bld) [#/Vol]Ordered By: Suze Gonzalez on 05-03-8969LAM (Bld) [#/Vol]4.82 10*6/uL3.60-5.00The Christ Hospitalerum or plasma albumin/globulin mass ratioOrdered By: Suze Gonzalez on 80-78-3434Aefnczg/Globulin [Mass ratio]1.9 {ratio}[facility] Hospitalerum or plasma anion gap determinationOrdered By: Suze Gonzalez on 40-06-9069Kivrw gap [Moles/Vol]9.3 mmol/L6.0-15.0[facility] Hospitalerum or plasma non-glucuronidated bilirubin measurement (mass/volume)Ordered By: Suze Gonzalez on 71-53-3442Wckuuueto.indirect [Mass/Vol]0.3 mg/dLThe Christ Hospitalodium [Moles/volume] in Serum or PlasmaOrdered By: Suze Gonzalez on 71-37-4236Yaohew [Moles/Vol]138 mmol/A073-414DjrvcfqvxThe Christ Hospitalpecific gravity Test strip (U) [Rel density]Ordered By: Suze Gonzalez on 35-83-4447Drlbycix gravity (U) [Rel density]1.0201.001-1.030[facility] Medical CenterUrea nitrogen [Mass/volume] in Serum or PlasmaOrdered By: Suze Gonzalez on 78-41-1102Jdib nitrogen [Mass/Vol]19 mg/dL7-25Prem[facility] Medical CenterUrine appearance Ordered By: Suze Gonzalez on 67-51-6828Retqncalft (U)ClearClearFMiddletown HospitalUrobilinogen Test strip (U) [Mass/Vol]Ordered By: Suze Gonzalez on 09-49-4171Idcjtdwspcis (U) [Mass/Vol]Normal mg/dLNormalPremier Health Atrium Medical CenterWBC Auto (Bld) [#/Vol]Ordered By: Suze Gonzalez on 95-83-0684TGN (Bld) [#/Vol]8.5 10*3/uL3.8-11.6FMiddletown Hospital pH Test strip (U)Ordered By: Suze Gonzalez on 89-47-8129vO (U)5.5 [pH]5.0-9.0 [facility] Medical CenterTelephone Encounteron [phone] Authentication Interface Message TextRequested Prescriptions Pending Prescriptions Disp Refills triamterene-hydrochlorothiazide (DYAZIDE) 37.5-25 MG per capsule [Pharmacy Med Name: Triamterene-HCTZ 37.5-25 MG Oral Capsule] 90 Capsule 0 Sig: TAKE 1 CAPSULE BY MOUTH EVERY MORNING Last visit with PCP (KADI MORENO) was 07/07/2022 No future appointment with PCP (KADI MORENO)NormalUniversity Hospitals Conneaut Medical CenterSocialthing System Telephone Encounteron [phone] Authentication Interface Message TextRequested Prescriptions Pending Prescriptions Disp Refills triamterene-hydrochlorothiazide (DYAZIDE) 37.5-25 MG per capsule 90 Capsule 3 Sig: Take 1 Capsule by mouth every morning. venlafaxine (EFFEXOR XR) 37.5 MG ER capsule 90 Capsule 3 Sig: Take 1 Capsule by mouth daily. Last visit with PCP (KADI MORENO) was 07/07/2022 No future appointment with PCP (KADI MORENO)[facility] [employer] Patient Instructionson [phone] Authentication Interface Message TextCall [phone] to reach the office of Dr. Chong and Karley Orta PA-C. To reach Lucille Adams RN, Hand and Upper Extremity Surgery Nurse Coordinator, please send a [employer] message to your provider and address it to Lucille. She monitors the [employer] messages regularly. If you have been offered surgery, you can expect to be contacted by the office in the near future at your provided phone number to schedule surgery at your convenience. Please contact the office to update your contact information if needed. Your Preop Exam (PSE) or PSE phone call will be scheduled by the audio visual secretary when you schedule surgery. Please do no miss your PSE exam or phone call. The day prior to surgery, you will receive a phone call from the operating room with your expected surgery time and arrival time. If you were referred to therapy call [phone] to schedule your therapy (both PT and OT). Their office relies on you calling them to schedule. If you were referred for an EMG call [phone] to schedule your EMG. Their office relies on you calling them to schedule. Once scheduled, please call our office to schedule your follow up appointment for two weeks afterwards to review your study with your surgeon. If you were referred for an MRI/CT scan or diagnostic ultrasound, please call [phone] to schedule your study. Be sure to ask for the [facility] HospitalContextbrokera scheduling if there is a long delay in availability. Radiology relies on you calling them to schedule. If you received a steroid injection today, it can take several days to take effect. Please be patient. If you are diabetic, please monitor your blood sugar for a transient elevation over the next few days from the injection. If you have diagnosed with a fragility fracture, such as a wrist or shoulder fracture, please contact your primary care provider regarding medical management of osteoporosis. For specific questions regarding your bill, please contact Medical Billing at [phone]. Additional information on your condition may be found online at [email or web address] Memorial Hospitale [facility] HospitalSocialthing SystemProgress Noteson 08-24-2022 Jailer/Training Officer Authentication Interface Message TextTeaching Physician Note: I saw and evaluated the patient. I personally obtained the quezada and critical portions of the history and physical exam. I reviewed the resident's documentation and discussed the patient with the resident. I agree with the resident's medical decision making as documented in the resident's note. Ruslan Chong MD I am concerned that her job may be too hard on her hands. We discussed this. NormalThe [employer] SystemTranscription Authentication Interface Message Text Patient was identified by name and date of . Max Jefferson Patient at risk for falls:No Falls Risk protocol implemented: NoNormalThe [employer] SystemProgress Noteson [id number] Authentication Interface Message [id number] FMLA/JAVAD received via External [facility] [employer] fax queue. Forwarding to provider for review/signature/faxing. Route to p correspondence for revisions. When approved, forms weill automatically be faxed to [facility] at [phone] [employer] Progress Noteson [id number] Authentication Interface Message Text Breast imaging reviewed by radiologist. Impression/Recommendation: MAMMOGRAM FINDINGS: The breast tissue is heterogeneously dense, which may obscure detection of small masses. There is a mass in the lower inner quadrant of the left breast at posterior depth. No suspicious masses, calcifications or other abnormalities are seen in the right breast. IMPRESSION: Mass in the left breast requires additional evaluation. A diagnostic left breast ultrasound exam ([id number]) is recommended. There is no evidence of malignancy in the right breast. Orders placed per radiologist recommendations. Patient will be contacted to schedule appropriate appointments. Erika Bazzi RN Breast Piercing Artist/Navigator [phone] Voodle - Memories in MotionDBT Breast - bilateral screeningOrdered By: Pamella Stapleton on 30-78-0874Aonnwu DensityThe breast tissue is heterogeneously dense, which may obscure detection of small masses.[employer] Work Phone: Estimated lifetime Breast Cancer riskAverage (less than 15%, as per the Tyrer-Cuzick/BRISA model)[employer] Work Phone: [employer] Work Phone: DBT Breast - bilateral screeningon 42-22-5043SAGO: BILATERAL SCREENING MAMMOGRAM W/TOMOSYNTHESIS AND CAD CLINICAL HISTORY: Patient is 46 years old and is seen for screening. The patient has no personal history of cancer. The patient has no family history of breast cancer. COMPARISON: The present examination has been compared to a prior imaging study performed at [facility] on 11/04/2020. TECHNIQUE: The following mammographic [...] evaluation. A diagnostic left breast ultrasound exam ([id number]) is recommended. There is no evidence of malignancy in the right breast. BI-RADS Category 0: Incomplete, Needs Additional Imaging Evaluation The Breast Center Coordinator and Navigator will place a reflexive Epic order, contact and schedulethe appropriate appointments. RISK ASSESSMENT: Estimated lifetime breast cancer risk: Average (less than 15%, as per the Tyrer-Cuzick/BRISA model) NCI Lifetime Risk Score: 9.7% Pamella Mittal MD - 07/07/2022 EXAM: BILATERAL SCREENING MAMMOGRAM W/TOMOSYNTHESIS AND CAD CLINICAL HISTORY: Patient is 46 years old and is seen for screening. The patient has no personal history of cancer. The patient has no family history of breast cancer. COMPARISON: The present examination has been compared to a prior imaging study performed at [facility] on 11/04/2020. TECHNIQUE: The following mammographic [...] evaluation. A diagnostic left breast ultrasound exam ([id number]) is recommended. There is no evidence of malignancy in the right breast. BI-RADS Category 0: Incomplete, Needs Additional Imaging Evaluation The Breast Center Coordinator and Navigator will place a reflexive Epic order, contact and schedulethe appropriate appointments. RISK ASSESSMENT: Estimated lifetime breast cancer risk: Average (less than 15%, as per the Tyrer-Cuzick/BRISA model) NCI Lifetime Risk Score: 9.7% [facility] Centeriology Study observation (narrative)[facility] MAMMO SCREEN BILAT KOBE W/CADon [id number] MAMMO SCREEN BILAT KOBE W/CADEXAM: BILATERAL SCREENING MAMMOGRAM W/TOMOSYNTHESIS AND CAD CLINICAL HISTORY: Patient is 46 years old and is seen for screening. The patient has no personal history of cancer. The patient has no family history of breast cancer. COMPARISON: The present examination has been compared to a prior imaging study performed at [facility] on 11/04/2020. TECHNIQUE: The following mammographic [...] evaluation. A diagnostic left breast ultrasound exam ([id number]) is recommended. There is no evidence of malignancy in the right breast. BI-RADS Category 0: Incomplete, Needs Additional Imaging Evaluation The Breast Center Coordinator and Navigator will place a reflexive Epic order, contact and schedulethe appropriate appointments. RISK ASSESSMENT: Estimated lifetime breast cancer risk: Average (less than 15%, as per the Tyrer-Cuzick/BRISA model) NCI Lifetime Risk Score: 9.7%NormalThe [facility] SystemProgress Noteson [id number] Authentication Interface Message TextUrgent visit: CC: resp illness seen at [facility] resp cultures and chest film done neg per pt scant mucus no fever cough leading to vomit bodyaches n/v/d seen 07/01 missing work just completed prednisone pulse ox 100% USING ALBUTEROL and nebs up to 3 times daily is wheezing feels rattle in chest BP Readings from Last 6 Encounters: 07/07/22 152/89 03/31/21 129/88 12/09/20 136/88 10/22/20 127/79 10/06/20 113/69 10/06/20 119/58 will need bp follow up Lipids (last 3 years, up to 5 values) Chol- esterol TG HDL LDL Chol / HDL LDL / HDL Non HDL 10/22/20 0947 211 245 45 134 4.69 2.98 166 02/18/20 0937 204 154 49 135 4.16 2.76 155 reviewed Physical exam: BP 152/89 (BP Location: right arm, BP position: sitting, Cuff Size: large adult ) Pulse 77 Temp 98.4 ???F (36.9 ???C) (Temporal) Resp 16 Ht 5' 2 (1.575 m) Wt 271 lb 12.8 oz (123.3 kg) LMP (LMP Unknown) SpO2 100% BMI 49.71 kg/m??? Alert, well hydrated, in no acute distress. Extraocular movements intact. Hearing is adequate. Frontal and maxillary sinuses nontender. Oropharynx normal; no erythema or exudate. Neck supple, without adenopathy. Chest clear to auscultation. slight end exp wheeze anteriorly Heart has regular rate and rhythm; no murmur or gallop. Abdomen soft, nontender, without masses or organomegaly. External auditory canal and tympanic membrane are normal. Assessment ICD-10-CM 1. Hypertension, unspecified type I10 2. Postablative hypothyroidism E89.0 3. Intermittent asthma without complication, unspecified asthma severity J45.20 4. Cough, unspecified type R05.9 guaifenesin-codeine 200-10 MG/5ML oral liquid Medications ordered/changed in this encounter Disp Refills Start End predniSONE (DELTASONE) 20 MG tablet 10 Tablet 0 07/07/2022 07/12/2022 Sig - Route: Take 2 Tablets by mouth daily for 5 days. - Oral guaifenesin-codeine 200-10 MG/5ML oral liquid 240 mL 0 07/07/2022 07/14/2022 Sig - Route: Take 5 mL by mouth every 4 hours as needed for Cough for up to 7 days. - OralNormalThe [facility] HospitalSocialthing SystemTranscription Authentication Interface Message TextPatient was identified by name and date of . Rosi Guzman The [employer] SystemUS BREAST/AXILLA LEFTon [id number] BREAST/AXILLA LEFT EXAM: Left US BREAST/AXILLA LEFT CLINICAL HISTORY: Patient is 46 years old and is seen for diagnostic exam and follow up from a previous breast imaging study in the left breast. The patient has no personal history of cancer. The patient has no familyhistory of breast cancer. COMPARISON: The present examination has been compared to a prior imaging study performed at [facility] on 11/04/2020. TECHNIQUE: Handheld real-time ultrasound study was done by registered technologist with images submitted for review and dictation. Examination was done in a directed fashion of the site(s) of interest. ULTRASOUND FINDINGS: There is a cyst measuring 1.1 x 0.9 x 1.3 cm in the left breast at 6 o'clock, 4 cm from the nipple.This likely accounts for the mammographic area of interest. IMPRESSION: Cyst in the left breast is benign. A return to screening in 1 year is recommended. BI-RADS Category 2: Benign Finding(s)NormalThe [facility] HospitalSocialthing [facility] Breast - leftOrdered By: Pamella Stapleton on 37-57-5238KF-RADS Category2: Benign Finding(s)[facility] Work Phone: [facility] Work Phone: US Breast - lefton [id number]: Left US BREAST/AXILLA LEFT CLINICAL HISTORY: Patient is 46 years old and is seen for diagnostic exam and follow up from a previous breast imaging study in the left breast. The patient has no personal history of cancer. The patient has no familyhistory of breast cancer. COMPARISON: The present examination has been compared to a prior imaging study performed at [facility] on 11/04/2020. TECHNIQUE: Handheld real-time ultrasound study was done by registered technologist with images submitted for review and dictation. Examination was done in a directed fashion of the site(s) of interest. ULTRASOUND FINDINGS: There is a cyst measuring 1.1 x 0.9 x 1.3 cm in the left breast at 6 o'clock, 4 cm from the nipple.This likely accounts for the mammographic area of interest. IMPRESSION: Cyst in the left breast is benign. A return to screening in 1 year is recommended. BI-RADS Category 2: Benign Finding(s) Pamella Mittal MD - 07/07/2022 EXAM: Left US BREAST/AXILLA LEFT CLINICAL HISTORY: Patient is 46 years old and is seen for diagnostic exam and follow up from a previous breast imaging study in the left breast. The patient has no personal history of cancer. The patient has no familyhistory of breast cancer. COMPARISON: The present examination has been compared to a prior imaging study performed at [facility] on 11/04/2020. TECHNIQUE: Handheld real-time ultrasound study was done by registered technologist with images submitted for review and dictation. Examination was done in a directed fashion of the site(s) of interest. ULTRASOUND FINDINGS: There is a cyst measuring 1.1 x 0.9 x 1.3 cm in the left breast at 6 o'clock, 4 cm from the nipple.This likely accounts for the mammographic area of interest. IMPRESSION: Cyst in the left breast is benign. A return to screening in 1 year is recommended. BI-RADS Category 2: Benign Finding(s) [facility] HospitalRadiology Study observation (narrative)[facility] AUTO DIFFon [id number] #0.0 103/ulNormal0.0-0.1Henry County HospitalComment on above: Performed By: #### CBC #### [facility] [address] [place], [place] [address] Dr. Duran Aguileraphils/100 WBC (Bld)0.5 %Normal0.2-2.0[facility] Comment on above:Performed By: #### CBC #### [facility] [address] [place], [place] [address] Dr. Duran Klein #0.1 103/ulNormal0.0-0.7The [facility] NorthComment on above: Performed By: #### CBC #### [facility] [address] [place] [address] [address] Duran Ricoosinophils/100 WBC (Bld)2.1 %Normal0.9-7.0The [facility] Comment on above:Performed By: #### CBC #### [facility] [address] [place] [address] Dr. Duran Ricorythrocyte distribution width (RBC) [Ratio]13.1 %Czxjgl69.0-15.0 The [facility] NorthComment on above:Performed By: #### CBC #### [facility] [address] [place] [address] Dr. Duran BrooksHematocrit (Bld) [Volume fraction]45.7 %Jrdbrp63.0-48.0The [facility] NorthComment on above:Performed By: #### CBC #### [facility] [address] [place] [address] Dr. Duran BrooksHemoglobin (Bld) [Mass/Vol]15.3 g/eWUepeub69.0-16.0The [facility] NorthComment on above:Performed By: #### CBC #### [facility] [address] [place] [address] Dr. Duran Vasquez #0.01 10e3/ulNormal0.00-0.03The [facility] NorthComment on above:Performed By: #### CBC #### [facility] [address] [place] [address] Dr. Duran BrooksIG %0.2 %Normal0.0-0.5The [facility] NorthComment on above: Performed By: #### CBC #### [facility] [address] [place] [address] Dr. Duran DamonH #1.5 103/ulNormal1.2-3.8The [facility] NorthCommymichigan medical center [place] on above:Performed By: #### CBC #### [facility] [address] [place] [address] Dr. Duran Boylemphocytes/100 WBC (Bld)24.5 %Lffbss13.5-60.0The [facility] on above:Performed By: #### CBC #### [facility] [address] [address] [address] Duran Dye DIFF REQNONormalThe [facility] NorthCommymichigan medical center [place] on above: Performed By: #### CBC #### [facility] [address] [place] [address] Dr. Duran Bateman (RBC) [Entitic mass]29.0 lcImtyth71.7-34.0The [facility] NorthComment on above:Performed By: #### CBC #### [facility] [address] [place] [address] Dr. Duran Bateman (RBC) [Mass/Vol]33.5 g/eLBtyism85.9-35.2The [facility] on above:Performed By: #### CBC #### [facility] [address] [place] [address] Dr. Duran Bateman (RBC) [Entitic vol]86.7 rTXriyfn02.0-99.0The [facility] on above:Performed By: #### CBC #### [facility] [address] [place] [address] Dr. Duran Gooden #0.8 103/ulNormal0.3-0.8The [facility] on above:Performed By: #### CBC #### [facility] [address] [place] [address] Dr. Duran Cabralesocytes/100 WBC (Bld)12.3 %Critically high1.7-12.0The [facility] on above:Performed By: #### CBC #### [facility] [address] [place] [address] Dr. Duran Morataya #3.7 103/ulNormal1.4-6.5The [facility] on above:Performed By: #### CBC #### [facility] [address] [place] [address] Dr. Duran Bernalutrophils/100 WBC (Bld)60.4 %Acjppo19.0-75.0The [facility] NorthComment on above:Performed By: #### CBC #### [facility] [address] [address] [address] Duran Camargolet mean volume (Bld) [Entitic vol]9.6 fLNormal9.5-13.5The [facility] NorthComment on above:Performed By: #### CBC #### [facility] [address] [place] [address] Dr. Duran BrooksPLT266 103/yqLmbgkl956-627Hto [facility] NorthComment on above: Performed By: #### CBC #### [facility] [address] [place] [address] Dr. Duran BrooksRBC5.27 106/ulNormal4.20-5.40The [facility] NorthComment on above:Performed By: #### CBC #### [facility] [address] [place] [address] Dr. Duran BrooksWBC6.1 103/ulNormal4.0-11.0The [facility] NorthComment on above: Performed By: #### CBC #### [facility] [address] [place] [address] Dr. Duran BrooksGROUP A STREP CULTUREon 07-01-2022S. pyogenes Ag Ql (Unsp spec) Culture Observations: NEGATIVE FOR GROUP A STREPTOCOCCUS.NormalThe [facility] NorthComment on above: Performed By: #### SSCRN, GRASTCX #### [facility] [address] [place] [address] Dr. Duran BrooksPROF CHEM 8 (BAS METB)on 10-70-2558Mzlqq gap [Moles/Vol]13.4 mmol/LNormalThe [facility] NorthComment on above:Performed By: #### BMP #### [facility] [address] [place] [address] Dr. Duran BrooksCalcium [Mass/Vol]9.2 mg/dLNormal8.5-10.1The [facility] Comment on above:Performed By: #### BMP #### [facility] [address] [place], [place] [id number] Dr. Duran BrooksChloride [Moles/Vol]103 mmol/XPyozdi62-468Leu [facility] Comment on above:Performed By: #### BMP #### [facility] [address] [address] [address] Duran BrooksCO2 [Moles/Vol]27.7 mmol/QMqhofn24.0-32.0The [facility] Comment on above:Performed By: #### BMP #### [facility] [address] [address] [address] Duran BrooksCreatinine [Mass/Vol]0.98 mg/dLNormal0.55-1.02The [facility] NorthComment on above:Performed By: #### BMP #### [facility] [address] [place] [address] Dr. Garzon ChangEGFR-AF MAURITANIAN>60Normal>=60The [facility] NorthComment on above:Performed By: #### BMP #### [facility] [address] [place] [address] Dr. Duran RicoGFR-NON AF MAURITANIAN>60Normal>=60The [facility] NorthComment on above:Performed By: #### BMP #### [facility] [address] [place] [address] Dr. Duran BrooksGlucose [Mass/Vol]123 mg/dLCritically nbib96-285Opl [facility] NorthComment on above:Performed By: #### BMP #### [facility] [address] [place] [address] Dr. Duran BrooksPotassium [Moles/Vol]4.1 mmol/LNormal3.5-5.1The [facility] Comment on above:Performed By: #### BMP #### [facility] [address] [place] [address] Dr. Duran BrooksSodium [Moles/Vol]140 mmol/YDgltdb282-578Zxr [facility] Comment on above:Performed By: #### BMP #### [facility] [address] [address] [address] Duran BrooksUrea nitrogen [Mass/Vol]18.0 mg/dLNormal7.0-18.0The [facility] NorthComment on above:Performed By: #### BMP #### [facility] [address] [place] [address] Dr. Duran Villalta nitrogen/Creatinine [Mass ratio]18.4 mg/mgNormalThe [facility] NorthComment on above:Performed By: #### BMP #### [facility] [address] [place] [address] Dr. Duran BrooksRESPIRATORY PANEL PLUSon 18-91-3516VxtyrytljxGln detectedNormal NOT DETECTEDThe [facility] NorthComment on above:Performed By: #### RSPLUS #### [facility] [address] [place] [address] Dr. Duran Kruse ParapertusisNot detectedNormalNOT DETECTEDThe [facility] NorthComment on above:Performed By: #### RSPLUS #### [facility] [address] [place] [address] Dr. Duran Woodard. PertussisNot detectedNormalNOT DETECTEDThe [facility] Comment on above:Performed By: #### RSPLUS #### [facility] [address] [place] [address] Dr. Duran BrooksChlamydia PneumoniaeNot detectedNormalNOT DETECTEDThe [facility] NorthComment on above:Performed By: #### RSPLUS #### [facility] [address] [place] [address] Dr. Duran BrooksCoronavirus 229ENot detectedNormalNOT DETECTEDThe [facility] NorthComment on above:Performed By: #### RSPLUS #### [facility] [address] [place] [address] Dr. Duran BrooksCoronavirus FWI0Wko detectedNormalNOT DETECTEDThe [facility] NorthComment on above:Performed By: #### RSPLUS #### [facility] [address] [place] [address] Dr. Duran BrooksCoronavirus WU48Vjt detectedNormalNOT DETECTEDThe [facility] NorthComment on above:Performed By: #### RSPLUS #### [facility] [address] [address] [address] Duran BrooksCoronavirus HP45Bpm detectedNormalNOT DETECTEDThe [facility] NorthComment on above:Performed By: #### RSPLUS #### [facility] [address] [address] [address] Duran Reddy A H1Not detectedNormalNOT DETECTEDThe [facility] Comment on above:Performed By: #### RSPLUS #### [facility] [address] [address] [address] Duran Reddy A H1 2009Not detectedNormalNOT DETECTEDThe [facility] NorthComment on above:Performed By: #### RSPLUS #### [facility] [address] [address] [address] Duran Reddy A H3Not detectedNormalNOT DETECTEDThe [facility] Comment on above:Performed By: #### RSPLUS #### [facility] [address] [address] [address] Duran Reddy BNot detectedNormalNOT DETECTEDHenry [facility] Comment on above:Performed By: #### RSPLUS #### [facility] [address] [address] [address] Duran ElkinsapneumovirusDetectedAbnormalNOT DETECTEDThe [facility] Comment on above:Performed By: #### RSPLUS #### [facility] [address] [address] [address] Duran Navarro. PneumoniaeNot detectedNormalNOT DETECTEDThe [facility] NorthComment on above:Performed By: #### RSPLUS #### [facility] [address] [address] [address] Duran Morrison 1Not detectedNormalNOT DETECTEDThe [facility] NorthComment on above:Performed By: #### RSPLUS #### [facility] [address] [address] [address] Duran Morrison 2Not detectedNormalNOT DETECTEDThe [facility] NorthComment on above:Performed By: #### RSPLUS #### [facility] [address] [address] [address] Duran Morrison 3Not detectedNormalNOT DETECTEDThe [facility] NorthComment on above:Performed By: #### RSPLUS #### [facility] [address] [place] [address] Dr. Duran Morrison 4Not detectedNormalNOT DETECTEDThe [facility] NorthComment on above:Performed By: #### RSPLUS #### [facility] [address] [place] [address] Dr. Duran BrooksRhino/EnterovirusNot detectedNormalNOT DETECTEDThe [facility] NorthComment on above:Performed By: #### RSPLUS #### [facility] [address] [place] [address] Dr. Duran Herrera Header 1RESPIRATORY PANEL: VIR[facility]ESPro[facility] Comment on above:Performed By: #### RSPLUS #### [facility] [address] [place] [address] Dr. Duran Herrera Header 2RESPIRATORY PANEL: BACTERIANoBlanchard Valley Health SystemComment on above:Performed By: #### RSPLUS #### [facility] [address] [place] [address] Dr. Duran CastroVNot detectedNormalNOT DETECTEDThe [facility] NorthCommymichigan medical center alma on above:Performed By: #### RSPLUS #### [facility] [address] [place] [address] Dr. Duran Neumann-CoV-2 (COVID-19) RNA OMA+probe Ql (Unsp spec)Not detected NormalNOT DETECTEDThe [facility] NorthComment on above:Performed By: #### RSPLUS #### [facility] [address] [place] [address] Dr. Duran BrooksSTREPT SCREENon [id number] SCREEN ANegativeNormalNEGATIVEThe [facility] NorthComment on above:Performed By: #### SSCRN, GRASTCX #### [facility] [address] [id number] Duran BrooksXR CHEST 1 Von [id number] CHEST 1 VEXAM: XR CHEST 1 V 07/01/2022 HISTORY: SHORTNESS OF BREATH COMPARISON: Chest x-ray 03/25/2021. TECHNIQUE: Single AP view Impression: 1. Stable unremarkable cardiac mediastinal silhouette. 2. No acute pulmonary process. 3. Mildly elevated right hemidiaphragm. Electronically authenticated by: RONI RAMOS Date: 2022-07-01 07:36[facility] HospitalED Note-Physicianon [id number] Note-PhysicianBasic Information Time Seen: Epifanio Martínez PA-C 03/14/2021 11:53 Chief Complaint Pt states her sister was covid +, had symptoms starting on . States she has a sore throat and cough. History of Present Illness 45-year-old female comes to the ED for evaluation of sore throat. Recent Covid exposure. She has mild cough, congestion and sore throat. No difficulty with speaking or swallowing. No chest pain or shortness of breath. She is been taking Tylenol. Review of Systems A 10 point review of systems is negative except as noted above. Medical and Surgical History: Reviewed and noted Social history: Lives at home Tobacco: Denies Physical Exam Vitals & Measurements T: 36.2 ?C(Oral) HR: 83(Peripheral) RR: 17 BP: 176/98 SpO2: 99% HT: 157 cm HT: 157.0 cm WT: 117 kg WT: 117.0 kg BMI: 47.47 Nurses notes and vital signs reviewed and patient is not hypoxic. General: Well-appearing, does not appear ill Skin: Warm, dry. Head: Atraumatic. Neck: No JVD. Eye: Normal conjunctiva. Ears, Nose, Mouth, and Throat: Sinus congestion, no difficulty with speaking or swallowing. Mild pharyngeal erythema. No tonsillar hypertrophy or exudates. Cardiovascular: Not tachycardic Chest wall: Respiratory: Respirations are nonlabored. Back: Normal range of motion. Musculoskeletal: Normal ROM with no gross deformity. Gastrointestinal: Urological: Neurological: Awake and alert. No focal deficits. Follows commands. Psychiatric: Cooperative. Medical Decision Making Patient well-appearing on examination. Stable vital signs. No hypoxia. Likely Covid infection givensymptomology and recent exposure. Covid testing is pending. Patient discharged home with PCP follow-up. Patient was encouraged to return to the ED if symptoms worsen or change. Assessment/Plan Exposure to COVID-19 virus (Z20.822: Contact with and (suspected) exposure to COVID-19) Upper respiratory infection (J06.9: Acute upper respiratory infection, unspecified) Orders: dexamethasone, 6 mg = 1.5 tab(s), Oral, Daily, X 7 day(s), # 11 tab(s), Refills(s) 0 dextromethorphan-promethazine, 5 mL, Oral, q6hr for cough for 5 day(s), 200 mL, Refill(s) 0 COVID-19 ([facility]) Disposition Plan Patient Discharge Condition Disposition: Discharged home Condition: Improved and stable Counseled: Patient and/or family were counseled to workup, results, treatment plan and follow-up recommendations Discharge Prescription List Prescriptions dexamethasone 4 mg Tab, 6 mg= 1.5 tab(s), Oral, Daily dextromethorphan-promethazine 15 mg-6.25 mg/5 mL Oral Syrup 5 mL, 5 mL, Oral, q6hr, PRN Follow-up With When Contact Information KADI MORENO In 3 days 03/17/2021 [place], [place] [address] (1) Additional Instructions: Patient Education COVID-19 Upper Respiratory Infection, Adult Attestation Patient seen and evaluated by the physician ob gyn physician assistant. Attending physician was present in the emergency department and supervised care. This report was transcribed using voice recognition software. Every effort was made to ensure accuracy, however, inadvertently computerized butcher apprentice mistakes may be present. Appropriate healthcare PPE was used in evaluating this patient. The patient was placed in a mask. The healthcare provider was wearing mask, gloves, googles and utilizing proper hand hygiene. All equipment was properly cleansed. Problem List/Past Medical History Ongoing No qualifying data Historical No qualifying data Medications Inpatient No active inpatient medications Home No active home medications Allergies Augmentin (Vomit) Ceclor (Rash) sulfa drugs (Vomit) Social History Alcohol - Denies Alcohol Use, 03/14/2021 Substance Abuse - Denies Substance Abuse, 03/14/2021 Tobacco - Denies Tobacco Use, 03/14/2021 Lab Results No qualifying data available. Diagnostic Results No qualifying data available.[facility]-FairhillComment on above: Result Comment: Electronically Signed By: Epifanio Martínez PA-C\.br\Date and Time Signed: 03/14/2213:26 EST\.br\Electronically Co-Signed By: Noe Dash MD\.br\Date and Time Co-Signed: 03/25/21 09:36 ESTCoding Summary.on 03-19-2021 Coding Summary. CD:[id number] [file] ZTog (more content not included)...[facility] Note-Nursingon [id number] Note-NursingPt reports she felt like she was not taken care of in ER visit yesterday. Pt reports was only givenDecadron by provider and reports she was told she could call to receive more meds if she needed them. Per provider note, this information was not mentioned. Pt reports she feels frustrated that she cannot get an inhaler or z-pack sent in.[facility] HospitalC[facility] ([facility])on [id number]-CoV-2 (COVID-19) RNA OMA+probe Ql (Resp)DetectedAbnormalNot [facility] Comment on above:Result Comment: Results Called To [facility] Rodríguez (ED) By [facility] And Read Back For Confirmation On 03/14/2021 17:43:37 EST. This test result should be correlated with clinical presentations and medical history by a healthcare provider to determine its clinical significance. This assay was performed by a reverse transcriptase real-time polymerase chain reaction (rt PCR) method on the [employer] system. This test has been authorized only for the detection of nucleic acid from SARS-CoV-2, not for any other viruses or pathogens. This test has not been FDA cleared or approved. This test has been authorized by FDA under an Emergency Use Authorization (EUA). This test is only authorized for the duration of time the declaration on that circumstances exist justifying the authorization emergency use of in vitro diagnostic tests for detection and/or diagnosis of COVID-19 infection under section 564 (b) (1) of the Act, 21 U.S.C. 360 bbb-3 (b) (1), unless authorization is terminated or revoked sooner.Performed By: #### [id number] #### [facility] [address] [place], [place] [address]SARS-CoV-2 (COVID-19) RNA OMA+probe Ql (Unsp spec)PassNormSumma HealthComment on above:Performed By: #### [id number] #### [facility] [address] [place], [place] [address]Specimen source Nom (Unsp spec)NasalNormUniversity Hospitals Cleveland Medical CenterComment on above:Performed By: #### [id number] #### [facility] [address] [place], [place] [address]ADMITTED TO INTENSIVE CARE UNIT FOR CONDITION OF INTEREST:FIND:PT:UnknownNormUniversity Hospitals Cleveland Medical CenterComment on above: Performed By: #### [id number] #### [facility] [address] [place], [place] [address]EMPLOYED IN A HEALTHCARE SETTING:FIND:PT:UnknownNormUniversity Hospitals Cleveland Medical CenterComment on above:Performed By: #### [id number] #### [facility] [address] [place] [id number] TEST FOR CONDITION OF INTEREST:FIND:PT:UnknownNormal [facility] HospitalComment on above:Performed By: #### [id number] #### [facility] [address] [place], [place] [id number] SYMPTOMS RELATED TO CONDITION OF INTEREST:FIND:PT:Unknown [facility]hillComment on above:Performed By: #### [id number] #### [facility] [address] [place], [place] [address]HOSPITALIZED FOR CONDITION OF INTEREST:FIND:PT:UnknownNormal [facility] HospitalComment on above:Performed By: #### [id number] #### [facility] [address] [place] [id number] STATUS:FIND:PT:UnknownNormalNewark HospitalComment on above:Performed By: #### [id number] #### [facility] [address] [place] [id number] IN A CONGREGA CARE SETTING:FIND:PT:UnknownNormal [facility] HospitalComment on above:Performed By: #### [id number] #### [facility] [address] [place] [address]Clzclxe for Treatmenton [id number] for Treatment [id number]:[address] [place], [place] [address]Discharge Instructionson 86-30-2532Oudhpxean Instructions [id number]:127[facility] Clinical Summaryon [id number] Clinical Summary [address] [address] ED Clinical Summary Person Information Name: RADHA MILLS [facility] Age: 45 Years : 1975 Sex: Female Language: Kyrgyz PCP: KADI MORENO MD Marital Status: Single Visit Id: Visit Reason: Throat pain - Adult; Cough; CHILLS, ACHES, COUGH Speciality: Acuity: 4 Enc Type: Emergency Med Service: Emergency Arrival: 03/14/2021 11:42:06 Discharge: 03/14/2021 12:41:54 LOS: 000 00:59 Checkin: 03/14/2021 11:42:06 Checkout: 03/14/2021 12:41:54 Dispo Type: Home (Routine DC) EVENTS: Event Name Event Status Request Date/Time Start Date/Time Complete Date/Time Arrive Complete 03/14/2021 11:42:06 03/14/2021 11:42:06 03/14/2021 11:42:06 Document Home Meds Request 03/14/2021 11:42:06 Triage Complete 03/14/2021 11:42:06 03/14/2021 11:50:59 03/14/2021 11:50:59 Bed Assign Complete 03/14/2021 11:45:29 03/14/2021 11:45:29 03/14/2021 11:45:29 Dr Exam Complete 03/14/2021 11:45:29 03/14/2021 11:53:11 03/14/2021 11:53:11 RN Exam Complete 03/14/2021 11:45:29 03/14/2021 11:53:28 03/14/2021 11:53:28 Patient Care Request 03/14/2021 11:50:59 Patient Isolation Request 03/14/2021 11:50:59 Registration Complete 03/14/2021 11:53:11 03/14/2021 11:59:41 03/14/2021 11:59:41 Reg Complete Request 03/14/2021 11:59:41 Reg Bed Request Complete 03/14/2021 11:59:41 03/14/2021 11:59:41 03/14/2021 11:59:41 Patient Care Request 03/14/2021 12:16:56 Patient Isolation Request 03/14/2021 12:16:56 Dr Exam Complete 03/14/2021 12:21:17 03/14/2021 12:21:17 03/14/2021 12:21:17 Registration Request 03/14/2021 12:21:17 Pending Labs Request 03/14/2021 12:27:07 Lab Request 03/14/2021 12:27:07 Discharge Complete 03/14/2021 12:27:22 03/14/2021 12:41:59 03/14/2021 12:41:59 Transfer Complete 03/14/2021 12:41:59 03/14/2021 12:41:59 03/14/2021 12:41:59 ADDRESS: [address] [place] [id number] PHYS DOC NOTES: MEDICAL INFORMATION: Prescriptions Given: New Medications Printed Prescriptions dexamethasone (dexamethasone 4 mg Tab) 1.5 Tablets By Mouth every day for 7 Days. Refills: 0. dextromethorphan-promethazine (dextromethorphan-promethazine 15 mg-6.25 mg/5 mL Oral Syrup 5 mL) 5 Milliliter By Mouth every 6 hours as needed for cough for 5 Days. Refills: 0. PATIENT EDUCATION INFORMATION: Instructions: COVID-19; Upper Respiratory Infection, Adult Follow up: With: Address: When: KADI MORENO [address] [place] [address] [facility] (1) In 3 days 03/17/2021 DIAGNOSIS: Exposure to COVID-19 virus; Upper respiratory infectionNoBrecksville [facility] Patient Summaryon [id number] Patient Summary [address] [id number] Patient Discharge Instructions Person Information Name: IMELDA MILLSLIGiovana Iglesias Age: 45 Years Arrival Date: 03/14/2021 11:42:06 Discharge Diagnosis: Exposure to COVID-19 virus; Upper respiratory infection Primary Care Physician: KADI MORENO MD Provider Information Primary Provider: Noe Dash MD [employer] Supervisor:Epifanio Martínez PA-C The exam and treatment you received in the Emergency Department were for an urgent problem and are not intended as complete care. It is important that you follow up with a doctor, nurse practitioner,or physician?s ob gyn physician assistant for ongoing care. If your symptoms become worse or you do not improve as expected and you are unable to reach your usual health care provider, you should return to the Emergency Department. We are available 24 hours a day. RADHA MILLS has been given the following list of patient education materials, prescriptions and follow-up instructions: Follow-up Instructions: With: Address: When: KADI MORENO [address] [place] [address] [employer] (1) In 3 days 03/17/2021 In the event that this physician does not participate in your insurance network, please consult with your insurance company to find a nearby participating provider. Patient Education Materials: COVID-19; Upper Respiratory Infection, Adult A MESSAGE TO ALL PATIENTS REGARDING OPIOIDS PRESCRIPTION OPIOIDS: WHAT YOU NEED TO KNOW Prescription opioids can be used to help relieve wswcwfxw-tw-lzupok pain and are often prescribed following a surgery or injury, or for certain health conditions. These medications can be an important part of the treatment but also come with serious risks. It is important to work with your healthcare provider to make sure you are getting the safest, most effective care. WHAT ARE THE RISKS AND SIDE EFFECTS OF OPIOID USE? Prescription opioids carry serious risks of addiction and overdose, especially with prolonged use. An opioid overdose, often marked by slowed breathing, can cause sudden . The use of prescription opioids can have a number of side effects as well, even when taken as directed: ? Tolerance?meaning you might need to take more of the medication for the same pain relief ? Physical dependence?meaning you have symptoms of withdrawal when a medication is stopped ? Increased sensitivity to pain ? Constipation ? Nausea, vomiting, and dry mouth ? Sleepiness and dizziness ? Confusion ? Depression ? Low levels of testosterone that can result in lower sex drive, energy, and strength ? Itching and sweating RISKS ARE GREATER WITH: ? History of drug misuse, substance use disorder, or overdose ? Mental health conditions (such as depression or anxiety) ? Sleep apnea ? Older age (65 years and older) ? Avoid alcohol while taking prescription opioids. Also, unless specifically advised by your health care provider, medications to avoid include: ? Benzodiazepines (such as Xanax or Valium) ? Muscle relaxants (such as Soma or Flexeril) ? Hypnotics (such as Ambien or Lunesta) ? Other prescription opioids KNOW YOUR OPTIONS Talk to your health care provider about ways to manage your pain that don?t involve prescription opioids. Some of these options may actually work better and have fewer risks and side effects. Optionsmay include: ? Pain relievers such as acetaminophen, ibuprofen, and naproxen ? Some medication that are also used for depression or seizures ? Physical therapy and exercise ? Cognitive behavioral therapy, a psychological, goal-directed approach, in which patients learn how to modify physical, behavioral, and emotional triggers of pain and stress. IF YOU ARE PRESCRIBED OPIOIDS FOR PAIN: ? Never take opioids in greater amounts or more often than prescribed. ? Follow up with your primary health care provider. o Work together to create a plan on how to manage your pain. o Talk about ways to help manage your pain that don?t involve prescription opioids. o Talk about any and all concerns and side effects. ? Help prevent misuse and abuse o Never sell or share prescription opioids. o Never use another person?s prescription opioids. ? Store prescription opioids in a secure place and out of reach of others (this may include visitors, children, friends, and family). ? Safely dispose of unused prescription opioids: Find your community drug take- back program or [employer] mail-back program, or flush them down the toilet, following guidance from the Food and Drug Administration (www.fda.gov/Drugs/ResourcesForYou). ? Visit www.cdc.gov/drugoverdose to learn about the risks of opioids abuse and overdose. ? If you believe you may be struggling with addiction, tell your health health care analyst and ask for guidance or call [facility] (more content not included)...[facility] Vital Signs Date TimeVital SignValuePerforming CfmhgpvljTbmredtp94-77-3339 08:46-0500Body ywxcux414.5 cmAlisha Lou PA Work Phone: [phone] CenterFyjhrnirkv30-76-1176 08:46-0500Body mass index (BMI) [Ratio]38.89 kg/j5HgdyaAlisha Lou PA Work Phone: [phone] HospitalUpllqcacnf10-06-1138 08:46-0500Body eqhvqh64.44 kgAlisha Lou PA Work Phone: [phone] CenterFowddirnlu55-90-5968 08:46-0500Diastolic blood yiizcnlp99 mm[Hg]Alisha Lou PA Work Phone: [facility] CenterBtoarghcxr44-15-0112 08:46-0500Heart rate96 /min Alisha Lou PA Work Phone: [phone] HospitalGzcqkwzxbb78-53-4776 08:46-0500Respiratory rate16 /minAlisha Lou PA Work Phone: [phone] CenterWvfumbyytu65-39-0638 08:46-5911VuS9% (BldA) [Mass fraction]98 %Alisha Lou PA Work Phone: noSS[facility] Children's HospitalPxhhfqoaia24-97-8455 08:46-0500Systolic blood ijstyrcn192 mm[Hg]Alisha Lou PA Work Phone: NOS[facility]'s HospitalLmihacfbnt96-64-2058 12:13-0400Body temperature 98.1 [degF]Mee Prakash SALES AND SERVICE CHANGE LEADER Work Phone: NOSSM [facility]'s HospitalTbwiqebtmm34-34-9194 12:13-0400Diastolic blood mm[Hg]Mee Prakash SALES AND SERVICE CHANGE LEADER Work Phone: NOS[facility] HospitalBupidqdmze83-82-9079 12:13-0400Heart rate86 /min Mee Prakash SALES AND SERVICE CHANGE LEADER Work Phone: noSS[facility]'s HospitalNuyowgkjrd19-92-6639 12:13-0818EzZ5% (BldA) [Mass fraction]99 %Mee Prakash SALES AND SERVICE CHANGE LEADER Work Phone: [facility] CenterVhimxthycw69-18-3564 12:13-0400Systolic blood mm[Hg]Mee Prakash SALES AND SERVICE CHANGE LEADER Work Phone: [facility] CenterYtyekvbwyx52-66-1309 16:05-0400Body gkvizw150.5 cmAlisha Hemmer PA Work Phone: noSS[facility] Children's HospitalIaspaymdla22-20-4582 16:05-0400Body mass index (BMI) [Ratio]39.36 kg/b2Ksins Hemmer PA Work Phone: NOS[facility] HospitalLavnqvazym92-51-9892 16:05-0400Body gavyqn98.61 kgAlisha Hemmer PA Work Phone: NOS[facility] HospitalFlwshrmjmq42-54-1521 16:05-0400Diastolic blood bvgfehbx04 mm[Hg]Alisha Lou PA Work Phone: NOS[facility] HospitalRycppzzvfj40-29-6890 16:05-0400Heart rate78 /min Alisha Hemmer PA Work Phone: noSS[facility]'s HospitalEmbxfomudy06-92-0910 16:05-0400Respiratory rate16 /minAlisha Hemmer PA Work Phone: noIA Wjewmrqmzl54-99-5340 16:05-7389EuS9% (BldA) [Mass fraction]97 %Alisha Hemmer PA Work Phone: [facility] CenterCfoozewtpj58-41-7354 16:05-0400Systolic blood aavabmsc890 mm[Hg]Alisha Hemmer PA Work Phone: [facility] CenterYttbcpxigk53-83-4541 16:03-0400Diastolic blood xkgagjur94 mm[Hg]Alisha Hemmer PA Work Phone: [facility] CenterFukbabcxqm38-29-3927 16:03-0400Systolic blood ygtwrdux406 mm[Hg]Alisha Hemmer PA Work Phone: [facility] CenterUwyqazxohh00-24-1968 15:40-0400Body iwwaaq120.5 cmYanicken Hemmer PA Work Phone: [facility] CenterImbqxyfvap38-14-3421 15:40-0400Body mass index (BMI) [Ratio]44.3 kg/d5Ciylx Hemmer PA Work Phone: [facility] CenterAbinaisxoo27-46-1285 15:40-0400Body fkvsar524.86 kgKaren Hemmer PA Work Phone: [facility] CenterIwdgubogxj93-18-9836 15:40-0400Heart rate79 /min Alisha Hemmer PA Work Phone: [facility] CenterZxyxrjadkb01-61-9915 15:40-0400Respiratory rate16 /minYanicken Hemmer PA Work Phone: [facility] CenterQohwcaxpjn50-12-6156 15:40-1366CqI0% (BldA) [Mass fraction]96 %Alisha Hemmer PA Work Phone: [facility] CenterOuizcwymkj52-94-1006 15:56-0500Diastolic blood ddsxyykn72 mm[Hg]Alisha Hemmer PA Work Phone: [facility] CenterQxxpfdfhyu64-10-6925 15:56-0500Systolic blood olwutjxd607 mm[Hg]Alisha Hemmer PA Work Phone: [phone] Sound of AmericaJohn J. Pershing VA Medical CenterXajgyneyba02-46-9500 15:33-0500Body bbysxz098.5 cmKaren Hemmer PA Work Phone: [facility] CenterKpkbxfjxdp36-30-2561 15:33-0500Body mass index (BMI) [Ratio]45.18 kg/i0Bpwka Hemmer PA Work Phone: [facility] CenterKmeetlwpsk40-37-6436 15:33-0500Body .04 kgKaren Hemmer PA Work Phone: [facility] CenterRxxtqzftju30-60-0006 15:33-0500Heart rate75 /min Alisha Hemmer PA Work Phone: [place] [phone] 15:33-0500Respiratory rate16 /minKaren Hemmer PA Work Phone: [phone]-2086[facility] CenterWrclvlahjm59-95-5819 15:33-7583BrB1% (BldA) [Mass fraction]98 %Alisha Hemmer PA Work Phone: [phone] [place], [place] [address]Mmeatirafc92-23-4245 10:32-0500Body mass index (BMI) [Ratio]47.77 kg/t8Gsuyv Hemmer PA Work Phone: [place] [address]Eimuvsvslz75-21-1092 10:32-0500Body eplvws587.48 kgKaren Hemmer PA Work Phone: [place] [address]Bmkcaarmjq35-34-2142 10:32-0500Diastolic blood wnmqmort97 mm[Hg]Alisha Hemmer PA Work Phone: [phone] [place], [place] [address]Cpphzaxbiz27-52-4036 10:32-0500Heart rate79 /min Alisha Hemmer PA Work Phone: [place] [address]Hiojfibpqz69-45-6470 10:32-0500Respiratory rate16 /minKaren Hemmer PA Work Phone: [phone]-[address] [address]Jghwahkfdq83-78-6727 10:32-9317TiJ2% (BldA) [Mass fraction]97 %Alisha Hemmer PA Work Phone: [place] [address]Aeiwppfreq94-91-2531 10:32-0500Systolic blood dlshxuls127 mm[Hg]Alisha Hemmer PA Work Phone: [facility] CenterZxxlqfuhhb02-11-9819 15:31-0400Body mass index (BMI) [Ratio]51.03 kg/n0Anfjv Hemmer PA Work Phone: [facility] CenterFazceqzqwd46-58-0447 15:31-0400Body temperature 98.71 [degF]Alisha Hemmer PA Work Phone: [facility] CenterCtzdxyfqgc47-20-2164 15:31-0400Body .55 kgAlisha Hemmer PA Work Phone: [facility] CenterFcfxdmfxup46-56-5512 15:31-0400Diastolic blood mm[Hg]Alisha Hemmer PA Work Phone: [facility] CenterYhqrpjprao74-27-6661 15:31-0400Heart rate90 /min Alisha Hemmer PA Work Phone: [facility] CenterMpwhrnwccp52-10-9233 15:31-0400Respiratory rate18 /minAlisha Hemmer PA Work Phone: [facility] CenterHbmgwqjwth53-35-3698 15:31-2444UvW2% (BldA) [Mass fraction]99 %Alisha Hemmer PA Work Phone: [facility] CenterOdkqrechvu99-63-2398 15:31-0400Systolic blood ywdrcyfo096 mm[Hg]Alisha Hemmer PA Work Phone: [facility] CenterVppldamrfc15-14-8433 23:13-0400Diastolic blood wbrosvsd10 mm[Hg]II Jacky Rolle Work Phone: [phone] [place], [place] 5441709-06-2024 23:13-0400 Heart rate74 /minII Jacky Rolle Work Phone: [phone] [place], [place] 2340109-06-2024 23:13-0400 Respiratory rate18 /minII Jacky Rolle Work Phone: [phone] [place], [place] 5441709-06-2024 23:13-0400 SaO2% (BldA) [Mass fraction]96 %II Jacky Rolle Work Phone: [phone] [place], [place] 2340109-06-2024 23:13-0400 Systolic blood pqgxgetq554 mm[Hg]II Jacky Rolle Work Phone: [facility]09-06-2024 19:15-0400 Body flymfe196.48 cmII Jacky Rolle Work Phone: [facility]09-06-2024 19:15-0400 Body mgqdeixopyl46.2 [degF]II Jacky Rolle Work Phone: [facility]09-06-2024 19:15-0400 Body kllxci909.15 kgII Jacky Rolle Work Phone: [facility]08-19-2024 12:47-0400 Body mass index (BMI) [Ratio]50.3 kg/z8Wfryswl Onesimo SALES AND SERVICE CHANGE LEADER Work Phone: [facility] CenterBlxxybpfdp39-44-2603 12:47-0400Body temperature 98.01 [degF]Anna Echols SALES AND SERVICE CHANGE LEADER Work Phone: [phone] CenterMlnfrthait05-11-8553 12:47-0400Body .74 kgLinshashi Echols SALES AND SERVICE CHANGE LEADER Work Phone: [place] [address]Cympybdwhb42-63-6065 12:47-0400Diastolic blood oxkbvalv60 mm[Hg]Anna Echols SALES AND SERVICE CHANGE LEADER Work Phone: [facility] CenterTgajexzbep39-81-1625 12:47-0400Heart rate90 /min Anna Echols SALES AND SERVICE CHANGE LEADER Work Phone: [place] [address]Qtllxnqpgb00-46-4958 12:47-3565CqJ4% (BldA) [Mass fraction]98 %Anna Echols SALES AND SERVICE CHANGE LEADER Work Phone: [place] [address]Gjbhogyjvg09-68-7414 12:47-0400Systolic blood gxsvzouk967 mm[Hg]Anna Echols SALES AND SERVICE CHANGE LEADER Work Phone: [facility] Healthcare Encounters Encounter DateEncounter TypeCare ProviderFacilityStart: 01-17-2025 End: 33-21-5620Gfwron outpatient visit 25 minutesAlisha IBARRA Work Phone: [facility] MedinceComment on above:Primary hypertension (Primary Dx); Generalized anxiety disorder; Attention or concentration deficit; Dermatitis; UrticariaStart: 01-17-2025 End: 35-05-7445mpwmmopduyKUNWBKaylan Torres AvailableStart: 12-24-2024 End: 67-35-5180Hwclnd outpatient visit 25 minutesMee Prakash NP Work Phone: [facility] CareComment on above:Herpes zoster without complication (Primary Dx)Start: 12-24-2024 End: 02-71-0721dozvburlrbNYVLWVR R LACONISNot AvailableStart: 11-13-2024 End: 70-16-0689Htptqi outpatient visit 25 minutesAlisha IBARRA Work Phone: NOVD [facility] MedinceComment on above:Primary hypertension (Primary Dx); Bilateral hand pain; Exposure to STD; Generalized anxiety disorder ; Class 2 severe obesity due to excess calories with serious comorbidity and body mass index (BMI) of39.0 to 39.9 in adult ([facility]-HCC); Attention or concentration deficitStart: 11-13-2024 End: 72-32-6706Zagapy Karol IBARRA Work Phone: N[facility] MedinceStart: 11-13-2024 End: 79-25-0896Hzumrqsonya IBARRA Work Phone: [facility] MedinceStart: 11-13-2024 End: 40-27-8711WawuaxQefym M Hemmer PA Work Phone: [facility] MedinceComment on above:Bilateral hand painStart: 11-06-2024 End: 57-93-9663BwydoqDccaa M Hemmer PA Work Phone: [facility] MedinceComment on above:Bilateral hand painStart: 10-03-2024 End: 23-71-3887Lugpuu-up encounterAlisha IBARRA Work Phone: [facility] CI FMStart: 07-31-2024 End: 11-03-4836TpixqoDzkof M Hemmer PA Work Phone: N[facility] CI FMComment on above:Bilateral hand painStart: 07-21-2024 End: 91-08-7929Ondcom encounterRuslan Chong MD Work Phone: [facility]Start: 06-13-2024 End: 55-95-7023Itxnkv OnlyAlisha Lou PA Work Phone: [facility] CI FMComment on above:Attention or concentration deficit (Primary Dx)Start: 06-12-2024 End: 25-29-6799Ukdscyh encounter statusAlisha Lou PA Work Phone: NOMS HealthcareStart: 06-12-2024 End: 79-10-3786Zdfypewd preventive med est patient 40-64yrsKaide Lou PA Work Phone: NOM[facility] CI FMComment on above:Wellness examination (Primary Dx); Screening for malignant neoplasm of colon; Other chronic pain; Mild intermittent asthma without complication (CMS/HCC); Primary hypertension (CMS/HCC); Class 3 severe obesity due to excess calories with serious comorbidity and body mass index (BMI) of40.0 to 44.9 in adult; Impaired fasting glucose; Postablative hypothyroidism (CMS/HCC); Other seborrheic dermatitis; Abnormal CBC; Adjustment disorder with mixed anxiety and depressed mood (CMS/HCC); Attention or concentration deficit; Elevated ALT measurement; Generalized anxiety disorder (CMS/HCC); History of COVID-19; Irritability and anger; PTSD (post-traumatic stress disorder) (CMS/HCC); Rosacea; Plantar fasciitis; Bilateral hand pain; Portal vein thrombosisStart: 06-12-2024 End: 46-86-2991wsvjjrqflxWMUCK M HEMMERNot AvailableStart: 06-12-2024 End: 84-74-6560Lakmlj Karol Lou PA Work Phone: [facility] CI FMStart: 06-12-2024 End: 35-25-6715Oswcyg Karol Lou PA Work Phone: [facility] CI FMStart: 06-09-2024 End: 59-36-0595OafssuRlkit M Hemmer PA Work Phone: noMS CI FMComment on above:Attention or concentration deficit; Binge eatingStart: 06-05-2024 End: 88-64-1278wapflydkugRPWLL HARDYNot AvailableStart: 05-30-2024 End: 84-25-1864meuminjyaiTOXNY HARDYNot AvailableStart: 05-15-2024 End: 01-41-1735ojdtswpdeyXDRLS HARDYNot AvailableStart: 05-15-2024 End: 92-80-5964Mbbyrw flowsheetTammy Santamaria LSWNOMS FNR BHStart: 05-15-2024 End: 09-32-6917Qynyrp flowsheetTammy Santamaria LSWNOMS FNR BHStart: 05-09-2024 End: 61-17-2568imrgbfdhdbANKZW HARDYNot AvailableStart: 05-09-2024 End: 59-19-6444Azeuae flowsheetTammy Santamaria LSWNOMS FNR BHStart: 05-09-2024 End: 82-21-3327Frjeqn flowsheetTammy Santamaria LSWNOMS FNR BHStart: 05-07-2024 End: 15-74-9495Qfnsfbrou encounterAlisha IBARRA Work Phone: [facility] CI FMStart: 05-03-2024 End: 30-98-7000Ejwctzmjd encounterKim Vora MD Work Phone: NOQU SWS OBStart: 04-30-2024 End: 93-90-0664Eucbjnfly Jaye IBARRA Work Phone: [facility] CI FMStart: 04-24-2024 End: 81-41-7399Ttailp outpatient visit 25 minutesAlisha IBARRA Work Phone: NOMS CI FMComment on above:Primary hypertension (CMS/HCC) (Primary Dx); Generalized anxiety disorder (CMS/HCC); Attention or concentration deficit; Screening for malignant neoplasm of colon; Encounter for screening mammogram for malignant neoplasm of breast; Screening for malignant neoplasm of cervix; Binge eating; Class 3 severe obesity due to excess calories with serious comorbidity and body mass index (BMI) of45.0 to 49.9 in adult (CMS/HCC); Bilateral hand pain; Other chronic painStart: 04-24-2024 End: 52-86-9130xztytmzofzSDXXW M HEMMERNot AvailableStart: 04-24-2024 End: 18-24-4896Mincrf Karol IBARRA Work Phone: [facility] CI FMStart: 04-24-2024 End: 52-11-6221Bnsalm Karol IBARRA Work Phone: noMS CI FMStart: 04-04-2024 End: 31-27-0613baxgnwxzjhJKBSZ HARDYNot AvailableStart: 04-04-2024 End: 52-60-1989Xwwwfa flowsheetTammy Santamaria LSWNOMS FNR BHStart: 04-04-2024 End: 16-60-5341Dlavhw flowsheetTammy Santamaria LSWNOMS FNR BHStart: 03-31-2024 End: 94-60-1885ZqrimpNaaob M Hemmer PA Work Phone: noMS CI FMComment on above:Generalized anxiety disorder (CMS/HCC); Bilateral hand painStart: 03-28-2024 End: 17-86-4532eitaeuqvybWABAR HARDYNot AvailableStart: 03-28-2024 End: 88-07-6535Itrgxm flowsheetTammy Santamaria LSWNOMS FNR BHStart: 03-28-2024 End: 97-72-6795Sseido flowsheetTammy Santamaria LSWNOMS FNR BHStart: 03-21-2024 End: 55-17-5387bgnbjnugglPHZKY HARDYNot AvailableStart: 03-21-2024 End: 08-64-0434Qswiml flowsheetTammy Santamaria LSWNOMS FNR BHStart: 03-21-2024 End: 73-07-1069Oxxpky flowsheetTammy Santamaria LSWNOMS FNR BHStart: 03-15-2024 End: 23-26-2267Yymzmd flowsheetTammy Santamaria LSWNOMS FNR BHStart: 03-15-2024 End: 61-44-9469Owmbgq flowsheetTammy Santamaria LSWNOMS FNR BHStart: 03-15-2024 End: 36-63-8486kujflcdnhmJFZTH HARDYNot AvailableStart: 03-08-2024 End: 17-04-8056Ifphyz flowsheetTammy Santamaria LSWNOMS FNR BHStart: 03-08-2024 End: 24-47-1621Twpyxm flowsheetTammy Santamaria LSWNOMS FNR BHStart: 03-08-2024 End: 01-14-2532lnjmatlyhhHTKDZ HARDYNot AvailableStart: 03-01-2024 End: 42-02-0566Zpabespwi encounterDairaj Rolle MD Work Phone: noms CI FMStart: 02-29-2024 End: 64-87-3823kuumsnldykJTLAK HARDYNot AvailableStart: 02-29-2024 End: 44-67-9014Qbqzxj flowsheetTammy Santamaria LSWNOMS FNR BHStart: 02-29-2024 End: 95-04-5922Jgaepu flowsheetTammy Santamaria LSWNOMS FNR BHStart: 02-27-2024 End: 00-34-3852CunvelEerffScar IBARRA Work Phone: noms CI FMComment on above:Bilateral hand painStart: 02-15-2024 End: 62-99-1187fdaubhfdklEVDVC HARDYNot AvailableStart: 02-15-2024 End: 41-73-3214Yanhut flowsheetTammy Santamaria LSWNOMS FNR BHStart: 02-15-2024 End: 02-26-2074Fjenmw flowsheetTammy Santamaira LSWNOMS FNR BHStart: 02-08-2024 End: 37-02-2909Xtclyh Karol IBARRA Work Phone: noms CI FMStart: 02-08-2024 End: 52-86-3202Vnlzjc Karol IBARRA Work Phone: NOM[facility] CI FMStart: 02-08-2024 End: 75-00-0078Hzospm outpatient visit 25 minutesAlisha IBARRA Work Phone: NOMS CI FMComment on above:Difficulty concentrating (Primary Dx); Generalized anxiety disorder (CMS/HCC); Bilateral hand pain; Class 3 severe obesity due to excess calories with serious comorbidity and body mass index (BMI) of45.0 to 49.9 in adult (CMS/HCC)Start: 02-08-2024 End: 55-66-7382gacgndnsxjDIXGI M HEMMERNot AvailableStart: 02-03-2024 End: 22-52-6918Qsotuhfkh encounterTammnelson Rosalio WILMER FNR FMStart: 01-20-2024 End: 58-17-8064XouldfTvsdmwq Rhona RENDON CI FMComment on above:Nephrolithiasis Start: 12-09-2023 End: 75-33-5336RpnuioYfuqmq B Berry MD Work Phone: NOMS CI FMComment on above:NephrolithiasisStart: 11-22-2023 End: 29-01-5940Cvbvej outpatient visit 25 minutesAlisha IBARRA Work Phone: NOMS CI FMComment on above:Acute pyelonephritis (Primary Dx); Nephrolithiasis; Right flank painStart: 11-22-2023 End: 58-97-7566Zixcep Karol IBARRA Work Phone: [facility] CI FMStart: 11-22-2023 End: 59-16-9836Ohmtqp Karol IBARRA Work Phone: NOM[facility] CI FMStart: 11-21-2023 End: 81-34-7017LdreubAopnlo B Berry MD Work Phone: NOMS CI FMComment on above:Nephrolithiasis (Primary Dx)Start: 11-18-2023 End: 74-08-0152Enfrlqpeg department patient visitII Jacky Rolle Work Phone: [facility] Work Phone: Start: 10-31-2023 End: 21-21-1701Iilibl outpatient visit 15 minutesAnna Echols SALES AND SERVICE CHANGE LEADER Work Phone: [facility] UCComment on above:Herpes zoster without complication (Primary Dx)Start: 42-61-6198Sdebwmqdz encounterCaitlin Cluod RN [facility] NeurologyStart: 98-87-2888Rvwker OnlyKadi Moreno MD Work Phone: [facility] MedicineStart: 08-24-2022 End: 90-28-9920uaingysnlcBFCTUCK PROVIDERFacility:[facility]ROHealthStart: 07-22-2022 Letter Chevy Moreno MD Work Phone: [facility]HealthStart: 33-96-5800Hkyhfh OnlyErika Bazzi RN Work Phone: [place] [phone] Breast CenterStart: 07-07-2022 End: 77-81-2170mbyzvqyqxaRTBBKPP PROVIDERFacility:[facility]ROHealthStart: 07-07-2022 End: 74-61-5442qcrdrcslslPIXTWJH PROVIDERFacility:[facility]ROHealthStart: 07-07-2022 Letter Chevy Moreno MD Work Phone: [place] [phone] Surg Ctr MammographyStart: 07-07-2022 End: 03-92-4241Pzecsvtzje hospital visit by vzxdxknedB972an Op Mammo Screen 1 Work Phone: [facility] Surg Ctr MammographyComment on above:Screening mammogram for breast cancerStart: 07-01-2022 End: 99-28-5575pxtviaimpkEK DOCTOR MISCFacility:L9Njqyv: 61-59-0624Rmoycb Only Kadi Moreno MD Work Phone: [facility] MedicineStart: 31-47-4674Kaagxb Chevy Moreno MD Work Phone: [facility] HospitalStart: 40-90-5605Asmkex encounterKadi Moreno MD Work Phone: [facility] Population Health OutreachStart: 09-07-2017 End: 64-20-9248Rqfdelk encounter statusKadi Moreno MD Work Phone: [facility] Procedures DateProcedureProcedure DetailPerforming ClinicianStart: 05-15-2024 End: 45-24-5872Gufjjuygpcneg w/patient 60 minutesPTSD (post-traumatic stress disorder) ([facility]/HCC)Joselyn Santamaria LSWComment on above:PTSD (post-traumatic stress disorder) (CMS/HCC)Start: 05-09-2024 End: 38-00-0651Uocqfbolenwsv w/patient 60 minutesPTSD (post-traumatic stress disorder) ([facility]/HCC)Joselyn Santamaria LSWComment on above:PTSD (post-traumatic stress disorder) (CMS/HCC)Start: 04-04-2024 End: 67-15-9447Oaxxkjvavjopa w/patient 45 minutesPTSD (post-traumatic stress disorder) ([facility]/HCC)Joselyn Santamaria LSWComment on above:PTSD (post-traumatic stress disorder) (CMS/HCC)Start: 03-28-2024 End: 74-75-7332Titenvpmjxbvd w/patient 60 minutesPTSD (post-traumatic stress disorder) ([facility]/HCC)Joselyn Santamaria LSWComment on above:PTSD (post-traumatic stress disorder) ([facility]/HCC)Start: 03-21-2024 End: 05-91-1454Ykqusjgkvgpqa w/patient 60 minutesPTSD (post-traumatic stress disorder) ([facility]/HCC)Joselyn Santamaria LSWComment on above:PTSD (post-traumatic stress disorder) ([facility]/HCC); Irritability and angerStart: 03-15-2024 End: 65-08-1104Ojubfmcaeshrd w/patient 60 minutesPTSD (post-traumatic stress disorder) ([facility]/HCC)Joselyn Santamaria LSWComment on above:PTSD (post-traumatic stress disorder) (CMS/HCC)Start: 03-08-2024 End: 09-44-2008Rpzrmfouyewxd w/patient 60 minutesPTSD (post-traumatic stress disorder) (CMS/HCC)Joselyn Santamaria LSWComment on above:PTSD (post-traumatic stress disorder) (CMS/HCC)Start: 02-29-2024 End: 23-10-1322Pcxmmiyeyuwbc w/patient 60 minutesPTSD (post-traumatic stress disorder) (CMS/HCC)Joselyn Santamaria LSWComment on above:PTSD (post-traumatic stress disorder) (CMS/HCC)Start: 02-15-2024 End: 66-92-6287Korocdvahfc diagnostic evaluationIrritability and angerTammy Rosalio LSWComment on above:Irritability and anger; Adjustment disorder with mixed anxiety and depressed mood (CMS/HCC)Start: 12-82-5976Sxpkd dip stick/tablet rgnt non-auto w/o micrscpAlisha IBARRA Work Phone: Start: 52-74-1349Qzupephh tomography of abdomen and pelvis with contrastII Jacky Rolle Work Phone: Start: 99-15-8195Aq breast uni real time with image limitedKadi Moreno MD Work Phone: Start: 07-07-2022 End: 58-99-9722Xvqjklxqi mammography bi 2-view breast inc cadKadi Moreno MD Work Phone: Start: 94-65-7936Ccjpeduwual observation [Identifier] in Cervix by Cyto stainKadi Moreno MD Work Phone: Plan of Treatment DateCare ActivityDetailAuthorStart: 41-90-5077Jyaoxolw (RZV) Vaccine (1 of 2) Shingles (RZV) Vaccine (1 of 2)[facility]roHealthStart: 07-44-9243Flayhhowgxm [Mass/volume] in Serum or PlasmaCholesterolMetroHealthStart: 42-62-4850Crapj panelCholesterolMetroHealthStart: 88-62-2952Vdvznlxxz for malignant neoplasm of cervixNOMS HealthcareStart: 11-13-2024 End: 42-04-0147Efwmrzq encounter procedureNOMangum Regional Medical Center – Mangum Family MedinceComment on above:ArrivedStart: 11-13-2024 End: 65-86-9831DIX 1/2 ANTIGEN/ANTIBODY, FOURTH GENERATION W/RFLHIV 1/2 ANTIGEN/ANTIBODY, FOURTH GENERATION W/RFL Lab Routine Exposure to STD Expected: 11/13/2024 (Approximate), Expires: 11/13/2025[facility] Work Phone: Comment on above:Expected: 11/13/2024 (Approximate), Expires: 11/13/2025Start: 83-23-6220EDZOG-19 Vaccine ( season)COVID- 19 Vaccine ()NOMS HealthcareStart: 95-69-7913Leqqckmde vaccinationNOMS HealthcareStart: 06-20-2024 End: 97-85-9591Plhwfx Work06/20/2024 6:00 PM EDT Social Work [facility] [address] [place] [place] [address] Joselyn Santamaria LSWNOMS FNR BHStart: 06-12-2024 End: 20-24-4865Xlgdwwm encounter procedureNOMS CI FMComment on above:Arrived Start: 06-04-2024 End: 55-77-6136Kfyypxd encounter mmivfaaeq67/24/2025 1:00 PM EDT Office Visit [facility] [address] [facility] [address] [place] [phone] Kim Vora MD [address] [facility] [address] [place] [address] [facility] OBStart: 05-28-2024 End: 60-71-8703Lpzoclb encounter ijicygerz57/17/2025 8:00 AM EDT Office Visit [facility] [address] [place] [phone] Alisha Lou PA [address] [place] [address] [facility] FMStart: 05-15-2024 End: 01-07-4657Qnwznu WorkNOMS FNR BHComment on above:ArrivedStart: 05-10-2024 End: 36-74-9097Kxhizyn encounter vdsgmwcvi78/27/2025 3:30 PM EST Office Visit [facility] [address] [place] [address] Alisha Lou PA [address] [place] [address] [facility] FMStart: 05-09-2024 End: 08-85-7915Izjqze WorkNOMS FNR BHComment on above:ArrivedStart: 04-26-2024 End: 89-38-0098Cedjcq Work04/26/2024 4:00 PM EST Social Work [facility] [address] [facility] [place] [address] Joselyn Santamaria LSWNOMS FNR BHStart: 04-24-2024 End: 43-03-0509Myccluk encounter rqtpexzcu11/11/2025 3:30 PM EST Office Visit [facility] [address] [place] [address] Alisha Lou PA [address] [place] [address] ArrivedNOMS CI FMComment on above:ArrivedStart: 04-24-2024 End: 96-00-9866UEB Breast - bilateral screeningBilateral screening mammogram with tomosynthesis Imaging Routine Encounter for screening mammogram for malignant neoplasm of breast Expected: 04/24/2024, Expires: 06/22/2025[facility] Work Phone: Comment on above:Expected: 04/24/2024, Expires: 06/22/2025Start: 04-04-2024 End: 14-80-0459Xgvoie Work04/04/2024 6:00 PM EST Social Work [facility] [address] [facility] [place] [address] Joselyn Santamaria LSWNOMS FNR BHStart: 03-28-2024 End: 26-37-7877Zcyhqy Work03/28/2024 4:00 PM EST Social Work [facility] [address] [place] [address] Joselyn Santamaria,LSWNOMS FNR BHStart: 03-21-2024 End: 49-86-1779Dfogom Work03/21/2024 4:00 PM EST Social Work [facility] [address] [place] [address] Joselyn Santamaria,LSWNOMS FNR BHStart: 03-15-2024 End: 80-20-7515Ngmrzo WorkNOMS FNR BHComment on above:ArrivedStart: 03-08-2024 End: 14-36-2213Ovrfhp WorkNOMS FNR BHComment on above:ArrivedStart: 02-29-2024 End: 87-43-2025Mgidli WorkNOMS FNR BHComment on above:ArrivedStart: 02-15-2024 End: 59-59-8167Ocnuoi WorkNOMS FNR BHComment on above:Irritability and anger Start: 02-08-2024 End: 45-85-8406Dyfleam encounter heunhjluf01/27/2024 10:30 AM EST Office Visit [facility] [address] [facility] [address] [place] [address] Alisha Lou PA [address] [facility] [address] [place] [address] ArrivedNOMS CI FMComment on above:ArrivedStart: 11-22-2023 End: 76-73-7865Fvbklip encounter /10/2024 3:30 PM EDT Office Visit [facility] [address] [place] [address] Alisha Lou PA [address] [facility] [address] [place] [address] ArrivedNOMS CI FMComment on above:ArrivedStart: 11-22-2023 End: 57-85-8947WDKSZCF TRACT INFECTION (HTRX)URINARY TRACT INFECTION (HTRX) Lab Routine Acute pyelonephritis Right flank pain Expected: 11/22/2023 (Approximate), Expires: 11/21/2024[facility] Work Phone: Comment on above:Expected: 11/22/2023 (Approximate), Expires: 11/21/2024Start: 70-24-8649Wnieonf vaccinationTetanus (Td or Tdap) BoosterMetroHealthStart: 22-37-0346Cjsygizu identified in Urine by Culture [facility]: 06-63-9310MIXBF-19 Vaccine ()COVID-19 Vaccine ()[facility]HealthStart: 11-13-2023 Influenza vaccinationInfluenza Vaccine (#1)[facility] HealthcareStart: 10-23-2023 Screening for malignant neoplasm of cervixPap SmearMetroHealthStart: 07-08-2023 Screening for malignant neoplasm of breastMetroHealthStart: 29-80-3737Uxetngsfb vaccinationInfluenza Vaccine (#1)[facility]HealthStart: 72-39-2097Vbgqmvtxp vaccinationInfluenza Vaccine (#1)[facility]HealthStart: 08-03-2022 End: 56-78-5498Bcuryyi encounter riaarpybo27/23/2023 Office Visit Orthopedics Ruslan Chong MD [address] [place] [address] [phone] (Work) [facility] OrthopedicsStart: 07-08-2022 End: 63-90-6998CE Breast - leftUS BREAST/AXILLA LEFT Imaging Routine Abnormal finding on breast imaging Expected: 07/08/2022, Expires: 07/09/2023[facility] Work Phone: Comment on above:Expected: 07/08/2022, Expires: 07/09/2023Start: 91-16-9381Mfpzj metabolic 2000 panel - Serum or PlasmaBasic Metabolic PanelMetroHealthStart: 19-39-6399Msugrmnriz measurementBasic Metabolic PanelMetroHealthStart: 01-28-2022 End: 65-70-6203QCS Breast - bilateral screeningMG MAMMO SCREEN BILAT KOBE W/CAD Imaging Routine Screening mammogram for breast cancer Expected: 01/28/2022, Expires: 01/28/2023[facility] [employer] Work Phone: Comment on above:Expected: 01/28/2022, Expires: 01/28/2023Start: 53-55-9445Ahppjqkaz vaccinationInfluenza Vaccine (#1) [facility]HealthStart: 55-94-5446Hnpkqhodb for malignant neoplasm of breast MammographyMetroHealthStart: 54-86-3886Aoelkgm stimulating hormone measurement TSHMetroHealthStart: 93-58-7889Pulhgyuuu for malignant neoplasm of colon [facility]HealthStart: 96-58-6094ZYRZD-19 Vaccine (3 - Booster for Moderna series) COVID-19 Vaccine (3 - Booster for Moderna series)[facility]HealthStart: 07-18-2021 COVID-19 Vaccine (3 - Moderna series)COVID-19 Vaccine (3 - Moderna series) [facility]Start: 76-89-2583Pdsmfikgf A (HAV) Vaccine (optional start 19+ years) Hepatitis A (HAV) Vaccine (optional start 19+ years)[facility]Start: 10-15-1995 Hepatitis B vaccinationHepatitis B (HBV) Vaccine (1 of 3 - 19+ 3-dose series) [facility]Start: 26-35-3456Aaaafivqaqmq vaccinationPneumococcal Vaccine(s) (1 of 2 - PCV)[facility]HealthStart: 37-81-6269Tpictvspzjtd Vaccine: Pediatrics (0 to 5 Years) and At-Risk Patients (6 to 64 Years) (1 of 2 - PCV)Pneumococcal Vaccine: Pediatrics (0 to 5 Years) and At-Risk Patients (6 to 64 Years) (1 of 2 - PCV) [facility] HealthcareStart: 36-26-8931Vxeljhpfw C screeningHepatitis C Antibody [facility]Start: 21-07-7090Cmstqkfkmpvf vaccinationPneumococcal Vaccine(s) (1 - PCV)[facility]HealthStart: 35-08-7970WRYEP-19 Vaccine (#1)COVID-19 Vaccine (#1) [facility]Start: 26-82-3232KBLWW-19 Vaccine ( formulation)COVID-19 Vaccine ( formulation)[facility] HospitalStart: 03-98-7258Vwllwbiko for malignant neoplasm of colonMetroHealthBlood occult fecal hgb deter ia qual feces 1-3FECAL IMMUNOCHEMICAL TEST (FIT) Lab Routine Colon cancer screening Ordered: 05/27/2022[facility] [employer] Work Phone: Comment on above:Ordered: 05/27/2022BC W Auto Differential panel - BloodCBC and differential Lab Routine Wellness examination Primary hypertension (CMS/HCC) Abnormal CBC Ordered: 06/12/2024[facility] Healthcare Comment on above:Ordered: 06/12/2024omprehensive metabolic 2000 panel - Serum or PlasmaComprehensive metabolic panel Lab Routine Wellness examination Primary hypertension (CMS/HCC) Impaired fasting glucose Elevated ALT measurement Ordered: 06/12/2024[facility] HealthcareComment on above:Ordered: 06/12/2024Hemoglobin A1c/Hemoglobin.total in BloodHemoglobin A1c Lab Routine Wellness examination Impaired fasting glucose Ordered: 06/12/2024[facility] HealthcareComment on above: Ordered: 06/12/2024LAB COLOGUARD COLON CANCER SCREENLAB COLOGUARD COLON CANCER SCREEN Lab Routine Screening for colorectal cancer Ordered: 11/04/2022THE [employer] Work Phone: Comment on above:Ordered: 11/04/2022Lipid 1996 panel - Serum or PlasmaLipid panel Lab Routine Wellness examination Primary hypertension (CMS/HCC) Ordered: 06/12/2024[facility] HealthcareComment on above: Ordered: 06/12/2024Patient EducationKidney Infection (DC)[facility] Work Phone: [facility] referral[facility] Work Phone: TSH W/REFLEX TO FT4TSH W/REFLEX TO FT4 Lab Routine Postablative hypothyroidism (CMS/HCC) Ordered: 06/12/2024[facility] [employer] Work Phone: Comment on above:Ordered: 06/12/2024 Immunizations Immunization DateImmunizationNotesCare FtyviukhTwgtcyvs07-29-1579Vhvkecc Monovalent (12+ yrs) COVID-19 vaccine, mRNA, spike protein, LNP, PF, 100 mcg/0.5 mL (VKO=346)Erika Bazzi RN Work Phone: [phone]rGyrwwp95-15-2638Qtemwxo Monovalent (12+ yrs) COVID-19 vaccine, mRNA, spike protein, LNP, PF, 100 mcg/0.5 mL (EEN=131)Erika Bazzi RN Work Phone: [phone]eNhxsrb02-68-1930juepamb toxoid, reduced diphtheria toxoid, and acellular pertussis vaccine, adsorbedKadi Moreno MD Work Phone: [phone]yXjnozg96-83-4943fqnvksg, mumps and rubella virus vaccineLindsay Onesimo SALES AND SERVICE CHANGE LEADER Work Phone: [facility] CenterIksihdzevv28-61-3893rmcwfgkcsl skin test; purified protein derivative solution, intradermalLindsay Onesimo SALES AND SERVICE CHANGE LEADER Work Phone: [facility] CenterAqjjnqjsmy17-75-5491PS(adult) unspecified formulationLinshashi Echols SALES AND SERVICE CHANGE LEADER Work Phone: [facility] CenterHxrilisexw26-45-2507hrovywrtpw skin test; purified protein derivative solution, intradermalLindsay Onesimo SALES AND SERVICE CHANGE LEADER Work Phone: [facility] CenterDfvuncggvp44-93-5713waefwxygd virus vaccine, unspecified formulationKadi Moreno MD Work Phone: [phone]dAlwxma65-45-9266KA(adult) unspecified formulation Annalevi Echols SALES AND SERVICE CHANGE LEADER Work Phone: [facility] Healthcare Payers DatePayer CategoryPayerPolicy [id number] Managed Care - [facility] [id number] Health [place] [id number] Commercial IndemnityCOMMERCIAL INSURANCE - OTHER .[id number] 51-30-5914Glshvve3.2.840.579348.1.13.56.2.7.3.307962.57134-40-5249Shkqicg [id number] 2.0.1.977875.3.579.2.20615-23-1520Nihmdfw [id number] 2.0.1.024716.3.57[id number] 2.0.1.545016.3.579.[id number] 2.0.1.068483.3.579.2.[id number] 2.16.840.1.460117.3.57[id number] 2.16.840.1.063634.3.579.2.7[id number] 2..0.1.546402.3.579.2.823[id number] 2.0.1.355810.3.579.2.008603-06-4945Ayrhebp8973572 2..1.833509.3.579.2.304921-23-4756Jahznst3087886 2.0.1.443547.3.57[id number] 2..1.129903.3.579.2.[id number] 2..1.549341.3.579.2.929102-32-3630Emrohhf4830840 2..1.809312.3.579.2.881352-60-2380Dtbfdcn0718192 2.0.1.720355.3.579.2.550785-22-1351Jpokvrq1266264 2.0.1.755003.3.579.2.318286-95-8624Mueqnkb1598751 2.0.1.694228.3.579.2.048706-26-0499Qroatqg7760087 2.0.1.775189.3.579.[id number] 2.0.1.621979.3.579.2.378800-56-1518Gtgalqy5553820 2.0.1.391217.3.579.2.574390-23-0957Ulxjyjw4911612 2.0.1.470804.3.579.2.789669-32-3878Kkrfsqf6274216 2.0.1.222267.3.579.[id number] 2.0.1.390255.3.579.2.728922-30-157[id number] 2.0.1.911579.3.579.2.531 Social History DateTypeDetailFacilityStart: 10-15-2015 End: 85-45-3726Smxkmsz smoking status NHISEx-smokerMetroHealthStart: 03-14-2005 End: 02-68-4713Avcemdg of tobacco useCurrent smokerMetroHealthStart: 03-14-2005 End: 71-29-9316Jpgtwms of tobacco useCigarette SmokerMetroHealthStart: 10-15-2015 End: 84-31-5952Lxqxzymmpr smoked current (pack per day) - Reported0.5[facility] Start: 10-15-2015 End: 77-53-8055Lpaojyp use and exposureSmokeless tobacco non-userMetroHealth Start: 03-31-2021 End: 66-98-0525Wavfjvr intakeCurrent non-drinker of alcohol (finding)[facility] Start: 12-03-2020 End: 73-90-7733Udieaku SDOH Social Connections Vljvz4HblkmEghwbvAgbys: 12-03-2020 End: 74-63-1187Ccjyazf SDOH Social Connections Get Awedeiip1GkrmoRqieysTxlsr: 12-03-2020 End: 33-30-9088Svwwrkx SDOH Social Connections Auyphy4LjoosYrbuyjUjlpe: 12-03-2020 End: 70-65-3301Sqummep SDOH Social Connections Rqacnzwohx7GhrwwJxpblhAnkfa: 12-03-2020 End: 51-21-6494Bkixmtg SDOH Social Connections Vwfjmj2YdrpjRtsguwLotjd: 12-03-2020 End: 62-01-5336Ephzzna SDOH Physical Activity KCO8CxlfqPbveptWkkvo: 10-22-2020 Mvhxhnspv04GflzxWbaanoPcrrb: 16-67-1237Inn Assigned At BirthNot on file [facility]Start: 06-27-2022 End: 11-44-1961Hzqcrrsg to SARS-CoV-2 (event)YesMetroHealthStart: 11-22-2023 End: 53-39-6303Eojhim identityNot on fileMetroHealthStart: 81-42-5764Xpzkqjp smoking status NHISNever smoked tobacco (finding)[facility]: 50-87-5299Xfe Assigned At BirthFeSt. John of God Hospitaltart: 11-22-2023 End: 57-30-3628Quxaxzrcy beverage intakeEx-drinker (finding)[facility] Within the last year, have you been afraid of your partner or ex-partner?No MetroHealthAre you now , , , , never or living with a partner?Living with partnerMetroHealthHow hard is it for you to pay for the very basics like food, housing, medical care, and heatingNot very hardMetroHealthStart: 33-13-8376Gsyflcvogj depression screening assessment0 MetroHealthDo you feel stress - tense, restless, nervous, or anxious, or unable to sleep at night because yourmind is troubled all the time - these days [OSQ]To some extentMetroHealth(I/We) worried whether (my/our) food would run out before (I/we) got money to buy more.Never trueMetroHealthStart: 82-78-0508FygIiqufe (finding)[facility]HealthStart: 40-23-5108Beihsxhoh beverage intakeCurrent drinker of alcohol (finding)[facility] HealthcareAre you now , , , , never or living with a partner?Never marriedNOMS Healthcare How often do you have a drink containing alcohol?Monthly or lessN[facility]S Healthcare How many standard drinks containing alcohol do you have on a typical day?3 or 4 [facility] HealthcareHow often do you have 6 or more drinks on 1 occasion?Less than monthlyNOMS HealthcareDo you feel stress - tense, restless, nervous, or anxious, or unable to sleep at night because yourmind is troubled all the time - these days [OSQ]Only a littleNOMS HealthcareHow often do you need to have someone help you when you read instructions, pamphlets, or other written material from your doctor or pharmacy [SILS]NeverN[facility] Goals DatePatient GoalDesired Activity/StatePersonal health goalPersonal health goal Functional Status VhxcEpipudcvuwYraaylEwtsbkas17-02-5015Urwvfqa Health Questionnaire 2 item (PHQ- 2) [Reported][facility] Ochdvqiaqu30-61-7345Xnmxj score [AUDIT-C]3 01/17/2025 7:55 AM EST Mychart, GenericNOSSM Health [facility] Glenn[facility] Children's HospitalFhqpfhhsfv43-14-3577Rhj often do you have a drink containing alcohol?Monthly or less 01/17/2025 7:55 AM EST Mychart, Generic Monthly or lessNOMS Pcgsecjewq63-40-8536Hvi many standard drinks containing alcohol do you have on a typical day?3 or 4 01/17/2025 7:55 AM EST Mychart, Generic 3 or 4NOMS Efxyjdqetk69-47-0112Mom often do you have 6 or more drinks on 1 occasion?Less than monthly 01/17/2025 7:55 AM EST Mychart, Generic Less than monthlyJohn J. [facility] Clinical Notes 03-14-2021 to 01-17-2025 Note Date & SnksZxpzXjnagtkn22-86-1706 History of Present illness Narrative* STACEY Bean - 01/17/2025 9:00 AM EST Subjective Patient ID: Radha Mills is a 49 y.o. female who [...] have helped initially. Her boyfriend lives in [place] so she has been staying at hotels. [...] lb 9.6 oz SpO2 98% BMI 38.89 kg/m Smoking Status Former BSA 2.05 m Review of Systems Constitutional: Positive for fatigue. [...] 02/16/2025 Medication Follow Up). documented in this encounterJohn J. Pershing VA Medical CenterYerftktoxc62-33-0735 History of Present illness Narrative* Mee Prakash NP - 12/24/2024 12:10 PM EDT Images from the original note were not included. [address] , [address] [facility], [address] P: [phone] F: [phone] HPI Historian of HPI: patient Radha Mills is a 49 y.o. female who presents today to the Urgent Care with the following complaints and denials due to a rash to the neck which has been present for 1 day(s) C/O Denies Symptom Comments [x] [] pain [] [x] burning [x] [] swelling [x] [] erythema [] [x] Erythematous streaking [x] [] itching Additional Comments: Pt reports that the rash is are worsening. Thinks she has shingles, had it about 3 years ago pt has taken benadryl, cortisone cream OTC medication without relief Chills and cold sweats Pt states this is how her usual shingles presents. States she did stay in a hotel and thinks she got a bug bite to the right side of her neck. And then she noticed the rash to the left side. ROS A complete system ROS was performed and negative aside from the pertinent positives noted in the HPI and PE. PHYSICAL EXAM Examination General Examination: General Examination: Alert, oriented, normal affect, well-appearing, in no acute distress, well developed, well nourished. Head: normocephalic, atraumatic Eyes: Sclera clear Oral Cavity: mucosa moist, Neck/Thyroid: neck supple, full range of motion Skin: right occipital neck with approx 1cm round indurated well circumscribed papule. Left occiptalscalp, left posterior auricular and left lateral neck with well circumscribed indurated erythematous papules that follow a line. No s/s bacterial infection. Heart: no murmurs, regular rate and rhythm, S1, S2 normal Lungs: clear to auscultation bilaterally Extremities: no edema, no cyanosis Neurologic: nonfocal Psych: alert, oriented, cognitive function intact, cooperative with exam. TREATMENT PLAN 1. Herpes zoster without complication (Primary) Pt reports this feels like her usual shingles outbreak. Consider outlier lesion on right side as unrelated insect bite. Start valtrex-see rx. Discussed contagious to those who have not had vz dz or Iz until lesions crusted. Immediate eval if new, worsening sx otherwise must follow up with PCP to discuss recurrent outbreaks. - valACYclovir (Valtrex) 1 g tablet; Take 1 tablet (1,000 mg) by mouth every 8 (eight) hours for 7 days Dispense: 21 tablet; Refill: 0 documented in this encounterJohn J. Pershing VA Medical CenterEtfzapwfsw84-11-9397 Telephone encounter Note* Telephone Encounter - STACEY Bean - 11/13/2024 9:52 PM EDT Resent Rx. [place] [address]Dccjxcfkwi81-39-6247 Miscellaneous Notes* Telephone Encounter - STACEY Bean - 11/13/2024 9:52 PM EDT Resent Rx. * Telephone Encounter - Destiny Melgoza MA - 11/13/2024 4:30 PM EDT This is to be for 30 days and it needs to last this long documented in this encounterJohn J. Pershing VA Medical CenterVqdpsynbtz06-77-2290 Telephone encounter Note* Telephone Encounter - Destiny Melgoza MA - 11/13/2024 4:30 PM EDT This is to be for 30 days and it needs to last this long [facility] CenterFgirbnpfrd71-13-5124 History of Present illness Narrative* STACEY Bean - 11/13/2024 4:00 PM EDT Images from the original note were not included. HPI ADHD Additional comments: She is currently on Strattera. She is also on Venlafaxine and she is not sure if one of them are making her feel really tired so would like to discuss maybe one of them being decreased. Still has trouble finishing projects that she starts. Med Refill Additional comments: Tramadol Last edited by STACEY Bean on 11/13/2024 4:17 PM. Subjective Patient ID: Radha Mills is a 49 y.o. female who presents for hand pain. Radha is present today for follow up hand pain. She is currently on Tramadol as needed and is working well for her. Still losing more hair than she thinks she should, but it is better than it was. States her ex cheated on her and she would like to be checked for HIV. Continues to try to lose weight gradually. Has gotten her portion sizes under control. Current Outpatient Medications on File Prior to Visit Medication Sig Dispense Refill atomoxetine (Strattera) 25 MG capsule Take 1 capsule (25 mg) by mouth Daily Swallow capsule whole; do not open. If opened accidentally, do not touch eyes; wash hands immediately (product is an eye irritant). 100 capsule 3 cyclobenzaprine (Flexeril) 10 MG tablet Take 1 tablet (10 mg) by mouth in the morning and 1 tablet (10 mg) in the evening and 1 tablet (10 mg) before bedtime. Do all this for 20 days. 30 tablet 1 levothyroxine (Synthroid, Levoxyl) 137 MCG tablet Take 137 mcg by mouth in the morning. Take beforemeals. 90 tablet 3 triamterene-hydroCHLOROthiazide (Dyazide) 37.5-25 MG capsule Take 1 capsule by mouth in the morning. 90 capsule 3 [DISCONTINUED] traMADol (Ultram) 50 MG tablet Take 1 tablet (50 mg) by mouth every 6 (six) hours ifneeded for severe pain for up to 7 days 28 tablet 0 [DISCONTINUED] venlafaxine XR (Effexor XR) 75 MG 24 hr capsule Take 1 capsule by mouth once daily 30 capsule 11 No current facility-administered medications on file prior to visit. I have reviewed and reconciled the history and medication list with the patient today. Allergies Allergen Reactions Adderall [Amphetamine-Dextroamphetamine] Headache Jittery, Agitation, Memory changes Penicillins GI intolerance took amoxicillin with no problem Sulfa Antibiotics stomache pains Amoxicillin-Pot Clavulanate GI intolerance Bupropion Other, Itching and Rash Other Reaction(s): Dry mouth Cefaclor Rash Vyvanse [Lisdexamfetamine] Hair Loss Social History Tobacco Use Smoking status: Former Current packs/day: 0.00 Types: Cigarettes Start date: 2005 Quit date: 2012 Years since quittin.6 Smokeless tobacco: Never Vaping Use Vaping status: Never Used Substance Use Topics Alcohol use: Not Currently Drug use: Never Family History Problem Relation Name Age of Onset Hypertension Mother Atrial fibrillation Mother Ulcerative colitis Father Past Medical History: Diagnosis Date Bilateral carpal tunnel syndrome 12/20/2019 COVID-19 with pulmonary comorbidity 04/10/2021 Depression Disease of thyroid gland Pyelonephritis 02/08/2024 Past Surgical History: Procedure Laterality Date CARPAL TUNNEL RELEASE Bilateral CHOLECYSTECTOMY HERNIA REPAIR Visit Vitals BP (!) 146/92 Pulse 78 Resp 16 Ht 5' 2 Wt 215 lb 3.2 oz SpO2 97% BMI 39.36 kg/m Smoking Status Former BSA 2.07 m Review of Systems Objective Physical Exam Constitutional: General: She is not in acute distress. Appearance: Normal appearance. She is well-developed. HENT: Head: Normocephalic and atraumatic. Eyes: General: [...] time. Psychiatric: Mood and Affect: Mood normal. Speech: Speech normal. Behavior: Behavior is agitated (Mildly). Thought Content: Thought content normal. Assessment/Plan Diagnoses and all orders for this visit: Primary hypertension BP was elevated in the office today, however, pt had a few things she was frustrated about today which likely contributed. Concerns addressed. Will continue current medication at this time and continue to monitor. Goal remains < 130/80. Bilateral hand pain - traMADol (Ultram) 50 MG tablet; Take 1 tablet (50 mg) by mouth every 6 (six) hours if needed for severe pain, Medication choice and dosage is appropriate for patient's current medical conditions. Patient will continue to be required to be seen in our office at least every three months for monitoring. At eachfollow up visit I will reassess the patient's need for the medication. Patient is to have this medication prescribed only through this office. Failure to follow the rules and regulations will result in tapering and discontinuation of medications if applicable. Patient verbalized understanding. OARRS Report was reviewed for this patient. Exposure to STD - HIV 1/2 ANTIGEN/ANTIBODY, FOURTH GENERATION W/RFL; Future Will check HIV today at pt's request. Will notify pt of the results once received. Generalized anxiety disorder - venlafaxine XR (Effexor XR) 37.5 MG 24 hr capsule; Take 1 capsule (37.5 mg) by mouth Daily Will decrease the Venlafaxine to 37.5 mg to see if her fatigue improves. Class 2 severe obesity due to excess calories with serious comorbidity and body mass index (BMI) of39.0 to 39.9 in adult ([facility]) On 04/06/23 patient weighed 282 lbs. She has lost 67 pounds since then. Encouraged pt to continue toaim for healthy diet, stay active. Continue to aim for gradual weight loss. Attention or concentration deficit Continue current Strattera dosage for now. May need to increase if fatigue improves with decrease in Venlafaxine. Follow up in about 3 months (around 02/12/2025) for Medication Follow Up. documented in this encounterJohn J. Pershing VA Medical CenterSwawmayzqa20-58-3075 Miscellaneous Notes* Telephone Encounter - Rocío Payne - 11/06/2024 4:50 PM EDT Patient scheduled * Telephone Encounter - Rocío Payne - 11/06/2024 1:49 PM EDT Lvm * Telephone Encounter - STACEY Bean - 11/06/2024 12:50 PM EDT OARRS reviewed, Rx sent into patient's pharmacy. One week supply sent. She needs an appointment within the next month. Last refill until seen. documented in this [address]26-2025 Telephone encounter Note* Telephone Encounter - Rocío Payne - 11/06/2024 4:50 PM EDT Patient scheduled [address]Bfndtwjndn80-84-6885 Telephone encounter Note* Telephone Encounter - STACEY Bean - 11/06/2024 4:49 PM EDT Resent Rx to [facility] in [place]. Called and LM to let pt know that the Rx was resent to [place]. [id number] Miscellaneous Notes* Telephone Encounter - STACEY Bean - 11/06/2024 4:49 PM EDT Resent Rx to [facility] in [place]. Called and LM to let pt know that the Rx was resent to [place]. documented in this encounter48 [address] [id number] Telephone encounter Note* Telephone Encounter - Rocío Payne - 11/06/2024 1:49 PM EDT Lvm [id number] Telephone encounter Note* Telephone Encounter - STACEY Bean - 11/06/2024 12:50 PM EDT OARRS reviewed, Rx sent into patient's pharmacy. One week supply sent. She needs an appointment within the next month. Last refill until seen. [facility] CenterMnavdyyhrs06-08-0715 Telephone encounter Note* Telephone Encounter - STACEY Bean - 10/03/2024 9:31 AM EDT My Chart message sent. [facility] [id number] Miscellaneous Notes* Telephone Encounter - STACEY Bean - 10/03/2024 9:31 AM EDT My Chart message sent. documented in this [facility]05-20-2025 Telephone encounter Note* Telephone Encounter - STACEY Bean - 07/31/2024 8:54 AM EDT OARRS reviewed, Rx sent into patient's pharmacy. [facility] [id number] Miscellaneous Notes* Telephone Encounter - STACEY Bean - 07/31/2024 8:54 AM EDT OARRS reviewed, Rx sent into patient's pharmacy. documented in this [facility]04-02-2025 History of Present illness Narrative* STACEY Bean - 06/13/2024 11:59 AM EDT Adderall sent in for pt. documented in this [facility]04-01-2025 History of Present illness Narrative* STACEY Bean - 06/12/2024 3:30 PM EDT Images from the original note were not included. Subjective Patient ID: Radha Mills is a 48 y.o. female who presents for wellness. Subjective Radha Mills is a 48 y.o. female and is here for a comprehensive physical exam. The patient reports she would like to discuss a different medication other than the Vyvanse d/t shefeels the Vyvanse is making her hair fall out, worse over the last week of taking it. States she has not had the Vyvase since . Does have a history of alopecia that was aggravated by stress. Doing counseling, and therapy. Feels edgy and has trouble paying attention. Feels like the effects were wearing off around 4-5 pm.[place] like while she was on it she was able to focus more and could tell a positive difference with the medication. [place] more grounded. Current Outpatient Medications on File Prior to Visit Medication Sig Dispense Refill cyclobenzaprine (Flexeril) 10 MG tablet Take 1 tablet (10 mg) by mouth in the morning and 1 tablet (10 mg) in the evening and 1 tablet (10 mg) before bedtime. Do all this for 20 days. 30 tablet 1 levothyroxine (Synthroid, Levoxyl) 137 MCG tablet Take 137 mcg by mouth in the morning. Take beforemeals. 90 tablet 3 traMADol (Ultram) 50 MG tablet Take 1 tablet (50 mg) by mouth every 6 (six) hours if needed for severe pain 90 tablet 0 triamterene-hydroCHLOROthiazide (Dyazide) 37.5-25 MG capsule Take 1 capsule by mouth in the morning. 90 capsule 3 venlafaxine XR (Effexor XR) 75 MG 24 hr capsule Take 1 capsule by mouth once daily 30 capsule 11 [DISCONTINUED] lisdexamfetamine (Vyvanse) 20 MG capsule Take 1 capsule (20 mg) by mouth in the morning. 30 capsule 0 [DISCONTINUED] lisdexamfetamine (Vyvanse) 30 MG capsule Take 1 capsule (30 mg) by mouth in the morning. 30 capsule 0 [DISCONTINUED] ondansetron (Zofran) 4 MG tablet Take 1 tablet (4 mg) by mouth every 8 (eight) hoursif needed for nausea 20 tablet 0 No current facility-administered medications on file prior to visit. I have reviewed and reconciled the history and medication list with the patient today. Allergies Allergen Reactions Amoxicillin-Pot Clavulanate GI intolerance Penicillins GI intolerance took amoxicillin with no problem Sulfa Antibiotics stomache pains Bupropion Other, Itching and Rash Other Reaction(s): Dry mouth Cefaclor Rash Social History Tobacco Use Smoking status: Former Current packs/day: 0.00 Types: Cigarettes Start date: 2005 Quit date: 2012 Years since quittin.2 Smokeless tobacco: Never Vaping Use Vaping status: Never Used Substance Use Topics Alcohol use: Not Currently Drug use: Never Family History Problem Relation Name Age of Onset Hypertension Mother Atrial fibrillation Mother Ulcerative colitis Father Past Medical History: Diagnosis Date Bilateral carpal tunnel syndrome 12/20/2019 COVID-19 with pulmonary comorbidity 04/10/2021 Depression (CMS/HCC) Disease of thyroid gland (CMS/HCC) Pyelonephritis 02/08/2024 Past Surgical History: Procedure Laterality Date CARPAL TUNNEL RELEASE Bilateral CHOLECYSTECTOMY HERNIA REPAIR Visit Vitals BP 138/86 (BP Location: Left arm) Pulse 79 Resp 16 Ht 5' 2 Wt 242 lb 3.2 oz SpO2 96% BMI 44.30 kg/m Smoking Status Former BSA 2.19 m Review of Systems Constitutional: Positive for unexpected weight change (Loss). Negative for chills, fatigue and fever. HENT: Negative for congestion, ear pain, rhinorrhea and sore throat. Eyes: Negative for pain, discharge and visual disturbance. Respiratory: Negative for cough, shortness of breath and wheezing. Cardiovascular: Negative for chest pain, palpitations and leg swelling. Gastrointestinal: Negative for abdominal pain, constipation, diarrhea, nausea and vomiting. Genitourinary: Negative for difficulty urinating, dysuria and frequency. Musculoskeletal: Negative for arthralgias and back pain. Skin: Negative for rash. Neurological: Negative for dizziness and numbness. Psychiatric/Behavioral: Positive for decreased concentration. Negative for sleep disturbance. The patient is not nervous/anxious. Objective Physical Exam Constitutional: General: She is not in acute distress. Appearance: She is well-developed. She is obese. Comments: Face flushed HENT: Head: Normocephalic and atraumatic. Right Ear: Tympanic membrane normal. Left Ear: Tympanic membrane normal. Ears: Comments: Mild erythema bilateral canals Nose: Nose normal. Mouth/Throat: Mouth: Mucous membranes are moist. Pharynx: No posterior oropharyngeal erythema. Eyes: General: No scleral icterus. Extraocular Movements: Extraocular movements intact. Conjunctiva/sclera: Conjunctivae normal. Pupils: Pupils are equal, round, and reactive to light. Cardiovascular: Rate and Rhythm: Normal rate and regular rhythm. Heart sounds: Normal heart sounds. No murmur heard. Pulmonary: Effort: Pulmonary effort is normal. No respiratory distress. Breath sounds: Normal breath sounds. No wheezing, rhonchi or rales. Abdominal: General: Bowel sounds are normal. There is no distension. Palpations: Abdomen is soft. Tenderness: There is no abdominal tenderness. There is no guarding. Musculoskeletal: General: No swelling or deformity. Normal range of motion. Cervical back: Normal range of motion and neck supple. No tenderness. Skin: General: Skin is warm and dry. Capillary Refill: Capillary refill takes less than 2 seconds. Findings: No rash. Neurological: General: No focal deficit present. Mental Status: She is alert and oriented to person, place, and time. Cranial Nerves: No cranial nerve deficit. Sensory: No sensory deficit. Motor: No weakness. Gait: Gait normal. Deep Tendon Reflexes: Reflexes normal. Psychiatric: Mood and Affect: Mood normal. Behavior: Behavior normal. Thought Content: Thought content normal. Judgment: Judgment normal. Assessment/Plan Diagnoses and all orders for this visit: Wellness examination Wellness form reviewed in detail with the patient. Encouraged patient to stay up to date on immunizations and preventative testing. Encouraged healthy diet, stay active. Will continue with yearly wellness exams. Screening for malignant neoplasm of colon - Ambulatory referral to General Surgery; Future Provided pt with referral for Screening Colonoscopy. If it is WNL, would plan to repeat in 10 years. Other chronic pain Medication choice and dosage is appropriate for patient's current medical conditions. Patient will continue to be required to be seen in our office at least every three months for monitoring. At eachfollow up visit I will reassess the patient's need for the medication. Patient is to have this medication prescribed only through this office. Failure to follow the rules and regulations will result in tapering and discontinuation of medications if applicable. Patient verbalized understanding. OARRS Report was reviewed for this patient. Mild intermittent asthma without complication (CMS/HCC) Symptoms stable at this time without inhalers. Primary hypertension (CMS/HCC) BP improved on recheck. Continue current medication for now, will continue to monitor. Class 3 severe obesity due to excess calories with serious comorbidity and body mass index (BMI) of40.0 to 44.9 in adult Encouraged portion control, decrease simple sugars and carbohydrates, gradually increase activity level. Aim for continued gradual steady weight loss. Impaired fasting glucose Will recheck with upcoming fasting labs. Postablative hypothyroidism (CMS/HCC) - TSH W/REFLEX TO FT4 Will check with a lab draw today and notify pt of the results once received. Other seborrheic dermatitis This is a chronic medical condition that is stable since last assessment. Abnormal CBC Will recheck with upcoming fasting labs. Adjustment disorder with mixed anxiety and depressed mood (CMS/HCC) Anxiety and Depression have been stable with the Venlafaxine. Encouraged her to continue with counseling as this has been helpful for patient. Attention or concentration deficit Vyvanse causing side effects for patient. Was starting to notice improvement in her symptoms regarding concentration and edginess. Will await results of thyroid function testing. Consider Adderall trial at 10 mg XR to assess tolerability. Elevated ALT measurement Will recheck with upcoming fasting labs. Generalized anxiety disorder (CMS/HCC) Anxiety and Depression have been stable with the Venlafaxine. History of COVID-19 H/o, no current complaints. Irritability and anger This was improved with stimulant class medication. PTSD (post-traumatic stress disorder) (CMS/HCC) Encouraged her to continue with counseling as this has been helpful for patient. Rosacea This is a chronic medical condition that is stable since last assessment. Plantar fasciitis This is a chronic medical condition that is stable since last assessment. Bilateral hand pain This is a chronic medical condition that is stable since last assessment. Portal vein thrombosis H/o, no current complaints. Follow up for Medication Follow Up. documented in this encounterNOSSM Health [facility]'s [id number] Telephone encounter Note* Telephone Encounter - STACEY Bean - 06/11/2024 5:12 PM EDT OARRS reviewed, Rx sent into patient's pharmacy. [facility] [id number] Miscellaneous Notes* Telephone Encounter - STACEY Bean - 06/11/2024 5:12 PM EDT OARRS reviewed, Rx sent into patient's pharmacy. documented in this encounterJohn [facility]. [facility] [id number] Telephone encounter Note* Telephone Encounter - STACEY Bean - 05/08/2024 7:59 AM EST Called and left voicemail that patient is ok to take both medications. [facility] [id number] Miscellaneous Notes* Telephone Encounter - STACEY Bean - 05/08/2024 7:59 AM EST Called and left voicemail that patient is ok to take both medications. * Telephone Encounter - GRAYSON ZIMMERMAN - 05/07/2024 10:26 AM EST Hi, it is Judith calling from [facility] in [place]. Our phone number is [phone]. Clearly, on a patient's prescription. Her name is Lisa Do, last name Angel. As in [place], I do her birthdayis [phone] and she is a patient of Alisha Nance, it looks like she is just starting on the TONI 20 mg.Anytime we fill a controlled substance, there is just a checklist of things that we go through. 1 of them is she is on opioid. It looks like she takes tram at all. She is gotten a couple scripts for that over the last few months, which does have sedative properties and then we have by Avina, which is, you know, stimulant. So I have drugs with opposite effects, controlled drugs. It looks like you are the prescriber for both. So I just wanted to make sure you are aware and that you are still okaywith us filling both if you could give us a Call [phone]. Thank you documented in this encounterNOSSM Health Cardinal Glennon Children's [id number] Telephone encounter Note* Telephone Encounter - GRAYSON ZIMMERMAN - 05/07/2024 10:26 AM EST Hi, it is Judith calling from [facility] in [place]. Our phone number is [phone]. Clearly, on a patient's prescription. Her name is Lisa Do, last name V. As in [place], I do her birthdayis [phone] and she is a patient of Alisha Nance, it looks like she is just starting on the TONI 20 mg.Anytime we fill a controlled substance, there is just a checklist of things that we go through. 1 of them is she is on opioid. It looks like she takes tram at all. She is gotten a couple scripts for that over the last few months, which does have sedative properties and then we have by Avina, which is, you know, stimulant. So I have drugs with opposite effects, controlled drugs. It looks like you are the prescriber for both. So I just wanted to make sure you are aware and that you are still okaywith us filling both if you could give us a Call [phone]. Thank you [facility] [id number] Telephone encounter Note* Telephone Encounter - Hever Gordon - 05/03/2024 10:20 AM EST Letter sent 05/03 for pt to call to r/s appt due to [facility] being out of the office [facility] [id number] Miscellaneous Notes* Telephone Encounter - Hever Gordon - 05/03/2024 10:20 AM EST Letter sent 05/03 for pt to call to r/s appt due to [facility] being out of the office documented in this encounterNOSSM Health Cardinal Glenn[facility] Children's [id number] Telephone encounter Note* Telephone Encounter - STACEY Bean - 05/03/2024 8:15 AM EST Patient stopped by office yesterday. Discussed with pt. Awaiting decision from insurance company. [facility] [id number] Miscellaneous Notes* Telephone Encounter - STACEY Bean - 05/03/2024 8:15 AM EST Patient stopped by office yesterday. Discussed with pt. Awaiting decision from insurance company. * Telephone Encounter - Concepcion Davila LPN - 05/02/2024 8:51 AM EST LM on VM that insurance required more information and that information was faxed to them on 05/01/24and we have not received a fax on their decision yet. * Telephone Encounter - Destiny Melgoza MA - 05/01/2024 9:01 AM EST Lm to cb to see which med she is referring to * Telephone Encounter - STACEY Bean - 05/01/2024 8:46 AM EST Please call patient and see what she is referring to, which medication? Then check to see if that one has been sent in for her. * Telephone Encounter - GRAYSON ZIMMERMAN - 04/30/2024 4:52 PM EST Patient called asking if her medications have been approved and is someone could call her. documented in this encounterNOSSM Health Cardinal Glenn[facility] Children's [id number] Telephone encounter Note* Telephone Encounter - Concepcion Davila LPN - 05/02/2024 8:51 AM EST LM on VM that insurance required more information and that information was faxed to them on 05/01/24and we have not received a fax on their decision yet. [facility] [id number] Telephone encounter Note* Telephone Encounter - Destiny Melgoza MA - 05/01/2024 9:01 AM EST Lm to cb to see which med she is referring to [facility] [id number] Telephone encounter Note* Telephone Encounter - STACEY Bean - 05/01/2024 8:46 AM EST Please call patient and see what she is referring to, which medication? Then check to see if that one has been sent in for her. [facility] [id number] Telephone encounter Note* Telephone Encounter - GRAYSON ZIMMERMAN - 04/30/2024 4:52 PM EST Patient called asking if her medications have been approved and is someone could call her. [facility] [id number] History of Present illness Narrative* STACEY Bean - 04/24/2024 3:30 PM EST Images from the original note were not included. HPI ADHD Additional comments: Pt feels she has some issues with her attention. She feels like she cannot shut her mind off, does not complete or follow through with things, takes her longer to learn things than most people and over thinks everything. Last edited by Concepcion Davila LPN on 04/24/2024 3:31 PM. Subjective Patient ID: Radha Mills is a 48 y.o. female who presents for anxiety. Radha is present today for follow anxiety. At her last o/v her Venlafaxine was increased to 75 mg and Buspar as needed was added. She feels that neither one has helped. She is seeing therapy and hertherapist feels she may have ADD and would like to discuss maybe a med for her ADD. States she constantly worries. Does not feel the Buspar helped. Does feel that the increase in Venlafaxine was somewhat helpful. Admits to starting multiple tasks without completing them. Admits had problems when she was a childwith difficulty focusing. States has trouble clearing her head. Therapist thinks it may be leading into OCD type tendencies. Still working on losing weight. Has cut back on carbs and sugars. Admits to binge eating on occasion. Current Outpatient Medications on File Prior to Visit Medication Sig Dispense Refill cyclobenzaprine (Flexeril) 10 MG tablet Take 1 tablet (10 mg) by mouth in the morning and 1 tablet (10 mg) in the evening and 1 tablet (10 mg) before bedtime. Do all this for 20 days. 30 tablet 1 levothyroxine (Synthroid, Levoxyl) 137 MCG tablet Take 137 mcg by mouth in the morning. Take beforemeals. 90 tablet 3 ondansetron (Zofran) 4 MG tablet Take 1 tablet (4 mg) by mouth every 8 (eight) hours if needed for nausea 20 tablet 0 traMADol (Ultram) 50 MG tablet Take 1 tablet (50 mg) by mouth every 6 (six) hours if needed for severe pain 90 tablet 0 triamterene-hydroCHLOROthiazide (Dyazide) 37.5-25 MG capsule Take 1 capsule by mouth in the morning. 90 capsule 2 venlafaxine XR (Effexor XR) 75 MG 24 hr capsule Take 1 capsule (75 mg) by mouth Daily 30 capsule 0 [DISCONTINUED] busPIRone (Buspar) 10 MG tablet Take 1 tablet (10 mg) by mouth 2 (two) times a day as needed (Anxiety) (Patient not taking: Reported on 04/24/2024) 60 tablet 2 [DISCONTINUED] nystatin (Mycostatin) 325254 UNIT/ML suspension No current facility-administered medications on file prior to visit. I have reviewed and reconciled the history and medication list with the patient today. Allergies Allergen Reactions Amoxicillin-Pot Clavulanate GI intolerance Penicillins GI intolerance took amoxicillin with no problem Sulfa Antibiotics stomache pains Bupropion Other, Itching and Rash Other Reaction(s): Dry mouth Cefaclor Rash Social History Tobacco Use Smoking status: Former Current packs/day: 0.00 Types: Cigarettes Start date: 2005 Quit date: 2012 Years since quittin.1 Smokeless tobacco: Never Vaping Use Vaping status: Never Used Substance Use Topics Alcohol use: Not Currently Drug use: Never Family History Problem Relation Name Age of Onset Hypertension Mother Atrial fibrillation Mother Ulcerative colitis Father Past Medical History: Diagnosis Date Depression (CMS/HCC) Disease of thyroid gland (CMS/HCC) Pyelonephritis 02/08/2024 Past Surgical History: Procedure Laterality Date CARPAL TUNNEL RELEASE Bilateral CHOLECYSTECTOMY HERNIA REPAIR Visit Vitals BP 128/88 (BP Location: Left arm) Pulse 75 Resp 16 Ht 5' 2 Wt 247 lb SpO2 98% BMI 45.18 kg/m Smoking Status Former BSA 2.21 m Review of Systems Constitutional: Negative for chills, fatigue and fever. Respiratory: Negative for cough, shortness of breath and wheezing. Cardiovascular: Negative for chest pain, palpitations and leg swelling. Gastrointestinal: Negative for abdominal pain, constipation, diarrhea, nausea and vomiting. Skin: Negative for rash. Psychiatric/Behavioral: Positive for decreased concentration. Objective Physical Exam Constitutional: General: She is [...] all orders for this visit: Primary hypertension (CMS/HCC) BP improved on recheck. Will continue to monitor closely while pt is on Vyvanse. Controlling her BPwill likely continue to become easier as she continues to lose weight. Encouraged her to monitor her BP periodically. Generalized anxiety disorder ([facility]) Does feel like the increase in Venlafaxine was helpful, but attributes a significant amount of her anxiety to her difficulty concentrating. Will continue to monitor. Encouraged her to continue with counseling. Attention or concentration deficit - lisdexamfetamine (Vyvanse) 20 MG capsule; Take 1 capsule (20 mg) by mouth in the morning. Discussed risks of this class of medication including the potential for abuse, reliance. Patient will be required to be seen in our office at least every three months for monitoring. At each follow up visit I will reassess the patient's need for the medication. Patient is to have this medication prescribed only through this office. Failure to follow the rules and regulations will result in tapering and discontinuation of medications if applicable. Patient verbalized understanding. OARRS Report was reviewed for this patient. Can increase the dosage if needed. Screening for malignant neoplasm of colon - Ambulatory referral to General Surgery; Future Provided pt with referral to for screening Colonoscopy. Encounter for screening mammogram for malignant neoplasm of breast - Bilateral screening mammogram with tomosynthesis; Future Provided patient with an order for an updated Mammogram. If results are negative/normal, will plan to continue with routine yearly screenings. Screening for malignant neoplasm of cervix - Ambulatory referral to Gynecology; Future Provided pt with referral to CARDIOLOGIST for updated PAP smear. Binge eating - lisdexamfetamine (Vyvanse) 20 MG capsule; Take 1 capsule (20 mg) by mouth in the morning. Vyvanse as prescribed. Class 3 severe obesity due to excess calories with serious comorbidity and body mass index (BMI) of45.0 to 49.9 in adult ([facility]) Pt has lost 14 pounds since her last appointment. She is doing well. Encouraged continue portion control, decrease simple sugars and carbohydrates, gradually increase activity level. Aim for continued gradual steady weight loss. Bilateral hand pain Medication choice and dosage is appropriate for patient's current medical conditions. Patient will continue to be required to be seen in our office at least every three months for monitoring. At eachfollow up visit I will reassess the patient's need for the medication. Patient is to have this medication prescribed only through this office. Failure to follow the rules and regulations will result in tapering and discontinuation of medications if applicable. Patient verbalized understanding. OARRS Report was reviewed for this patient. She uses the Tramadol as needed. Other chronic pain Pain Management agreement reviewed with patient and signed by both patient and provider. Reviewed the potential risks of opioid therapy including potential for [employer] s/e, GI s/e, respiratory s/e, dermatologic s/e, and urinary s/e, in addition to potential for allergic reaction, tolerance of the medication, dependence on the medication, potential for withdrawal with abrupt cessation, and potential for addiction. Also reviewed patient responsibilities regarding opioid therapy, and reasons why medication may need to be discontinued. See Chronic Opioid Therapy Agreement document for complete details. Follow up in about 4 weeks (around 05/22/2024) for Wellness, Fasting Labs. documented in this [facility]01-20-2025 Telephone encounter Note* Telephone Encounter - STACEY Bean - 04/02/2024 12:58 PM EST OARRS reviewed, Rx sent into patient's pharmacy. [facility] [id number] Miscellaneous Notes* Telephone Encounter - STACEY Bean - 04/02/2024 12:58 PM EST OARRS reviewed, Rx sent into patient's pharmacy. documented in this [facility]12-19-2024 Telephone encounter Note* Telephone Encounter - Jacky Rolle MD - 03/01/2024 10:11 AM EST Psychiatry referral. [facility] [id number] Miscellaneous Notes* Telephone Encounter - Jacky Rolle MD - 03/01/2024 10:11 AM EST Psychiatry referral. documented in this [facility]12-16-2024 Telephone encounter Note* Telephone Encounter - STACEY Bean - 02/27/2024 5:03 PM EST OARRS reviewed, Rx sent into patient's pharmacy. [facility] [id number] Miscellaneous Notes* Telephone Encounter - STACEY Bean - 02/27/2024 5:03 PM EST OARRS reviewed, Rx sent into patient's pharmacy. documented in this encounterJohn J. [facility] [id number] History of Present illness Narrative* STACEY Bean - 02/08/2024 10:30 AM EST Images from the original note were not included. Subjective Patient ID: Radha Mills is a 48 y.o. female who presents for a medication follow up. Radha is in today to discuss her mental health, states she recently got broken up with by her 9 yrrelationship and [address] of residence. Has been evicted and must be out by 02/16. States she just has been struggling mentally and is not herself at all. States she is having a hard time focusin g/concentrating and getting panic attacks. This has been going on for a month as of 02/06 She is still taking her Venlafaxine however doesn't feel its working, she informs that she has a counseling session setup with Joselyn Santamaria in [place], sees her 02/14. Denies any thoughts of self harm or suicidal ideations Tried to work on Tuesday and had a mental breakdown. Has not gone in this week. Scheduled to go back on Tuesday. Is trying to eat healthier and watching her portions. Admits some of the weight loss has been stress also. Will be moving in with a friend for the time being, looking for an apartment. Works at [employer]. Current Outpatient Medications on File Prior to Visit Medication Sig Dispense Refill levothyroxine (Synthroid, Levoxyl) 137 MCG tablet Take 137 mcg by mouth in the morning. Take beforemeals. 90 tablet 2 nystatin (Mycostatin) 706132 UNIT/ML suspension ondansetron (Zofran) 4 MG tablet Take 1 tablet (4 mg) by mouth every 8 (eight) hours if needed for nausea 20 tablet 0 triamterene-hydroCHLOROthiazide (Dyazide) 37.5-25 MG capsule Take 1 capsule by mouth in the morning. 90 capsule 2 [DISCONTINUED] venlafaxine XR (Effexor XR) 37.5 MG 24 hr capsule Take 1 capsule (37.5 mg) by mouth Daily 90 capsule 2 cyclobenzaprine (Flexeril) 10 MG tablet Take 1 tablet (10 mg) by mouth in the morning and 1 tablet (10 mg) in the evening and 1 tablet (10 mg) before bedtime. Do all this for 20 days. 30 tablet 1 [DISCONTINUED] traMADol (Ultram) 50 MG tablet Take 1 tablet (50 mg) by mouth every 6 (six) hours ifneeded for severe pain for up to 10 days 30 tablet 0 No current facility-administered medications on file prior to visit. I have reviewed and reconciled the history and medication list with the patient today. Allergies Allergen Reactions Amoxicillin-Pot Clavulanate GI intolerance Penicillins GI intolerance took amoxicillin with no problem Sulfa Antibiotics stomache pains Bupropion Other, Itching and Rash Other Reaction(s): Dry mouth Cefaclor Rash Social History Tobacco Use Smoking status: Former Current packs/day: 0.00 Types: Cigarettes Start date: 2005 Quit date: 2013 Years since quittin.9 Smokeless tobacco: Never Substance Use Topics Alcohol use: Not Currently Drug use: Never Family History Problem Relation Name Age of Onset Hypertension Mother Atrial fibrillation Mother Ulcerative colitis Father Past Medical History: Diagnosis Date Depression (CMS/HCC) Disease of thyroid gland (CMS/HCC) Pyelonephritis 02/08/2024 Past Surgical History: Procedure Laterality Date CARPAL TUNNEL RELEASE Bilateral CHOLECYSTECTOMY HERNIA REPAIR Visit Vitals BP 135/85 Pulse 79 Resp 16 Wt 261 lb 3.2 oz SpO2 97% BMI 47.77 kg/m Smoking Status Former BSA 2.27 m Review of Systems Constitutional: Negative for chills, fatigue and fever. Respiratory: Negative for cough, shortness of breath and wheezing. Cardiovascular: Negative for chest pain, palpitations and leg swelling. Gastrointestinal: Negative for abdominal pain, constipation, diarrhea, nausea and vomiting. Skin: Negative for rash. Psychiatric/Behavioral: Positive for agitation, decreased concentration and dysphoric mood. The patient is nervous/anxious. Objective Physical Exam [...] oriented to person, place, and time. Psychiatric: Attention and Perception: Attention normal. Mood and Affect: Mood is depressed (Mildly). Speech: Speech normal. Behavior: Behavior normal. Thought Content: Thought content normal. Cognition and Memory: Cognition normal. Judgment: Judgment normal. Assessment/Plan Diagnoses and all orders for this visit: Difficulty concentrating Will recheck after being on the higher dosage of Venlafaxine. Generalized anxiety disorder (CMS/HCC) - venlafaxine XR (Effexor XR) 75 MG 24 hr capsule; Take 1 capsule (75 mg) by mouth Daily - busPIRone (Buspar) 10 MG tablet; Take 1 tablet (10 mg) by mouth 2 (two) times a day as needed (Anxiety) Good discussion with pt today, active listening provided. Encouraged pt to keep her appointment with counseling as schedule. Increase Venlafaxine to 75 mg daily. May take a few weeks for full effect. Will add Buspar for as needed use. Reviewed instructions for taking the medication. Contact office if any problems with the medication changes. Will recheck at follow up in three months or sooner if needed. Bilateral hand pain - traMADol (Ultram) 50 MG tablet; Take 1 tablet (50 mg) by mouth every 6 (six) hours if needed for severe pain for up to 10 days OARRS report generated and reviewed. She takes the above as needed for hand pain. Has h/o carpal tunnel surgery. Works with her hands, and they do get painful at times. Class 3 severe obesity due to excess calories with serious comorbidity and body mass index (BMI) of45.0 to 49.9 in adult ([facility]) Has lost 18 pounds since her last appointment. Encouraged portion control, decrease simple sugars and carbohydrates, gradually increase activity level. Aim for continued gradual steady weight loss. Follow up in about 3 months (around 05/10/2024) for Medication Follow Up. documented in this [facility]11-22-2024 Telephone encounter Note* Telephone Encounter - Ivett Alexander - 02/03/2024 10:04 AM EST 20% CO PAY WITH UNLIMITED VISITS AFTER DEDUCTIBLE IS MET ] DEDUCTIBLE IS 800 AND 800 IS MET OUT OF POCKET IS 3200 AND 2040. Lmom ok, to schedule with Joselyn Santamaria [facility] [id number] Miscellaneous Notes* Telephone Encounter - Ivett Alexander - 02/03/2024 10:04 AM EST 20% CO PAY WITH UNLIMITED VISITS AFTER DEDUCTIBLE IS MET ] DEDUCTIBLE IS 800 AND 800 IS MET OUT OF POCKET IS 3200 AND 2040. Lmom ok, to schedule with Joselyn Santamaria documented in this [facility]11-08-2024 Telephone encounter Note* Telephone Encounter - STACEY Bean - 01/20/2024 8:01 AM EST OARRS reviewed, Rx sent into patient's pharmacy. [place] [id number] Miscellaneous Notes* Telephone Encounter - STACEY Bean - 01/20/2024 8:01 AM EST OARRS reviewed, Rx sent into patient's pharmacy. * Telephone Encounter - Destiny Melgoza MA - 01/20/2024 7:44 AM EST Can I get a refill of this medication today? I would like to stay in this medicine. It helps takingthis while working during the week. Am still having some pain and discomfort in my lower back. documented in this encounterJohn J. [facility] [id number] Telephone encounter Note* Telephone Encounter - Destiny Melgoza MA - 01/20/2024 7:44 AM EST Can I get a refill of this medication today? I would like to stay in this medicine. It helps takingthis while working during the week. Am still having some pain and discomfort in my lower back. [facility] [id number] Telephone encounter Note* Telephone Encounter - STACEY Bean - 12/09/2023 9:07 AM EDT OARRS reviewed, Rx sent into patient's pharmacy. [facility] [id number] Miscellaneous Notes* Telephone Encounter - STACEY Bean - 12/09/2023 9:07 AM EDT OARRS reviewed, Rx sent into patient's pharmacy. documented in this encounterJohn J. [facility] [id number] History of Present illness Narrative* STACEY Bean - 11/22/2023 3:30 PM EDT Images from the original note were not included. Subjective Patient ID: Radha Mills is a 48 y.o. female who presents for an ER follow up Radha is in today for an ER follow up, from when she went to [facility] for kidney stones and a UTI. She went into ER for sharp shooting pains in back and abdomen. She was put on some antinausea,antibiotic, and a pain medication. States she's not really feeling better says she's still nausea,dizzy and has back and abdominal pain feels the medication is just masking it. A couple of weeks ago thought she was getting shingles. Did go to an UC. Tramadol does constipate her some, but took some stool softeners and did have a decent BM at work today. Did not help with her pain Current Outpatient Medications on File Prior to Visit Medication Sig Dispense Refill cyclobenzaprine (Flexeril) 10 MG tablet Take 1 tablet (10 mg) by mouth in the morning and 1 tablet (10 mg) in the evening and 1 tablet (10 mg) before bedtime. Do all this for 20 days. 30 tablet 1 levothyroxine (Synthroid, Levoxyl) 137 MCG tablet Take 137 mcg by mouth in the morning. Take beforemeals. 90 tablet 2 nystatin (Mycostatin) 099856 UNIT/ML suspension ondansetron (Zofran) 4 MG tablet Take 1 tablet (4 mg) by mouth every 8 (eight) hours if needed for nausea 20 tablet 0 traMADol (Ultram) 50 MG tablet Take 1 tablet (50 mg) by mouth every 6 (six) hours if needed for severe pain for up to 10 days 30 tablet 0 triamterene-hydroCHLOROthiazide (Dyazide) 37.5-25 MG capsule Take 1 capsule by mouth in the morning. 90 capsule 2 venlafaxine XR (Effexor XR) 37.5 MG 24 hr capsule Take 1 capsule (37.5 mg) by mouth Daily 90 capsule 2 [DISCONTINUED] levoFLOXacin (Levaquin) 750 MG tablet TAKE 1 TABLET BY MOUTH ONCE DAILY FOR 4 DAYS [DISCONTINUED] cyclobenzaprine (Flexeril) 10 MG tablet Take 1 tablet (10 mg) by mouth in the morning and 1 tablet (10 mg) in the evening and 1 tablet (10 mg) before bedtime. Do all this for 20 days. 30 tablet 1 [DISCONTINUED] diclofenac (Voltaren) 75 MG EC tablet Take 75 mg by mouth 2 (two) times a day as needed [DISCONTINUED] gabapentin (Neurontin) 300 MG capsule Take 1 capsule (300 mg) by mouth in the morning and 1 capsule (300 mg) before bedtime. (Patient not taking: Reported on 10/31/2023) 60 capsule 2 [DISCONTINUED] ondansetron (Zofran) 4 MG tablet Take 4 mg by mouth every 8 (eight) hours if needed for nausea No current facility-administered medications on file prior to visit. I have reviewed and reconciled the history and medication list with the patient today. Allergies Allergen Reactions Amoxicillin-Pot Clavulanate GI intolerance Penicillins GI intolerance took amoxicillin with no problem Sulfa Antibiotics stomache pains Bupropion Other, Itching and Rash Other Reaction(s): Dry mouth Cefaclor Rash Social History Tobacco Use Smoking status: Former Current packs/day: 0.00 Types: Cigarettes Start date: 2005 Quit date: 2012 Years since quittin.6 Smokeless tobacco: Never Substance Use Topics Alcohol use: Not Currently Drug use: Never Family History Problem Relation Name Age of Onset Hypertension Mother Atrial fibrillation Mother Ulcerative colitis Father Past Medical History: Diagnosis Date Depression (CMS/HCC) Disease of thyroid gland (CMS/HCC) Past Surgical History: Procedure Laterality Date CARPAL TUNNEL RELEASE Bilateral CHOLECYSTECTOMY HERNIA REPAIR Visit Vitals BP (!) 130/95 Pulse 90 Temp 98.7 F Resp 18 Wt 279 lb SpO2 99% BMI 51.03 kg/m Smoking Status Former BSA 2.36 m Review of Systems Constitutional: Negative for chills, fatigue and fever. Respiratory: Negative for cough, shortness of breath and wheezing. Cardiovascular: Negative for chest pain, palpitations and leg swelling. Gastrointestinal: Positive for abdominal pain and nausea. Negative for constipation, diarrhea and vomiting. Musculoskeletal: Positive for back pain. Skin: Negative for rash. Neurological: Positive for dizziness. Objective Physical Exam Constitutional: General: She is not in acute distress. Appearance: She is well-developed. She is obese. HENT: Head: Normocephalic and atraumatic. Eyes: General: No scleral icterus. Conjunctiva/sclera: Conjunctivae normal. Neck: Thyroid: No thyromegaly. Cardiovascular: Rate and Rhythm: Normal rate and regular rhythm. Heart sounds: Normal heart sounds. No murmur heard. Pulmonary: Effort: Pulmonary effort is normal. No respiratory distress. Breath sounds: Normal breath sounds. No wheezing, rhonchi or rales. Abdominal: General: Abdomen is protuberant. There is no distension. Palpations: Abdomen is soft. Tenderness: There is abdominal tenderness in the right upper quadrant. There is right CVA tenderness. There is no left CVA tenderness. Musculoskeletal: Lumbar back: Tenderness present. Skin: General: Skin is warm and dry. Neurological: General: No focal deficit present. Mental Status: She is alert and oriented to person, place, and time. Psychiatric: Mood and Affect: Mood normal. Behavior: Behavior normal. Office Visit on 11/22/2023 Component Date Value Ref Range Status Color, UA 11/22/2023 Light Yellow Final Clarity, UA 11/22/2023 Cloudy Final Glucose, UA 11/22/2023 Negative Negative - 1999(110) ++++ mg/dL Final Bilirubin, UA 11/22/2023 Negative Negative - 4(70) +++ mg/dL Final Ketones, UA 11/22/2023 Negative Negative - 160(16) ++++ mg/dL Final Spec Grav, UA 11/22/2023 1.015 1 - 1.03 Final Blood, UA 11/22/2023 Positive Negative - 50 Khanh/mcL Final Trace, Non-hemolyzed pH, UA 11/22/2023 6.0 5 - 9 Final Protein, UA 11/22/2023 Negative Negative - 1999(20) ++++ mg/dL Final Urobilinogen, UA 11/22/2023 0.2 0.2 - 12 mg/dL Final Leukocytes, UA 11/22/2023 3+ Negative - 500+++ Troy/mcL Final Nitrite, UA 11/22/2023 Negative Negative - Positive Final Assessment/Plan Diagnoses and all orders for this visit: Acute pyelonephritis - phenazopyridine (Pyridium) 200 MG tablet; Take 1 tablet (200 mg) by mouth 3 (three) times a day as needed for bladder spasms for up to 2 days - levoFLOXacin (Levaquin) 750 MG tablet; Take 1 tablet (750 mg) by mouth Daily for 6 days - URINARY TRACT INFECTION (HTRX); Future - POCT urinalysis dipstick manually resulted Pt continues to have significant symptoms and UA remains abnormal. Will have her continue Levaquin for an additional 6 days for a total of 10 days of treatment. Also sent out a urine culture for further evaluation. Will notify pt of the results once received. Pt currently drinks at least 90 ounces of water a day. Encouraged her to continue to stay hydrated and make sure she drinks some sort of electrolyte solution once a day also. Phenazopyridine given for symptomatic relief. Advised will discolor her urine. Can use Tramadol or Tylenol prn for pain. Nephrolithiasis Offered referral to Urology. Pt would like to hold off for now, may consider in the future if needed. Right flank pain - URINARY TRACT INFECTION (HTRX); Future - POCT urinalysis dipstick manually resulted Will obtain a copy of the CT report from [facility]. Follow up if symptoms worsen or fail to improve. documented in this encounterJohn J. [facility] Medical [id number] Telephone encounter Note* Telephone Encounter - Jacky Rolle MD - 11/21/2023 1:30 PM EDT Rxs were sent. [facility] [id number] Miscellaneous Notes* Telephone Encounter - Jacky Rolle MD - 11/21/2023 1:30 PM EDT Rxs were sent. * Telephone Encounter - Shayy Fernandez LPN - 11/21/2023 11:23 AM EDT Called pt state states the tramadol she had at home was frfom years ago she states the oxycodone is too strong and makes her sick requesting short term of tramadol be sent has appt 11/27 * Telephone Encounter - Nani Zimmer - 11/21/2023 11:12 AM EDT Pt was seen in the ER with kidney stones. They prescribed antibiotics and oxycodone. The oxycodone is giving her headaches and making her feel sick. She'd like something different. She did say that she had leftover tramadol from pervious issue and that is working better. She only wants to see dr Rolle so I did make her an appointment for 11-27 at 4:15 documented in this encounterJohn J. [facility] Medical [id number] Telephone encounter Note* Telephone Encounter - Shayy Fernandez LPN - 11/21/2023 11:23 AM EDT Called pt state states the tramadol she had at home was frfom years ago she states the oxycodone is too strong and makes her sick requesting short term of tramadol be sent has appt 11/27 [facility] [id number] Telephone encounter Note* Telephone Encounter - Nani Zimmer - 11/21/2023 11:12 AM EDT Pt was seen in the ER with kidney stones. They prescribed antibiotics and oxycodone. The oxycodone is giving her headaches and making her feel sick. She'd like something different. She did say that she had leftover tramadol from pervious issue and that is working better. She only wants to see dr Rolle so I did make her an appointment for 11-27 at 4:15 [facility] [id number] History of Present illness Narrative* Anna Echols NP - 10/31/2023 12:40 PM EDT Images from the original note were not included. HPI: Historian of HPI: patient Radha Mills is a 48 y.o. female who presents today to the Urgent Care with the following complaints and denials which have been present for 2 day(s) C/O Denies Symptom Comments [] [x] Lesion [x] [] Rash [] [x] Lump [] [x] Bump [] [x] Depression [] [x] abscess [] [x] cellulitis [x] [] itching [x] [] pain [x] [] burning [x] [] Sensation of insects crawling Additional Comments: pt has not taken any OTC medications Pt denies the following living changes new laundry detergent, new shampoo, and new conditioner Pt reports hx of shingles and suspects an outbreak at this time. Pt states I feel sick and like a bug crawling sensation . Pt was seen in for last outbreak of shingles. Rash on back and rt side abdomen. ROS: A complete system ROS was performed and negative aside from the pertinent positives noted in the HPI and PE. Visit Vitals BP 140/82 Pulse 90 Temp 98 F Wt 275 lb SpO2 98% BMI 50.30 kg/m Smoking Status Former BSA 2.34 m Physical Exam Vitals reviewed. Constitutional: General: She is not in acute distress. Appearance: Normal appearance. HENT: Head: Normocephalic. Nose: Nose normal. Mouth/Throat: Mouth: Mucous membranes are moist. Pharynx: Oropharynx is clear. Eyes: Extraocular Movements: Extraocular movements intact. Conjunctiva/sclera: Conjunctivae normal. Pupils: Pupils are equal, round, and reactive to light. Cardiovascular: Rate and Rhythm: Normal rate and regular rhythm. Pulses: Normal pulses. Heart sounds: Normal heart sounds. Pulmonary: Effort: Pulmonary effort is normal. No respiratory distress. Breath sounds: No wheezing, rhonchi or rales. Musculoskeletal: General: Normal range of motion. Cervical back: Normal range of motion and neck supple. Skin: General: Skin is warm and dry. Capillary Refill: Capillary refill takes less than 2 seconds. Findings: Erythema and rash present. Neurological: General: No focal deficit present. Mental Status: She is alert and oriented to person, place, and time. Psychiatric: Mood and Affect: Mood normal. 1. Herpes zoster without complication Antiviral's shorten the duration of viral shedding, stop the formation of new lesions, and reduce pain severity. New meds as directed. Advised that patients can transmit the virus through fluids fromthe lesions to people without a history of chicken pox infection; therefore, direct body contact should be avoided. Covering lesions that are not usually covered by clothing may also decrease transmission. Avoid small children and women while rash is present - valACYclovir (Valtrex) 1 g tablet; Take 1 tablet (1,000 mg) by mouth in the morning and 1 tablet (1,000 mg) in the evening and 1 tablet (1,000 mg) before bedtime. Do all this for 7 days. Dispense: 21 tablet; Refill: 0 documented in this encounterJohn J. Pershing VA Medical [id number] NoteCalled to you to schedule an appointment with Movement Disorder Specialist, Dr. Aleksander Manning. Your Dr. Has put a referral in. Please Call [phone] or [phone] to schedule. Patient mailbox full, unable to leave a message.[facility]Socialthing [id number] Telephone encounter Note* Telephone Encounter - Caitlin Cloud RN - 12/10/2022 1:51 PM EDT Called to you to schedule an appointment with Movement Disorder Specialist, Dr. Aleksander Manning. Your Dr. Has put a referral in. Please Call [phone] or [phone] to schedule. Patient mailbox full, unable to leave a message. [id number] Miscellaneous Notes* Telephone Encounter - Caitlin Cloud RN - 12/10/2022 1:51 PM EDT Called to you to schedule an appointment with Movement Disorder Specialist, Dr. Aleksander Manning. Your DrBinh Has put a referral in. Please Call [phone] or [phone] to schedule. Patient mailbox full, unable to leave a message. documented in this [id number] NoteHand and Upper Extremity Clinic Progress Note: S: 46 year old female who presents with b/l hand pain (R>L). She had prior CTR of b/l hands. States that her numbness in her hands has since improved. She has experienced b/l hand pain for the past few months. 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 Localized to ulnar aspect of carpus. Also c/o cramping in digits, mainly R MF. Denies triggering of digits. Some intermittent numbness but in entire hand. Notes numbness was worsened when sitting in dentist chair recently. Only in RUE. Denies significant neck pain. Denies change in b/b habits or change in gait. ROS: Constitutional - denies fever, chills, night sweats Cardiac - denies CP, palpitations Respiratory - denies SOB, cough O: There were no vitals filed for this visit. General: Well-appearing, NAD, converses appropriately HEENT: Atraumatic, normocephalic, MMM Cardiac: RRR to peripheral palpation Pulmonary: Normal inspiratory effort, non-labored breathing Musculoskeletal: R upper extremity: - Skin intact. - No significant TTP - Negative durken, tinnel, phalen test - AIN/PIN/Uln motor fxn intact - SILT axillary, radial, median, ulnar - 2+ radial pulse. Cap refill < 2 seconds in all digits. - Compartments soft and compressible. Imaging: No additional imaging obtained A/P: 46 year old female with b/l hand pain/cramping. Also with diffuse hand numbness after hyperextension position (dentist chair). - pain/cramping unlikely related to prior carpal tunnel; would recommend neurology c/s for w/u - RUE radicular pain - [facility]/s for w/u - RTC prn Darrin Crespo MD Orthopaedic Surgery - PGY 4[facility]04-27-2023 History of Present illness Narrative* Erika Bazzi, FERMÍN - 07/08/2022 8:17 AM EDT Breast imaging reviewed by radiologist. Impression/Recommendation: MAMMOGRAM FINDINGS: The breast tissue is heterogeneously dense, which may obscure detection of small masses. There is a mass in the lower inner quadrant of the left breast at posterior depth. No suspicious masses, calcifications or other abnormalities are seen in the right breast. IMPRESSION: Mass in the left breast requires additional evaluation. A diagnostic left breast ultrasound exam ([id number]) is recommended. There is no evidence of malignancy in the right breast. Orders placed per radiologist recommendations. Patient will be contacted to schedule appropriate appointments. Erika Bazzi RN Breast Piercing Artist/Navigator [phone] documented in this [id number] NoteBI-RADS Category0: Incomplete, Needs Additional Imaging EvaluationRADIOLOGYMetroProvidence [facility] Work Phone: [phone] 307-637601-01-2022 NoteInfectious Disease COVID-19 COVID-19 is a respiratory infection that is caused by a virus called severe acute respiratory syndrome coronavirus 2 (SARS-CoV-2). The disease is also known as coronavirus disease or novel coronavirus. In some people, the virus may not cause any symptoms. In others, it may cause a serious infection. The infection can get worse quickly and can lead to complications, such as: ? Pneumonia, or infection of the lungs. ? Acute respiratory distress syndrome or ARDS. This is fluid build-up in the lungs. ? Acute respiratory failure. This is a condition in which there is not enough oxygen passing from the lungs to the body. ? Sepsis or septic shock. This is a serious bodily reaction to an infection. ? Blood clotting problems. ? Secondary infections due to bacteria or fungus. The virus that causes COVID-19 is contagious. This means that it can spread from person to person through droplets from coughs and sneezes (respiratory secretions). What are the causes? This illness is caused by a virus. You may catch the virus by: ? Breathing in droplets from an infected person's cough or sneeze. ? Touching something, like a table or a doorknob, that was exposed to the virus (contaminated) and then touching your mouth, nose, or eyes. What increases the risk? Risk for infection You are more likely to be infected with this virus if you: ? Live in or travel to an area with a COVID-19 outbreak. ? Come in contact with a sick person who recently traveled to an area with a COVID-19 outbreak. ? Provide care for or live with a person who is infected with COVID-19. Risk for serious illness You are more likely to become seriously ill from the virus if you: ? Are 65 years of age or older. ? Have a long-term disease that lowers your body's ability to fight infection (immunocompromised). ? Live in a retirement or long-term care facility. ? Have a long-term (chronic) disease such as: ? Chronic lung disease, including chronic obstructive pulmonary disease or asthma ? Heart disease. ? Diabetes. ? Chronic kidney disease. ? Liver disease. ? Are obese. What are the signs or symptoms? Symptoms of this condition can range from mild to severe. Symptoms may appear any time from 2 to 14days after being exposed to the virus. They include: ? A fever. ? A cough. ? Difficulty breathing. ? Chills. ? Muscle pains. ? A sore throat. ? Loss of taste or smell. Some people may also have stomach problems, such as nausea, vomiting, or diarrhea. Other people may not have any symptoms of COVID-19. How is this diagnosed? This condition may be diagnosed based on: ? Your signs and symptoms, especially if: ? You live in an area with a COVID-19 outbreak. ? You recently traveled to or from an area where the virus is common. ? You provide care for or live with a person who was diagnosed with COVID-19. ? A physical exam. ? Lab tests, which may include: ? A nasal swab to take a sample of fluid from your nose. ? A throat swab to take a sample of fluid from your throat. ? A sample of mucus from your lungs (sputum). ? Blood tests. ? Imaging tests, which may include, X-rays, CT scan, or ultrasound. How is this treated? At present, there is no medicine to treat COVID-19. Medicines that treat other diseases are being used on a trial basis to see if they are effective against COVID-19. Your health care provider will talk with you about ways to treat your symptoms. For most people, the infection is mild and can be managed at home with rest, fluids, and kuhy-gxs-iwftqhb medicines. Treatment for a serious infection usually takes places in a hospital intensive care unit (ICU). It may include one or more of the following treatments. These treatments are given until your symptoms improve. ? Receiving fluids and medicines through an IV. ? Supplemental oxygen. Extra oxygen is given through a tube in the nose, a face mask, or a thao. ? Positioning you to lie on your stomach (prone position). This makes it easier for oxygen to get into the lungs. ? Continuous positive airway pressure (CPAP) or bi-level positive airway pressure (BPAP) machine. This treatment uses mild air pressure to keep the airways open. A tube that is connected to a motor delivers oxygen to the body. ? Ventilator. This treatment moves air into and out of the lungs by using a tube that is placed in your windpipe. ? Tracheostomy. This is a procedure to create a hole in the neck so that a breathing tube can be inserted. ? Extracorporeal membrane oxygenation (ECMO). This procedure gives the lungs a chance to recover bytaking over the functions of the heart and lungs. It supplies oxygen to the body and removes carbondioxide. Follow these instructions at home: Lifestyle ? If you are sick, stay home except to get medical care. Your health care provider will tell you how long to stay home. Call your health care provider before you go for medical care. ? Rest at h (more content not included)...[facility] Screening [facility] for breast cancer- [facility] Diagnosis Colon cancer screening- Primary Special screening for malignant neoplasms, colon [facility]* Diagnosis Abnormal finding on breast imaging- Primary Other (abnormal) findings on radiological examination of breast [facility]* Diagnosis Screening mammogram for breast cancer [facility]* Diagnosis Screening mammogram for breast cancer [facility]* Diagnosis Screening for colorectal cancer- Primary Special screening for malignant neoplasms, colon documented [facility] noteNo assessment information availableAvita [facility] Work Phone: Evaluation note* Diagnosis Nephrolithiasis Calculus of kidney documented in [facility] encounter [facility]* Diagnosis Difficulty concentrating- Primary Other general symptoms Generalized anxiety disorder (CMS/HCC) Generalized anxiety disorder Bilateral hand pain Class 3 severe obesity due to excess calories with serious comorbidity and body mass index (BMI) of45.0 to 49.9 in adult (CMS/HCC) documented in [facility] encounter [facility]* Diagnosis Irritability and anger Irritability Adjustment disorder with mixed anxiety and depressed mood (CMS/HCC) Adjustment disorder with mixed anxiety and depressed mood documented in this encounter [facility]* Diagnosis Bilateral hand pain [facility]* Diagnosis Herpes zoster without complication- Primary [facility]* Diagnosis Acute pyelonephritis- Primary Acute pyelonephritis without lesion of renal medullary necrosis Nephrolithiasis Calculus of kidney Right flank pain Abdominal pain, unspecified site documented [facility]* Diagnosis Nephrolithiasis- Primary Calculus of kidney [facility]* Diagnosis Nephrolithiasis Calculus of kidney [facility]* Diagnosis PTSD (post-traumatic stress disorder) ([facility]) Posttraumatic stress disorder documented [facility]* Diagnosis Attention deficit disorder, unspecified type- Primary PTSD (post-traumatic stress disorder) ([facility]) Posttraumatic stress disorder Obsessive-compulsive disorder, unspecified type ([facility]) [facility]* Diagnosis PTSD (post-traumatic stress disorder) ([facility]) Posttraumatic stress disorder [facility]* Diagnosis PTSD (post-traumatic stress disorder) ([facility]) Posttraumatic stress disorder documented [facility]* Diagnosis PTSD (post-traumatic stress disorder) ([facility]) Posttraumatic stress disorder Irritability and anger Irritability [facility]* Diagnosis Generalized anxiety disorder ([facility]) Generalized anxiety disorder Bilateral hand pain [facility]* Diagnosis PTSD (post-traumatic stress disorder) ([facility]) Posttraumatic stress disorder documented [facility]* Diagnosis Primary hypertension ([facility])- Primary Unspecified essential hypertension Generalized anxiety disorder ([facility]) Generalized anxiety disorder Attention or concentration deficit Screening for malignant neoplasm of colon Encounter for screening mammogram for malignant neoplasm of breast Screening for malignant neoplasm of cervix Screening for malignant neoplasm of the cervix Binge eating Anorexia nervosa Class 3 severe obesity due to excess calories with serious comorbidity and body mass index (BMI) of45.0 to 49.9 in adult ([facility]) Bilateral hand pain Other chronic pain [facility]* Diagnosis Attention or concentration deficit Binge eating Anorexia nervosa documented [facility]* Diagnosis Wellness examination- Primary Screening for malignant neoplasm of colon Other chronic pain Mild intermittent asthma without complication ([facility]) Primary hypertension ([facility]) Unspecified essential hypertension Class 3 severe obesity due to excess calories with serious comorbidity and body mass index (BMI) of40.0 to 44.9 in adult Impaired fasting glucose Postablative hypothyroidism ([facility]) Other postablative hypothyroidism Other seborrheic dermatitis Abnormal CBC Other abnormal blood chemistry Adjustment disorder with mixed anxiety and depressed mood ([facility]) Adjustment disorder with mixed anxiety and depressed mood Attention or concentration deficit Elevated ALT measurement Generalized anxiety disorder ([facility]) Generalized anxiety disorder History of COVID-19 Irritability and anger Irritability PTSD (post-traumatic stress disorder) ([facility]) Posttraumatic stress disorder Rosacea Plantar fasciitis Plantar fascial fibromatosis Bilateral hand pain Portal vein thrombosis documented [facility]* Diagnosis Attention or concentration deficit- Primary documented in [facility]* Diagnosis Bilateral hand pain documented [facility]* Diagnosis Bilateral hand pain documented [facility]* Diagnosis Bilateral hand pain documented [facility]* Diagnosis Primary hypertension- Primary Unspecified essential hypertension Bilateral hand pain Exposure to STD Generalized anxiety disorder Generalized anxiety disorder Class 2 severe obesity due to excess calories with serious comorbidity and body mass index (BMI) of39.0 to 39.9 in adult ([facility]) Attention or concentration deficit documented [facility]* Diagnosis Bilateral hand pain documented [facility]* Diagnosis Herpes zoster without complication- Primary [facility]* Diagnosis Primary hypertension- Primary Unspecified essential hypertension Generalized anxiety disorder Attention or concentration deficit Dermatitis Contact dermatitis and other eczema, due to unspecified cause Urticaria Unspecified urticaria [facility] Additional Instructions Please return to emergency department for any new or worrisome symptoms including any vomiting, fever, worsening abdominal pain, chest pain, shortness of breath. Take all antibiotics even if you start feeling better. Follow-up with your family physician within the next 3 to 5 days.[facility] Work Phone: Summary Purpose Family History No Family History Records FoundNo Family History Records FoundNo Family History Records FoundNo Family History Records FoundNo Family History Records FoundNo Family History Records Found Advance Directives No Advanced Directives Records FoundDocuments on File TypeDate RecordedPatient RepresentativeExplanationLiving Will06/29/2006Healthcare Power of Attorney06/29/2006Code StatusDate ActivatedDate InactivatedComments 07/22/2003 3:05 PM07/22/2003 3:05 PMTypeDate RecordedPatient Junior Electrical Engineer ExplanationLiving Will06/29/2006Healthcare Power of Attorney06/29/2006Code Status Date ActivatedDate InactivatedComments07/22/2003 3:05 PM07/22/2003 3:05 PMCode StatusDate ActivatedDate InactivatedCommentsNone07/22/2003 3:05 PM07/22/2003 3:05 PMCode StatusDate ActivatedDate InactivatedCommentsNone07/22/2003 3:05 PM 07/22/2003 3:05 PM Advance Directive Response Recorded Date/ Time Advance Directives No November 7:33pm Date ActivatedDate InactivatedComments07/22/2003 3:05 PM07/22/2003 3:05 PM Reason for Referral SpecialtyDiagnoses / ProceduresReferred By ContactReferred To ContactRadiology Diagnoses Screening mammogram for breast cancer Procedures MG MAMMO SCREEN BILAT KOBE W/CAD Kavon Roy MD [address] [place] [address] [facility] [place] [address] Referral IDStatusReasonStart DateExpiration DateVisits RequestedVisits [id number]/17/202211/17/[id number] / ProceduresReferred By ContactReferred To ContactRadiology Diagnoses Abnormal finding on breast imaging Procedures US BREAST/[place] [address] [place] [address] [facility] [place] [address] Referral IDStatusReasonStart DateExpiration DateVisits RequestedVisits [id number]/27/20234/[id number] IDStatusReasonStart DateExpiration DateVisits RequestedVisits [id number]/17/[id number] / ProceduresReferred By ContactReferred To ContactRadiology Diagnoses Screening mammogram for breast cancer Procedures US BREAST/AXILLA LEFT Kavon Roy MD [address] [place] [address] [facility] [place] [address] Referral IDStatusReasonStart DateExpiration DateVisits RequestedVisits [id number]/26/20234/ Chief Complaint and Reason for Visit Chief Complaint R flank pain Additional Source Comments INFORMATION SOURCE (unrecogn ized section and content) DATE CREATED AUTHOR 05/31/2021 [facility] DATE CREATED AUTHOR AUTHOR'S ORGANIZ ATION 07/03/2022 [facility] DATE CREATED AUTHOR AUTHOR'S ORGANIZ ATION 03/12/2023 [facility] DATE CREATED AUTHOR AUTHOR'S ORGANIZ ATION 11/16/2024 [facility] DATE CREATED AUTHOR AUTHOR'S ORGANIZ ATION 11/18/2024 [facility] DATE CREATED AUTHOR AUTHOR'S ORGANIZ ATION 01/18/2025 [facility] EPIC Care Teams (unrecognized sec tion and content) Team MemberRelationshipSpecialtyStart [place] [address] [place] [address] PCP - Kuhhsbl77/22/10 Ruslan Chong MD [address] [place] [address] PhysicianOrthopaedics05/16/20 Monique Jensen MD [address] [place] [phone] PhysicianObstetrics/Gynecology11/14/20Team MemberRelationshipSpecialtyStart Date [place] [address] PCP - Frjkhiu00/22/10 Ruslan Chong MD [address] [place] [address] PhysicianOrthopaedics05/16/20 Monique Jensen MD [address] [place] [phone] PhysicianObstetrics/Gynecology11/14/20Team MemberRelationshipSpecialtyStart Date End [place]adi [place] [id number] [place] [address] PCP - Ofsfnnw70/22/10 Ruslan Chong MD [address] [place] [address] PhysicianShanekaopaedics05/16/20 Monique Jensen MD [address] [place] [phone] PhysicianObstetrics/Gynecology11/14/20Team MemberRelationshipSpecialtyStart Date End Date Kadi [place]no [place] [id number] [place] [address] PCP - Fmrrcbg80/22/10 Ruslan Chong MD [address] [place] [address] PhysicianOrthopaedics05/16/20 Monique Jensen MD [address] [place] [phone] PhysicianObstetrics/Gynecology11/14/20Team MemberRelationshipSpecialtyStart Date [place] [address] PCP - Cjdfkqh12/22/10 Ruslan Chong MD [address] [place] [address] PhysicianOrthopaedics05/16/20 Monique Jensen MD [address] [place] [phone] PhysicianObstetrics/Gynecology11/14/20Team MemberRelationshipSpecialtyStart Date End [place] Kadi [place]no [place] [id number] [place] [address] PCP - Rakgkwm97/22/10 Ruslan Chong MD [address] [place] [address] PhysicianShanekaopaedics05/16/20 Monique Jensen MD [address] [place] [phone] PhysicianObstetrics/Gynecology11/14/20Team MemberRelationshipSpecialtyStart Date End [place] Kadi [place]no [place] [id number] [place] [address] PCP - Mmlxqib13/22/10 Ruslan Chong MD [address] [place] [address] PhysicianOrthopaedics05/16/20 Monique Jensen MD [address] [place] [phone] PhysicianObstetrics/Gynecology11/14/20Team MemberRelationshipSpecialtyStart Date [place] [address] PCP - Seprsyy34/22/10 Ruslan Chong MD [address] [place] [address] PhysicianOrthopaedics05/16/20 Monique Jensen MD [address] [place] [address] PhysicianObstetrics/Gynecology11/14/20Team MemberRelationshipSpecialtyStart Date End Date Kadi [place]no MD [id number] [place], [place] [address] PCP - Lmbpaqz74/22/10 Ruslan Chong MD [address] [place], [place] [id number] PhysicianShanekaopaedics05/16/20 Monique Jensen MD [address] [place] [address] PhysicianObstetrics/Gynecology11/14/20Team MemberRelationshipSpecialtyStart Date [place]adi [place]no [place] [id number] [place] [address] PCP - Jmhepgv76/22/10 Ruslan Chong MD [address] [place] [address] [employer]is[employer]05/16/20 Monique Jensen MD [address] [place] [phone] PhysicianObstetrics/Gynecology11/14/20 Team Status: Active Member Role Status Dates Jacky Rolle II MD Primary Care Provider Active Team Status: Inactive Member Role Status Dates Jacky Rolle II MD Primary Care Provider Active Start: November 18, 2023 End: November 17christian Gonzalez MDEmergency ProviderActiveStart: November 18, 2023 End: November 18, 2023Team MemberRelationshipSpecialtyStart DateEnd Date Jacky Rolle MD [address] [facility] [address] [place] [address] PCP - GeneralInternal Medicine03/21/23Team MemberRelationshipSpecialtyStart Date End Date Jacky Rolle MD [address] [facility] [address] [place] [address] PCP - GeneralInternal Medicine03/21/23Team MemberRelationshipSpecialtyStart Date End Date Jacky Rolle MD [address] [facility] [address] [place] [address] PCP - GeneralInternal Medicine03/21/23Team MemberRelationshipSpecialtyStart Date End Date Jacky Rolle MD [address] [facility] [address] [place] [address] PCP - GeneralInternal Medicine03/21/23Team MemberRelationshipSpecialtyStart Date End Date Jacky Rolle MD [address] [facility] [address] [place] [address] PCP - GeneralInternal Medicine03/21/23Team MemberRelationshipSpecialtyStart Date End Date Jacky Rolle MD [address] [place] [address] PCP - GeneralInternal Medicine03/21/23Team MemberRelationshipSpecialtyStart Date End Date Jacky Rolle MD [address] [place] [address] PCP - GeneralInternal Medicine03/21/23Team MemberRelationshipSpecialtyStart Date End Date Jacky Rolle MD [address] [place] [address] PCP - GeneralInternal Medicine03/21/23Team MemberRelationshipSpecialtyStart Date End Date Jacky Rolle MD [address] [place] [address] PCP - GeneralInternal Medicine03/21/23Team MemberRelationshipSpecialtyStart Date End Date Jacky Rolle MD [address] [place] [address] PCP - GeneralInternal Medicine03/21/23Team MemberRelationshipSpecialtyStart Date End Date Jacky Rolle MD [address] [place] [address] PCP - GeneralInternal Medicine03/21/23Team MemberRelationshipSpecialtyStart Date End Date Jacky Rolle MD [address] [place] [address] PCP - GeneralInternal Medicine03/21/23Team MemberRelationshipSpecialtyStart Date End Date Jacky Rolle MD [address] [place] [address] PCP - GeneralInternal Medicine03/21/23Team MemberRelationshipSpecialtyStart Date End Date Jacky Rolle MD [address] [facility] [address] [place] [address] PCP - GeneralInternal Medicine03/21/23Team MemberRelationshipSpecialtyStart Date End Date Jacky Rolle MD [address] [facility] [address] [place] [address] PCP - GeneralInternal Medicine03/21/23Team MemberRelationshipSpecialtyStart Date End Date Jacky Rolle MD [address] [facility] [address] [place] [address] PCP - GeneralInternal Medicine03/21/23Team MemberRelationshipSpecialtyStart Date End Date Jacky Rolle MD [address] [facility] [address] [place] [address] PCP - GeneralInternal Medicine03/21/23Team MemberRelationshipSpecialtyStart Date End Date Ruslan Chong MD [address] [place] [address] PhysicianOrthopaedics05/16/20 Monique Jensen MD [address] [place] [address] PhysicianObstetrics/Gynecology11/14/20Team MemberRelationshipSpecialtyStart Date End Date Jacky Rolle MD [address] [facility] [address] [place] [address] PCP - GeneralInternal Medicine03/21/23Team MemberRelationshipSpecialtyStart Date End Date Jacky Rolle MD [address] [place] [address] PCP - GeneralInternal Medicine03/21/23Team MemberRelationshipSpecialtyStart Date End Date Jacky Rolle MD [address] [place] [address] PCP - GeneralInternal Medicine03/21/23Team MemberRelationshipSpecialtyStart Date End Date Jacky Rolle MD [address] [facility] [address] [place] [address] PCP - GeneralInternal Medicine03/21/23 Reason for Visit (unrecogniz ed section and content) SpecialtyDiagnoses / ProceduresReferred By ContactReferred To ContactRadiology Diagnoses Screening mammogram for breast cancer Procedures MG MAMMO SCREEN BILAT KOBE W/CAD Kavon Roy MD [address] [place] [address] [place] [address] Referral IDStatusReasonStart DateExpiration DateVisits RequestedVisits [id number]/17/202211/17/[id number] / Procedures Referred By ContactReferred To ContactRadiology Diagnoses Screening mammogram for breast cancer Procedures US BREAST/AXILLA LEFT Kavon Roy MD [address] [place] [address] [place] [address] Referral IDStatusReasonStart DateExpiration DateVisits RequestedVisits [id number]/26/20234/[id number] session SpecialtyDiagnoses / ProceduresReferred By ContactReferred To ContactBehavioral Health Diagnoses Irritability and anger Procedures [place] OFFICE/OUTPATIENT [facility] Jacky Rolle MD [address] [facility] [address] [place] [address] Phone: tel: fax: Joselyn Santamaria LSW Referral IDStatusReasonStart DateExpiration DateVisits RequestedVisits [id number] Specialty Services Required /[id number] DateCommentsMed Gyygzl5902/27/2024easonOnset DateCommentsMed Ikfazu8911/23/2023easonOnset DateCommentsMed Uqzsbp0112/09/2023 ReasonCommentsCounseling sessionReasonOnset DateCommentsMed Rxsdxm4103/31/2024 ReasonCommentsTelephone TelehealthBulimiaReasonCommentsADHDPt feels she has some issues with her attention. She feels like she cannot shut her mind off, does n ot complete or follow through with things, takes her longer to learn things than most people and over thinks everything.ReasonOnset DateCommentsMed Refill 06/09/2024ReasonOnset DateCommentsMed Xqvpiq4107/31/2024ReasonOnset DateComments Med Wwlvze0611/06/2024ReasonCommentsADHDShe is currently on Strattera. She is also on Venlafaxine and she is not sure if one of them are making her feel really tired so would like to discuss maybe one of them being decreased.Still has troub le finishing projects that she starts.Med RefillTramadolReasonCommentsMed Change Request Goals (unrecognized section and content) Goals may be documented in a n alternate section FOR RECORDS PERTAINING TO PATIENTS WHO ARE OR HAVE BEEN ENROLLED IN A CHEMICAL DEPENDENCY/SUBSTANCEABUSE PROGRAM, SOME INFORMATION MAY BE OMITTED. This clinical summary was aggregated from multiple sources. Caution should be exercised in using it in the provision of clinical care. This summary normalizes information from multiple sources, and as a consequence, information in this document may materially change the coding, format and clinical context of patient data. In addition, data may be omitted in some cases. CLINICAL DECISIONS SHOULD BE BASED ON THE PRIMARY CLINICAL RECORDS. [facility]. provides no warranty or guarantee of the accuracy or completeness of information in this document.
--- NOTE | 2025-01-24 13:00 | ED_ITS ---
HPI HPI - General Adult General Chief complaint: Skin/Abscess/Foreign Body Stated complaint: rash Time Seen by Provider: 01/24/25 12:34 Source: patient Mode of arrival: walk-in Limitations: no limitations History of Present Illness HPI narrative: The patient is a 49-year-old female presenting to the ER with a history of hives that been going on for the last 2 months at least since November The patient mentioned that she there is no trigger to it and she was treated throughout the time with Benadryl as well as sometimes Kenalog injection that did not help her except temporary The patient denies any other complaints Related Data Previous Rx's ?Medication ?Instructions ?Recorded diclofenac sodium 75 mg 75 mg PO BID PRN pain #14 ta bs 01/12/23 tablet,delayed release orphenadrine citrate 100 mg 100 mg PO DAILY PRN muscle spasm 01/12/23 tablet,extended release #10 tabs prednisone 20 mg tablet 40 mg (2 x 20 mg) PO DAILY 3 days 01/24/25 #6 tabs Allergies Allergy/AdvReac Type Severity Reaction Status Date / Time amoxicillin (From Augmentin) Allergy Severe Verified 01/12/23 13:38 cefaclor (From Ceclor) Allergy Severe Verified 01/12/23 13:38 clavulanic acid (From Allergy Severe Verified 01/12/23 13:38 Augmentin) Sulfa (Sulfonamide Allergy Severe Verified 01/12/23 13:38 Antibiotics) Opioid HPI Opioid Management Most Recent Opioid Data: Last Pain Scale 5 01/12/23, 14:03 Review of Systems ROS Status of ROS 10 or more systems reviewed and unremark able except as noted in history and below PFSH PFSH Social History Little interest or pleasure in doing things: not at all Feeling down, depressed, or hopeless: not at all Exam Narrative Exam Narrative: Nurses notes and vital signs reviewed and patient is not hypoxic. General: Well-appearing and in no apparent distress. Skin: Hive-like rash on her upper extremity mostly posteriorly it is macular, mostly in the posterior left elbow Head: Normocephalic, atraumatic. Neck: Supple, non-tender. Eye: Pupils are equal, round and EOMI. No scleral icterus. Ears, Nose, Mouth, and Throat: TM are clear, no nasal mucosal hypertrophy. Oral mucosa is moist, no posterior oropharynx erythema, uvula is mid-line Cardiovascular: Regular Rate and Rhythm without murmur, gallop or rub. Respiratory: No accessory muscle use or respiratory distress. Lungs are clear to auscultation, no wheezing, rales or rhonchi Chest Wall: no tenderness Back: No midline thoracic or lumbar vertebral tenderness. No CVA tenderness Musculoskeletal: normal ROM, no calf or popliteal tenderness, no lower extremity edema/swelling GI: Abdomen is soft, non-distended. Normal bowel sounds. No masses appreciated. No tenderness to palpation. No rebound, guarding, or rigidity noted. Neurological: A&O x4. No cranial nerve dysfunction observed. No truncal ataxia. Moves all extremities. Sensation intact. Psychiatric: Cooperative and interactive. Normal mood and affect. Constitutional Vital Signs, click to edit/add: Last Vital Signs Temp 98.4 F 01/24/25 12:14 Pulse 82 01/24/25 12:14 Resp 18 01/24/25 12:14 BP 175/94 H 01/24/25 12:14 Pulse Ox 100 01/24/25 12:14 O2 Del Method Room Air 01/24/25 12:14 Course Vital Signs Vital signs: Vital Signs Temperature 98.4 F 01/24/25 12:14 Pulse Rate 82 01/24/25 12:14 Respiratory Rate 18 01/24/25 12:14 Blood Pressure 175/94 H 01/24/25 12:14 Pulse Oximetry 100 01/24/25 12:14 Oxygen Delivery Method Room Air 01/24/25 12:14 Temperature 98.4 F 01/24/25 12:14 Pulse Rate 82 01/24/25 12:14 Respiratory Rate 18 01/24/25 12:14 Blood Pressure 175/94 H 01/24/25 12:14 Pulse Oximetry 100 01/24/25 12:14 Oxygen Delivery Method Room Air 01/24/25 12:14 Medical Decision Making MDM Narrative Medical decision making narrative: The patient did not have any tongue swelling or any compromise of the airway Her rash was limited to the posterior aspect of the both elbows mostly the left arm The patient right now will be treated with Eloina as well as prednisone for the next 2 days She is referred to the drawer in [place] in the outpatient The patient to follow-up with the primary care within 2 to 3 days and to come back to the ER in case of any worsening of the current symptoms or any new symptoms or concerns Discharge Plan Discharge Chief Complaint: Skin/Abscess/Foreign Body Clinical Impression: Hives Patient Disposition: Home, Self-Care Time of Disposition Decision: 13:02 Condition: Good Prescriptions / Home Meds: New prednisone 20 mg tablet 40 mg PO DAILY 3 Days Qty: 6 0RF No Action orphenadrine citrate 100 mg tablet extended release 100 mg PO DAILY PRN (Reason: muscle spasm) Qty: 10 0RF diclofenac sodium 75 mg tablet,delayed release (DR/EC) 75 mg PO BID PRN (Reason: pain) Qty: 14 0RF Print Language: Vietnamese Instructions: Urticaria (ED) Referrals: DINO READ [Primary Care Provider, Internal Medicine] - 1 week Discharge Date/Time: 01/24/25 13:27
[2025-01-24] MEDS: PREDNISONE 20 MG TABLET 40 MG PO (13:15)
--- NOTE | 2025-01-24 13:25 | PC.NURSE ---
pt c/o hives started couple weeks ago that come and go.
== END 2025-01-24 13:27 | disposition home or self-care (01) ==
PROVIDERS: Emergency Provider Emergency Medicine; PCP Internal Medicine
DX: L50.9 Urticaria, unspecified (principal)
CPT/HCPCS: 99283; J7512